=== PATIENT | male | born 1945 | race Caucasian/White ===

== ENCOUNTER 2020-02-02 16:15 | Outpatient (REF) | payer OTHER, SELFPAY ==
[2020-02-02 22:21] LABS: Abs Immature Grans 0.04 10^3/uL (0.0-0.06); Absolute Basophil Count 0.03 10^3/uL (0.0-0.2); Absolute Eosinophil Count 0.19 10^3/uL (0.0-0.7); Absolute Lymphocyte Count 1.22 10^3/uL (1.2-3.4); Absolute Neutrophil Count 7.78 10^3/uL (1.2-6.7); Basophils % 0.3; Eosinophils % 1.9; HCT 39.6 % (40.0-50.0); HGB 12.6 g/dL (13.5-17.5); Immature Grans % 0.4; Lymphocytes % 12.4; MCH 29.8 pg (27.0-33.0); MCHC 31.8 % (32.0-36.0); MCV 93.6 fL (80-95); MPV 10.2 fL (8.0-11.0); Monocytes % 6.1; Neutrophils % 78.9; Nucleated RBC 0 %; Platelet Count 365 10^3/uL (130-400); RBC 4.23 10^6/uL (4.36-5.78); RDW 12.9 % (11.8-14.1); RDW-SD 44.1 fL; WBC 9.86 10^3/uL (4.4-10.8)
[2020-02-02 22:47] LABS: ALT 15 U/L (16-63); AST 13 U/L (15-37); Albumin 3.7 g/dL (3.4-5.0); Alkaline Phosphatase 45 U/L (46-116); Anion Gap 6.2 mmol/L (3-11); BUN 24 mg/dL (7-18); Bilirubin, Total 0.4 mg/dL (0.2-1.0); CO2 28.8 mmol/L (21.0-32.0); CREATININE 0.84 mg/dL (0.70-1.30); Calcium 8.9 mg/dL (8.5-10.1); Calculated LDL 106 mg/dL (<100); Chloride 104 mmol/L (98-107); Cholesterol 182 mg/dL (<200); Glucose 87 mg/dL (74-106); HDL Cholesterol 63 mg/dL (40-60); Sodium 139 mmol/L (136-145); Total Protein 6.5 g/dL (6.4-8.2); Triglyceride 68 mg/dL (<150)
== END 2020-02-02 16:35 ==
LOC: NCHCN 16:15
PROVIDERS: PCP Family Medicine; Visit Provider Family Medicine
DX: D64.9 Anemia, unspecified (principal); N41.9 Inflammatory disease of prostate, unspecified; E23.2 Diabetes insipidus; Z00.00 Encounter for general adult medical examination without abnormal findings
CPT/HCPCS: 80053; 80061; 85025

== ENCOUNTER 2020-07-20 13:09 | Outpatient (REF) | payer OTHER, SELFPAY ==
[2020-07-20 13:04] LABS: HCT 39.5 % (40.0-50.0); HGB 12.8 g/dL (13.5-17.5); MCH 29.8 pg (27.0-33.0); MCHC 32.4 % (32.0-36.0); MCV 92.1 fL (80-95); MPV 9.7 fL (8.0-11.0); Platelet Count 372 10^3/uL (130-400); RBC 4.29 10^6/uL (4.36-5.78); RDW 12.9 % (11.8-14.1); RDW-SD 43.6 fL; WBC 6.98 10^3/uL (4.4-10.8)
--- OUTSIDE RECORDS SUMMARY | 2020-07-20 13:13 | XMS_ITS | Encounter Summary ---
:1945 Author Organization [facility] [address] Care Team Providers Name Role Phone MD Lopez Primary Care Provider Reason for Visit Reason Comments Medication Refill Encounter Details Date Type Department Care Team Description 02/24/2020 Refill Primary Care at Maddie Garcia P rostatitis, unspecified Patterson Day prostatitis type 10 [place] [address] [place] [address] [address] [phone] PRIMARY CARE [place], [place] [address] [phone] Social History Tobacco Use Types Packs/Day Years Used Date Former Smoker Quit: 04/14/18 70 Smokeless Tobacco: Never Used Alcohol Use Drinks/Week oz/Week Comments Yes 7 Cans of beer 7.0 Sex Assigned at Date Recorded Not on file documented as of this encounter Miscellaneous Notes Telephone Encounter - Jeny James CMA - 02/24/2020 1:36 PM EST Last Prescription Fill Date: 05/05/2019 Number Dispensed and Refills: #30 / Last Related Office Visit: 04/21/2019 Upcoming Appointment: 04/24/2020 No flowsheet data found. Lab Results Component Value Date HGB 12.9 (L) 05/11/2019 HCT 40.4 (L) 05/11/2019 CHLPL 188 05/11/2019 TRIG 52 05/11/2019 HDL 56 05/11/2019 LDLCHOL 122 05/11/2019 ALT 14 11/27/2018 AST 11 11/27/2018 NA 138 11/27/2018 K 4.6 11/27/2018 CL 101 11/27/2018 CREATININE 0.85 11/27/2018 TSH 1.471 (External Lab) 01/23/2018 HA1C 5.5 (External Lab) 03/20/2017 documented in this encounter Plan of Treatment Not on filedocumented as of this encounter Visit Diagnoses Diagnosis Prostatitis, unspecified prostatitis typ e documented in this encounter
--- OUTSIDE RECORDS SUMMARY | 2020-07-20 13:13 | XMS_ITS | Encounter Summary ---
:1945 Author Organization [facility] [place] [address] Care Team Providers Name Role Phone MD Lopez Primary Care Provider Encounter Details Date Type Department Care Team Description 09/10/2019 Telephone Primary Care at [facility] Alicia Perera, RN [address] [place] [address] Social History Tobacco Use Types Packs/Day Years Used Date Former Smoker Quit: 04/14/18 70 Smokeless Tobacco: Never Used Alcohol Use Drinks/Week oz/Week Comments Yes 7 Cans of beer 7.0 Sex Assigned at Date Recorded Not on file documented as of this encounter Miscellaneous Notes Telephone Encounter - Alicia Perera RN - 09/14/2019 9:00 AM EDT Patient notified. elephone Encounter - Maddie Marroquin MD - 09/13/2019 5:37 PM EDT He has scoliosis, but no clear evidence of kyphosis on the radiology report. I was hoping he wanted to go to the spine clinic as referred, then they would be able to give their own interpretation of the xray and discuss from there. Telephone Encounter - Alicia Perera, RN - 09/10/2019 2:56 PM EDT Patient called for xray results. He is wondering if his results could be the cause of his SOB documented in this encounter Plan of Treatment Not on filedocumented as of this encounter Visit Diagnoses Not on filedocumented in this encounter
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
--- OUTSIDE RECORDS SUMMARY | 2020-07-20 13:13 | XMS_ITS | Encounter Summary ---
:1945 Author Organization [facility] [place] [address] Care Team Providers Name Role Phone MD Lopez Primary Care Provider Reason for Referral Consultation (Routine) Status Reason Specialty Diagnoses / Referred By Referred To Procedures Contact Contact Closed Specialty Pain and Spine Diagnoses SOB (shortness of breath) Kyphosis, unspecified kyphosis type, unspecified spinal region Spondylosis Spine - ?Kyphsis/ XRScoli 09/01 in eDH *Yazmin or Maura Marroquin, [facility] MD [facility] Requested [address] [facility] [address] [place] [phone] Phone: Electronically signed by Maryann Marroquin MD at Encounter Details Date Type Department Care Team Description 08/31/2019 Telephone Primary Care at Maryann Mendoza MD Day [place] [address] [place] [address] [phone] Social History Tobacco Use Types Packs/Day Years Used Date Former Smoker Quit: 04/14/18 70 Smokeless Tobacco: Never Used Alcohol Use Drinks/Week oz/Week Comments Yes 7 Cans of beer 7.0 Sex Assigned at Date Recorded Not on file documented as of this encounter Miscellaneous Notes Addendum Note - Maryann Marroquin MD - 09/03/2019 10:57 AM EDT Addended by: MARYANN MARROQUIN on: 09/03/2019 10:57 AM Modules accepted: Orders Telephone Encounter - Maryann Marroquin MD - 09/01/2019 10:07 AM EDT Ordered thanks elephone Encounter - Alicia Perera RN - 09/01/2019 8:29 AM EDT Patient is fine with xray first elephone Encounter - Maryann Marroquin MD - 08/31/2019 7:40 PM EDT Would you be able to ask patient if he would be willing to have an xray of the spine to verify kyphosis first? I don't think he has ever had an xray of the spine so I feel funny referring to the spine center without this. elephone Encounter - Haleigh Addison - 08/31/2019 4:[address] Marroquin, I spoke with this patient and he clarified that it is back pain with breathing issues. Feels he might have kyphosis. I put a referral in for you to sing to [facility] Spine Telephone Encounter - Maryann Marroquin MD - 08/31/2019 11:52 AM EDT I need clarification for referral- For kyphosis of the spine and possible breathing issues associated to this, he would go to the spineclinic at [facility]. For leg issues, is it a specific joint that is bothering him? Is it radiating leg pain coming from his low back? Not sure if he was trying to connect the two or if these are two separate issues. elephone Encounter - Rosie Levin - 08/31/2019 10:47 AM EDT He would like a referral to [facility]. His legs are bothering him a lot along with breathing issues. He thinks he may have Kyphosis documented in this encounter Plan of Treatment Scheduled Referrals Name Type Priority Associated Diagnoses Order S chedule Referral to Spine Outpatient Referral Routine SOB (shortness o f Ordered: Center breath) 09/03/2019 Kyphosis, unspecified kyphosis type, unspecified spinal region Spondylosis documented as of this encounter Visit Diagnoses Diagnosis SOB (shortness of breath) Shortness of breath Kyphosis, unspecified kyphosis type, uns pecified spinal region Spondylosis Spondylosis of unspecified site without mention of myelopathy documented in this encounter
--- OUTSIDE RECORDS SUMMARY | 2020-07-20 13:13 | XMS_ITS | Continuity of Care Document ---
:1945 Author Organization [facility] Address [address] [place] [address] Care Team Providers Name Role Phone [facility] Primary Care Physician Unavailable Encounter [facility] Date(s): 05/19/19 - 05/19/19 [facility] [address] [place], [place] [address] Encounter Diagnosis Combined forms of age-related cataract, bilateral (Discharge Diagnosis) - 05/19/19 Ophthalmic migraine (Discharge Diagnosis) - 05/19/19 Pinguecula, left eye (Discharge Diagnosis) - 05/19/19 Myopia with presbyopia of both eyes (Discharge Diagnosis) - 05/19/19 Discharge Disposition: Home or Self Care Attending Physician: Joey Fagan OD Admitting Physician: Joey Fagan OD Allergies, Adverse Reactions, Alerts Substance Reaction Severity Status Cipro rash Moderate Active Assessment and Plan Future Appointments Medications Flomax 0.4 mg, Oral, Daily, 0 Refill(s) Start Date: 04/04/16 Status: Ordered Problem List Condition Effective Dates Status Health Status Informant Cataract, cortical, both Active eyes(Confirmed) Cortical age-related cataract of both Active eyes(Confirmed) Bilateral dry eyes(Confirmed) Active Myopia with presbyopia(Confirmed) Active Ophthalmic migraine(Confirmed) Active PINGUECULA(Confirmed) Active Pinguecula, left eye(Confirmed) Active Social History Social History Type Response Smoking Status Former smoker, quit more fernando n 30 days ago entered on: 05/19/19 Sex
--- OUTSIDE RECORDS SUMMARY | 2020-07-20 13:13 | XMS_ITS | Continuity of Care Document ---
:1945 Author Organization [facility] Address [address] [place] [phone] Care Team Providers Name Role Phone [facility] Primary Care Physician Unavailable Encounter [facility] Date(s): 04/20/20 - 04/20/20 [facility] [address] [place], [place] [address] Discharge Disposition: Other Allergies, Adverse Reactions, Alerts Substance Reaction Severity [...]
--- OUTSIDE RECORDS SUMMARY | 2020-07-20 13:13 | XMS_ITS | Encounter Summary ---
:1945 Author Organization [facility] [place] [address] Care Team Providers Name Role Phone MD Lopez Primary Care Provider Reason for Visit Reason Comments Medication Refill Encounter Details Date Type Department Care Team Description 05/25/2020 Refill Primary Care at [facility]ie Garcia P rostatitis, unspecified [place] [address] prostatitis type 10 [place] [address] [place] [address] PRIMARY CARE [place], [place] [address] [phone] Social History Tobacco Use Types Packs/Day Years Used Date Former Smoker Quit: 04/14/18 70 Smokeless Tobacco: Never Used Alcohol Use Drinks/Week oz/Week Comments Yes 7 Cans of beer 7.0 Sex Assigned at Date Recorded Not on file documented as of this encounter Miscellaneous Notes Telephone Encounter - Oly Pinzon, SORTING SUPERVISOR - 05/25/2020 11:08 AM EST tamsulosin (Flomax) 0.4 mg Capsule Last Prescription Fill Date: 02/24/2020 Number Dispensed and Refills: 90/3 Last Related Office Visit: 04/21/2019 Upcoming Appointment: Visit date not found No flowsheet data found. Lab Results Component [...]
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
--- OUTSIDE RECORDS SUMMARY | 2020-07-20 13:13 | XMS_ITS | Encounter Summary ---
:1945 Author Organization [facility] Address [address] [place] [address] Care Team Providers Name Role Phone MD Lopez Primary Care Provider Encounter Details Date Type Department Care Team Description 05/11/2019 Ancillary Procedure Radiology Ultrasound at Maryann Marroquin, Former smoker the [facility] at [facility] [address] [place] [address] PRIMARY CARE [phone] [place], [place] [address] [phone] Social History Tobacco Use Types Packs/Day Years Used Date Former Smoker Quit: 04/14/18 70 Smokeless Tobacco: Never Used Alcohol Use Drinks/Week oz/Week Comments Yes 7 Cans of beer 7.0 Sex Assigned at Date Recorded Not on file documented as of this encounter Plan of Treatment Not on filedocumented as of this encounter Procedures Procedure Name Priority Date/Time Associated Comments Diagnosis US ULTRASOUND AAA Routine 05/11/2019 10:16 AM Former smoker Re sults for this SCREENING EST procedure are i n the results section. documented in this encounter Results US AAA Screening (05/11/2019 10:16 AM EST) Specimen Impressions Performed At [facility] Aorta Screening Summary No evidence of abdominal aortic aneurym with focal plaque visualized in mid to distal ??po rtions of aorta. I ??viewed the images and agree with kasia norton above interpretation. ?Johnathan Georges, Staff Rc menjivar Electronically Signed Final Report ?? 10:24 am Narrative Performed At [facility] Aorta ? (S igned Final 05/11/2019 10:24 am) PATIENT INFO: ID #: ? [id number] ?: ??[birth year] (73 yrs) Name: ? SUNIL PHAN ? Visi t Date: 05/11/2019 09:56 am ? LYNNE PERFORMED BY: Performed By: ? Beck HARMAN, Montse Attending: ?Destini YOO, Johnathan Lopez Referred By: ?MAYRANN MARROQUIN Location: ? [address] SERVICE(S) PROVIDED: ??UAORTA - AAA Screening - [id number] INDICATIONS: ??73 yo M former smoker COMPARISON: No prior imaging studies for comparison . ------ AORTA: ------ Measurements (cm): Proximal ? AP: ?? 2.6 ?TV: ?? 2.9 Mid ?AP: ?? 1.9 ?TV: ?? 1.9 Distal ? AP: ?? 1.8 ?TV: ?? 1.8 Rt Iliac ? AP: ?? 1.2 ?TV: ?? 1.3 Lt Iliac ? AP: ?? 1.1 ?TV: ?? 1.4 Comment: ?Focal plaque in mid and d istal aorta. Procedure Note Department, Radiology - 05/11/2019 10:25 AM EST Aorta (Si gned Final 05/11/2019 10:24 am) PATIENT INFO: ID #: [id number] : [birth year] (73 yrs) Name: SUNIL PHAN Visit Date: 05/11/2019 09:56 am LYNNE PERFORMED BY: Performed By: Montse Solares RDMS Attending: Johnathan Georges MD Referred By: MARYANN MARROQUIN Location: SERVICE(S) PROVIDED: UAORTA - AAA Screening - [id number] INDICATIONS: 73 yo M former smoker COMPARISON: No prior imaging studies for comparison . ------ AORTA: ------ Measurements (cm): Proximal AP: 2.6 TV: 2.9 Mid AP: 1.9 TV: 1.9 Distal AP: 1.8 TV: 1.8 Rt Iliac AP: 1.2 TV: 1.3 Lt Iliac AP: 1.1 TV: 1.4 Comment: Focal plaque in mid and dis nomi aorta. IMPRESSION Aorta Screening Summary No evidence of abdominal aortic aneurym with focal plaque visualized in mid to distal por tions of aorta. I viewed the images and agree with the above interpretation. Johnathan Georges, Staff Physicia n Electronically Signed Final Report 10:24 am Performing Organization Address City/State/ZIP Code Phon e Number RAD [place], [place] documented in this encounter Visit Diagnoses Diagnosis Former smoker Personal history of tobacco use, present ing hazards to health documented in this encounter
--- OUTSIDE RECORDS SUMMARY | 2020-07-20 13:13 | XMS_ITS | Continuity of Care Document ---
:1945 Author Organization [facility] Address [address] [place] [address] Care Team Providers Name Role Phone [facility] Primary Care Physician Unavailable Encounter [facility] Date(s): 06/14/20 - 06/14/20 [facility] [address] [place], [place] [address] Encounter Diagnosis Combined forms of age-related cataract, bilateral (Discharge Diagnosis) - 06/14/20 Ophthalmic migraine (Discharge Diagnosis) - 06/14/20 Myopia with presbyopia of both eyes (Discharge Diagnosis) - 06/14/20 Pinguecula, left eye (Discharge Diagnosis) - 06/14/20 Dermatochalasis of both upper eyelids (Discharge Diagnosis) - 06/14/20 Bilateral dry eyes (Discharge Diagnosis) - 06/14/20 Discharge Disposition: Home Attending Physician: Joey Fagan OD Admitting Physician: Joey Fagan OD Allergies, Adverse Reactions, Alerts Substance Reaction Severity Status Cipro rash Moderate Active Assessment and Plan Future Appointments Functional Status 06/14/20 Recent Travel History No recent travel Family Member Travel History No recent travel COVID-19 Screening None Medications Flomax 0.4 mg, Oral, Daily, 0 [...] fernando n 30 days ago entered on: 06/14/20 Sex
--- OUTSIDE RECORDS SUMMARY | 2020-07-20 13:13 | XMS_ITS | Encounter Summary ---
:1945 Author Organization [facility] Address [address] [place] [address] Care Team Providers Name Role Phone MD Lopez Primary Care Provider Encounter Details Date Type Department Care Team Description 05/11/2019 Laboratory Appointment Laboratory at [facility] Normocytic anemia; [facility] Screening for diabetes melli tus; [address] Screening for hyperlipidemia ; [place], [place] Screening for p rostate cancer [id number] Social History Tobacco Use Types Packs/Day Years Used Date Former Smoker Quit: 04/14/18 70 Smokeless Tobacco: Never Used Alcohol Use Drinks/Week oz/Week Comments Yes 7 Cans of beer 7.0 Sex Assigned at Date Recorded Not on file documented as of this encounter Plan of Treatment Not on filedocumented as of this encounter Procedures Procedure Name Priority Date/Time Associated Diagnosis Comme nts HC PROSTATE SPECIFIC Routine 05/11/2019 9:39 Screening for pr ostate Results for this AG SCREENING AM EST cancer procedure are i n the results section. HEMOGRAM Routine 05/11/2019 9:39 Normocytic anemia Result s for this AM EST procedure are i n the results section. DIFFERENTIAL, Routine 05/11/2019 9:39 Normocytic anemia Resul ts for this AUTOMATED AM EST procedure are i n the results section. HC VENIPUNCTURE Routine 05/11/2019 9:39 Normocytic anemia AM EST HC GLUCOSE FASTING Routine 05/11/2019 9:39 Screening for diab etes Results for this AM EST mellitus procedure are i n the results section. LIPID PANEL (REFLEX Routine 05/11/2019 9:39 Screening for Res ults for this DIRECT LDL) AM EST hyperlipidemia procedure are in the results section. documented in this encounter Results Differential, Automated (05/11/2019 9:39 AM EST) Neutrophils % 69.4 % [facility] Neutr Abs (ANC) 4.15 1 - 6 [facility] x10(3)/mcL [facility] Lymphocytes % 19.4 % [facility] Lymphocytes Abs 1.2 0.9 - 3.2 [facility] x10(3)/[facility]L [facility] Monocytes % 6.5 % [facility] Monocyte Abs 0.4 0.3 - 0.9 [facility] x10(3)/mcL [facility] Eosinophils % 3.7 % [facility] Eosinophils Abs 0.2 0.0 - 0.4 [facility] x10(3)/mcL [facility] Basophils % 0.7 % [facility] Basophils Abs 0.0 0.0 - 0.1 [facility] x10(3)/[facility]L [facility] Immature Gran % 0.30 % [facility] Comment: [facility] Immature granulocytes(IG's)percentage and absolute cou nt will include metamyelocytes, myelocytes, and promyelo cytes. Blood smears from CBCs yielding IG's will be scanned manually for concor dance. If this scan disagrees with the automated IG or if promyelocytes are noted, a manual d ifferential will be performed. Yamini Gran Abs 0.02 0.00 - 0.04 [facility] x10(3)/[facility] Specimen Blood specimen (specimen) Resulting Agency Comment Spec In Lab / [facility] Performing Organization Address City/State/ZIP Code Phon e Number [facility] [address] [place], [place] [address] Hemogram (05/11/2019 9:39 AM EST) Pathologist Sig silvina WBC 6.0 4.0 - 9.5 [facility] x10(3)/mcL [facility] RBC 4.34 (L) 4.58 - 5.54 [facility] x10(6)/mcL [facility] Hemoglobin 12.9 (L) 13.7 - 16.5 gm/dL [facility] Hematocrit 40.4 (L) 40.5 - 48.5 % LAB[facility]ORY MCV 93.1 82.9 - 93.1 fL LABOR[facility]ORY MCH 29.7 27.5 - 32.1 pg LAB[facility]ORY MCHC 31.9 (L) 32.0 - 35.7 gm/dL LAB[facility]ORY Platelets 393 (H) 145 - 357 x10(3)/mcL LABOR[facility]ORY RDWSD 46.5 (H) 36.0 - 45.0 fL LABORATORY RDWCV 13.2 11.4 - 13.8 % LAB[facility]ORY MPV 9.8 7.6 - 12.9 fL LABORATORY Specimen Blood specimen (specimen) Resulting Agency Comment Spec In Lab / [facility] Performing Organization Address City/[facility]/ZIP Code Phon e Number LABORATORY [address] [place], [place] [address] PSA Screen (05/11/2019 9:39 AM EST) Pathologist Sig nature PSA Total 2.39 0.00 - 4.00 ng/mL [facility]AT[facility] RY Specimen Blood specimen (specimen) Resulting Agency Comment Spec In Lab / [facility] Performing Organization Address City/[facility]/ZIP [facility] Phon e Number LABORATORY [address] [place], [place] [address] Lipid Panel (Reflex Direct LDL) (05/11/2019 9:39 AM EST) Chol, Total 188 mg/dL Comment: LABORATORY Lower Risk: <200 mg/dL Average Risk: 200-239 mg/dL Higher Risk: >xy=611 mg/dL Triglycerides 52 mg/dL Comment: LABORATORY Average Risk/Lower Risk: <150 mg/dL Borderline High Risk: 150-199 mg/dL High Risk: 200-499 mg/dL Very High Risk: >os=817 mg/dL HDL 56 mg/dL Comment: LABORATORY Males: ?? Higher Risk: <40 mg/dL Females: ?? HIgher Risk: <50 mg/dL LDL Cholesterol 122 mg/dL Comment: LABORATORY Lowest Risk: <100 mg/dL Lower Risk: 100-129 mg/dL Borderline High Risk: 130-159 mg/dL High Risk: 160-189 mg/dL Very High Risk: >nm=997 mg/dL Chol/HDL Ratio 3.4 ratio [facility] Lipid Interpretation See Note [facility] Comment: LABORATORY Lipid management should be g uided by a patient? s ASCVD risk, goals and preferences. ACC/AHA Guidelines recommend high intensity statin if clinical ASCVD or LDL greater than or equal to 190 mg/dL. http://Ecoark.com/KNO-YFF-Mopbayhav Adults aged 40-75 with LDL 70-189 mg/dL should have th eir 10 year ASCVD risk estimated with the ACC/AHA ASCVD risk patient care nursing assistant http://tools.acc.org/PEDWB-Yhlv-Jwlupcvhr/ Statin should be discussed if risk greater than or equ al to 7.5% in non-diabetics. With diabetes, moderate i ntensity statin is recommended if risk less than 7.5%, high intensity if risk greater than or equal to 7.5%. Annual lipid monitoring on statins is not necessary. Evaluate secondary causes of Triglycerides greater fernando n 500 mg/dL or LDL greater than 190 mg/dL: See table 6 of ACC/AHA Guideli ne. Lifestyle modification is a critical component of ASCV D risk reduction. Specimen Blood specimen (specimen) Resulting Agency Comment Spec In Lab / [facility] Performing Organization Address City/State/ZIP Code Phon e Number [facility] [address] [place], [place] [address] Glucose, fasting (05/11/2019 9:39 AM EST) Glucose Fasting 101 (H) 65 - 99 [facility] Comment: mg/dL LABORATORY ?Fasting* Glucose Interpretive Criteria Normal ?65-99 mg/dL Impaired Fasting glucose ?100-12 5 mg/dL Consistent with Diabetes Mellitus ? >or= 126 mg/ dL *Fasting is defined as no caloric intake for at least 8 hours In the absence of unequivocal hyperglycemia a plasma glucose value of >or= 126 mg/dL should be repeated on a subsequent day. Diagnosis and Classification of Diabetes Mellitus, Position Statement from the [place] [employer]. ??Diabetes Care, Volume 33, Supplement 1, Apr 2009 Specimen Blood specimen (specimen) Resulting Agency Comment Spec In Lab / [facility] Performing Organization Address City/State/ZIP Code Phon e Number [facility] [address] [place], [place] [address] documented in this encounter Visit Diagnoses Diagnosis Normocytic anemia Anemia, unspecified Screening for diabetes mellitus Screening for hyperlipidemia Screening for lipoid disorders Screening for prostate cancer Special screening for malignant neoplasm of prostate documented in this encounter
--- OUTSIDE RECORDS SUMMARY | 2020-07-20 13:13 | XMS_ITS | Clinical Summary ---
:1945 Author Organization [facility] Address [address] [place] [address] Care Team Providers Name Role Phone MD Lopez Primary Care Provider Allergies Active Allergy Reactions Severity Noted Date Comments Ciprofloxacin Rash 06/19/2016 Medications Medication Sig Dispensed Refills Start Date End Date Status aspirin 325 mg tablet 0 01/02/2010 Active fish oil-omega-3 fatty Take 2 g by mouth 0 Active acids 1,000 mg Capsule daily. VITAMIN K2 ORAL Take by mouth. 0 Active cholecalciferol, Take by mouth. 0 Active Vitamin D3, (VITAMIN D) 1,000 unit Capsule Ginkgo Biloba 60 mg Take 1 capsule by 0 Active Capsule mouth daily. ibuprofen Take 400 mg by 0 Activ e (ADVIL;MOTRIN) 200 mg mouth 2 times Tablet daily as needed. magnesium oxide 200 mg Take by mouth. 0 Active magnesium Tablet triamcinolone Apply 1 each 30 g 0 04/21/2019 Ac tive (KENALOG) 0.1 % topically 2 times Ointment daily. Additional Information Patient not taking. Reported on 09/21/2019 Lactobacillus acidophilus Take by mouth. 0 Active (PROBIOTIC ORAL) ascorbic acid, vitamin C, Take by mouth. 0 Active (VITAMIN C) 500 mg Tablet, Chewable zinc sulfate (Zincate) 220 Take 220 mg by mouth 0 Active (50) mg Capsule daily. tamsulosin (Flomax) 0.4 mg Take 1 capsule by mouth 90 capsule 3 05/25/2020 Active CapsuleIndications: daily. 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 Diverticulosis of colon 04/13/2018 Erectile dysfunction 04/13/2018 Fatigue 04/13/2018 Hemorrhoids 04/13/2018 Muscle spasm 04/13/2018 Neuropathy 04/13/2018 Urinary frequency 04/13/2018 Trigeminal neuralgia 04/13/2018 Atrial septal aneurysm 03/09/2018 Irritable bowel syndrome 06/24/2016 Scoliosis 06/24/2016 Sternoclavicular joint subluxation, right, initial enc ounter 06/24/2016 Prostatitis 02/13/2016 Lyme disease 09/13/2015 Right foot pain 12/07/2010 Encounters Date Type Specialty Care Team Description 05/25/2020 Refill Primary Care Maddie Marroquin MD Prostat itis, unspecified prostatitis typ e from Last 3 Months Immunizations Name Administration Dates Next Due Influenza Vaccine PF, Seasonal, 04/19/2016 (Deferred: Patien t Refused - Injectible [facility]; Refused; ) Pneumococcal Conjugate (13 Valent) 02/27/2015 Pneumococcal Polyvalent 23 03/03/2017 Family History Medical History Relation Name Comments Cerebral Aneurysm Father Breast Cancer Mother Relation Name Status Comments Father Mother Social History Tobacco Use Types Packs/Day Years Used Date Former Smoker Quit: 04/14/18 70 Smokeless Tobacco: Never Used Alcohol Use Drinks/Week oz/Week Comments Yes 7 Cans of beer 7.0 Sex Assigned at Date Recorded Not on file Last Filed Vital Signs Vital Sign Reading Time Taken Comments Blood Pressure 126/77 09/21/2019 9:31 AM EDT Pulse 69 09/21/2019 9:31 AM EDT Temperature 37.2 ??C (99 ??F) 11/27/2018 2:57 PM EDT Respiratory Rate 16 11/27/2018 2:57 PM EDT Oxygen Saturation 94% 04/21/2019 10:36 AM EST Inhaled Oxygen Concentration - - Weight 61.2 kg (135 lb) 09/21/2019 9:31 AM EDT Height 179.1 cm (5' 10.5) 09/21/2019 9:31 AM EDT Body Mass Index 19.1 09/21/2019 9:31 AM EDT Plan of Treatment Health Maintenance Due Date Last Done Comments Hepatitis C Screening 1963 Tdap adult 1965 Tetanus vaccine 1965 Zoster vaccine (1 of 2) 1996 Influenza (Flu) vaccine (1 of 1 - 12/14/2019 Influenza standard series) Lipid Screening 05/11/2024 05/11/2019, 03/10/2015, 03/14/2012 Colonoscopy 12/21/2024 12/21/2014, 12/21/2014, 03/22/2009 (See prior EHR) Pneumo vaccine (65+) Completed 03/03/2017, 02/27/2015 AAA Screen Completed 05/11/2019 Insurance Payer Benefit Plan / Subscriber ID Effective Dates Phone Addre ss Type Group A[facility]NA[facility] [id number] 2017-Present MEDICARE MEDICARE COMPLETE Guarantor Name Account Type Relation to Date of Phone Billing Address Patient Sunil Rg Personal/Famil Self 1945 [address] [place] [place] (Home) [place] [address] Advance Directives Documents on File Type Date Recorded 

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
--- OUTSIDE RECORDS SUMMARY | 2020-07-20 13:13 | XMS_ITS | Encounter Summary ---
:1945 Author Organization [facility] Address [address] [place] [address] Care Team Providers Name Role Phone MD Lopez Primary Care Provider Encounter Details Date Type Department Care Team Description 05/11/2019 Ancillary Procedure Radiology XRay at [place], [facility] onic pain of the Multi-Specialty MD Maddie right knee Clinic at [facility] [address] [place] [facility] [address] [place], [place] [phone] [phone] Social History Tobacco Use Types Packs/Day Years Used Date Former Smoker Quit: 04/14/18 70 Smokeless Tobacco: Never Used Alcohol Use Drinks/Week oz/Week Comments Yes 7 Cans of beer 7.0 Sex Assigned at Date Recorded Not on file documented as of this encounter Plan of Treatment Not on filedocumented as of this encounter Procedures Procedure Name Priority Date/Time Associated Diagnosis Comme nts XR KNEE 4 OR MORE Routine 05/11/2019 10:03 AM Chronic pain of Results for this VIEWS RIGHT EST right knee procedure are i n the results section. documented in this encounter Results XR Knee 4 or more views Right (05/11/2019 10:03 AM EST) Specimen Impressions Performed At Right knee joint degenerative change most pronounced i n the medial DH RAD compartment where it is moderate in severity. Thank you for letting us participate in the care of th is patient. For questions regarding this report, please contact the number below . ? Narrative Performed At EXAMINATION: XR KNEE 4 OR MORE VIEWS [facility] CLINICAL HISTORY: 73 yo M with R knee pa in TECHNIQUE: 4 views RIGHT knee COMPARISON: None FINDINGS: No fracture. No subluxation. There is moderate bilater al medial compartment joint space height loss slightly more pronounced in th e left knee. Lateral compartment joint space height is relatively well main tained. There are small left-sided medial compartment marginal osteophytes and tiny patellofemoral osteophytes. No patellar enthesopathy. As a small supr apatellar knee joint effusion. Procedure Note Department, Radiology - 05/11/2019 10:28 AM EST EXAMINATION: XR KNEE 4 OR MORE VIEWS [facility] CLINICAL HISTORY: 73 yo M with R knee pa in TECHNIQUE: 4 views RIGHT knee COMPARISON: None FINDINGS: No fracture. No subluxation. There is mo derate bilateral medial compartment joint space height loss slightly more pr onounced in the left knee. Lateral compartment joint space height is relati vely well maintained. There are small left-sided medial compartment marginal o steophytes and tiny patellofemoral osteophytes. No patellar enthesopathy. A s a small suprapatellar knee joint effusion. IMPRESSION Right knee joint degenerative change mos t pronounced in the medial compartment where it is moderate in severity. Thank you for letting us participate in the care of this patient. For questions regarding this report, please contact e number below. Electronically signed by: Wallace Lamb [facility] ([phone]), at 05/11/2019 10:23 AM Performing Organization Address City/State/ZIP Code Phon e Number [facility], [place] documented in this encounter Visit Diagnoses Diagnosis Chronic pain of right knee documented in this encounter
--- OUTSIDE RECORDS SUMMARY | 2020-07-20 13:13 | XMS_ITS | Encounter Summary ---
:1945 Author Organization [facility] Address [address] [place] [address] Care Team Providers Name Role Phone MD Lopez Primary Care Provider Encounter Details Date Type Department Care Team Description 09/02/2019 Ancillary Procedure Radiology XRay at [facility], SOB (shortness of breath); the Multi-Specialty MD Maddie Kyphosis, unspecified kyphosis type, uns pecified spinal region Clinic at [facility] [address] [place] [facility] [facility] [address] [place], [place] [phone] Social History Tobacco Use Types Packs/Day Years Used Date Former Smoker Quit: 04/14/18 70 Smokeless Tobacco: Never Used Alcohol Use Drinks/Week oz/Week Comments Yes 7 Cans of beer 7.0 Sex Assigned at Date Recorded Not on file documented as of this encounter Plan of Treatment Not on filedocumented as of this encounter Procedures Procedure Name Priority Date/Time Associated Diagnosis Comme nts XR SCOLIOSIS OR Routine 09/02/2019 9:43 AM SOB (shortness of Results for this TOTAL SPINE 1 VIEW EDT breath) procedure are in Kyphosis, the results unspecified kyphosis section . type, unspecified spinal region documented in this encounter Results XR Scoliosis or Total Spine 1 view (09/02/2019 9:43 AM EDT) Specimen Impressions Performed At 1. ??Mild dextroscoliosis of the thoraco lumbar spine. RAD 2. ??Spondylosis of lumbar spine. Thank you for letting us participate in the care of is patient. For questions regarding this report, please contact the number below . ? Narrative Performed At EXAMINATION: XR SCOLIOSIS OR TOTAL SPINE 1 VIEW RAD CLINICAL HISTORY: ?kyphosis as cause for SOB TECHNIQUE: 1 views of the total spine COMPARISON: None FINDINGS: There are 12 rib-bearing and 5 nonrib-bearing lumbar-t ype vertebral bodies. No vertebral body anomaly. Narrowed L5-S1 disc spaces wit h endplate sclerosis and osteophyte formation. There is dextroscoliosis of the thoracolumbar spine wi th apex at T12-L1 level. The curvature is approximately 10 degree s. Procedure Note Department, Radiology - 09/02/2019 9:59 AM EDT EXAMINATION: XR SCOLIOSIS OR TOTAL SPINE 1 VIEW CLINICAL HISTORY: ?kyphosis as cause for SOB TECHNIQUE: 1 views of the total spine COMPARISON: None FINDINGS: There are 12 rib-bearing and 5 nonrib-be aring lumbar-type vertebral bodies. No vertebral body anomaly. Narrowed L5-S1 d isc spaces with endplate sclerosis and osteophyte formation. There is dextroscoliosis of the thoracol umbar spine with apex at T12-L1 level. The curvature is approximately 10 degree s. IMPRESSION 1. Mild dextroscoliosis of the thoracol umbar spine. 2. Spondylosis of lumbar spine. Thank you for letting us participate in the care of this patient. For questions regarding this report, please contact [facility] number below. Performing Organization Address City/State/ZIP Code Phon e Number [facility] [place] documented in this encounter Visit Diagnoses Diagnosis SOB (shortness of breath) Shortness of breath Kyphosis, unspecified kyphosis type, uns pecified spinal region documented in this encounter
--- OUTSIDE RECORDS SUMMARY | 2020-07-20 13:14 | XMS_ITS | Encounter Summary ---
:1945 Author Organization [facility] [place] [address] Care Team Providers Name Role Phone MD Lopez Primary Care Provider Reason for Visit Reason Comments Medication Refill Encounter Details Date Type Department Care Team Description 05/05/2019 Refill Primary Care at [facility] P rostatitis, unspecified [place] Day prostatitis type 10 [address] [place] [address] [address] [address] [phone] [facility]IMARY [facility]ARE [place], [place] [address] [phone] Social History Tobacco Use Types Packs/Day Years Used Date Former Smoker Quit: 04/14/18 70 Smokeless Tobacco: Never Used Alcohol Use Drinks/Week oz/Week Comments Yes 7 Cans of beer 7.0 Sex Assigned at Date Recorded Not on file documented as of this encounter Miscellaneous Notes Telephone Encounter - Charo Valdez - 05/05/2019 2:08 PM EST Last Prescription Fill Date: 04/13/19 Number Dispensed and Refills: # 30 / Last Related Office Visit: 04/21/19 Upcoming Appointment: 04/24/2020 No flowsheet data found. Lab Results Component Value Date HGB 13.2 (L) 11/27/2018 HCT 41.0 11/27/2018 CHLPL 186 (External Lab) 03/10/2015 TRIG 41 (External Lab) 03/10/2015 HDL 70 (ExtH) 03/10/2015 LDLCHOL 108 (External Lab) 03/10/2015 ALT 14 11/27/2018 AST 11 11/27/2018 NA 138 11/27/2018 K 4.6 11/27/2018 CL 101 11/27/2018 CREATININE 0.85 11/27/2018 TSH 1.471 (External Lab) 01/23/2018 HA1C 5.5 (External Lab) 03/20/2017 documented in this encounter Plan of Treatment Not on filedocumented as of this encounter Visit Diagnoses Diagnosis Prostatitis, unspecified prostatitis typ e documented in this encounter
--- OUTSIDE RECORDS SUMMARY | 2020-07-20 13:14 | XMS_ITS | Encounter Summary ---
:1945 Author Organization [facility] [address] Care Team Providers Name Role Phone Katherine Marroquin MD Primary Care Provider Reason for Referral Diagnostic Test (Routine) Status Reason Specialty Diagnoses / Referred By Referred To Procedures Contact Contact Closed Specialty Service Diagnoses SOB (shortness of breath) None [facility] Non-Inv Requested Procedures Echocardiogram Stress (Treadmill) [place] [address] Electronically signed by Angela Xiong APRN at Reason for Visit Diagnostic Test (Routine) Status Reason Specialty Diagnoses / Referred By Referred To Procedures Contact Contact Closed Specialty Service Diagnoses SOB (shortness of breath) None [facility] Non-Inv Requested Procedures Echocardiogram Stress (Treadmill) [place] [address] Encounter Details Date Type Department Care Team Description 02/16/2018 Hospital Encounter Non-Invasive Angela Xiong SOB (sh ortness of Cardiology Lab Lulu PACHECO breath) [address] [place], [place] [address] [address] [place], [place] [phone] Social History Tobacco Use Types Packs/Day Years Used Date Former Smoker Smokeless Tobacco: Never Used Alcohol Use Drinks/Week oz/Week Comments Yes 7 Cans of beer 7.0 Sex Assigned at Date Recorded Not on file documented as of this encounter Medications at Time of Discharge Medication Sig Dispensed Refills Start Date End Date VITAMIN K2 ORAL Take by mouth. 0 cholecalciferol, Vitamin Take by mouth. 0 D3, (VITAMIN D) 1,000 unit Capsule fish oil-omega-3 fatty Take 2 g by mouth 0 acids 1,000 mg Capsule daily. aspirin 325 mg tablet 0 01/02/2010 KELP ORAL Take by mouth. 0 0 tamsulosin (FLOMAX) 0.4 Take 0.4 mg by mouth 0 04/05/2019 mg Capsule, Sust. Release daily. 24 hr PYGEUM AFRICANUM BARK, by [facility]Non-Drug; 0 04/21/2019 BULK, [facility] Combo Route) route. Reported on 08/15/2016 Miscellaneous Medical by [facility]Non-Drug; 0 04/21/2019 Supply [facility] Combo Route) route. Oral flower pollen for BPH clobetasol (TEMOVATE) Apply once to twice 50 mL 2 01/1304/17/2018 0.05 % daily to scalp for 2 SolutionIndications: weeks then as needed Seborrheic dermatitis of for flares scalp ketoconazole (NIZORAL) 2 Use twice a week on 120 mL 3 04/17/2018 % ShampooIndications: scalp Seborrheic dermatitis of scalp zinc sulfate (ZINCATE) Take 220 mg by mouth 0 04/21/2019 220 (50) mg Capsule daily. Reported on 08/15/2016 GLUC HWANG/CHONDR HWANG A Take 1,000 mg by 0 04/21/2019 NA/NA/C/SE (GLUCOSAM-SOD mouth daily. CHONDRO-VIT C-MICHELLE ORAL) potassium chloride Take by mouth 0 (K-DUR) 10 mEq tablet daily. CIS Free Text Med - 0 01/02/201004/21 Ginkoba CIS Free Text Med - 0 01/02/201004/21 calcium citrate with magnesium VITAMIN B COMPLEX ORAL 0 01/02/2010 documented as of this encounter Plan of Treatment Not on filedocumented as of this encounter Procedures Procedure Name Priority Date/Time Associated Comments Diagnosis STRESS ECHOCARDIOGRAM W Routine 02/16/2018 1:41 SOB (zaid s of Results for this LMTD SPECTRAL DOPP, PM EST breath) procedur e are in COLOR DOPP the results section. documented in this encounter Results Echocardiogram Stress (Treadmill) (02/16/2018 1:41 PM EST) Pathologist Sig nature EF 55 HEARTLAB SYSTEM Specimen Narrative Performed At Procedure: ?Stress Echocardiogram HEARTLAB SYSTEM Patient: ?LYNNE PHAN ?(Age): 1945(72y) Med Rec#: ? [id number] ?Sex: ?M ? Site Loc: ? [facility] [place] ?Ht / Wt : ??177.8(cm)/63.5( Pt. Loc: ?Echo Lab ?BSA: ?1.79 Study Date: ?? 02/16/2018 ?Pt. Type: Tape: ? Referring: Angela Xiong Reading: Axel Ang ([id number]) Outsole Molder: Javier Willis Associate Scientist: Tate Castañeda Diagnosis: *Shortness of breath (R06.02) Stage ? BP ?HR ? Rest ?102/70 ?68 ? Peak ?150/74 ?148 ? Recovery ?118/68 ?63 ? SUMMARY: 1. CONCLUSION: There is no ekg or echocardiographic ev idence of ischemia at this level of stress. 2. REST: Left ventricular wall thickness , chamber size and global systolic function are normal. The visual ly estimated left ventricular ejection fraction is 55%. The right vent ricle is mildly dilated. The global right ventricular systolic functi on is normal. The pulmonary artery systolic pressure cannot be estimated due to in adequate tricuspid regurgitation jet. There is normal bi-at rial size. There is no hemodynamically significant valvular disease. There is an atrial septal aneurysm with possible patent foramen ov smiley. 3. STRESS: ??On a Todd protocol the patient exercised for 8 minutes 9 seconds, achieving 10.1 METS of exertion, a peak heart rate of 151 bpm (101% maximum predicted), and peak blood pressure of 150/74mmHg, stopping secondary to shortness of breath. ??The patie nt did not express feelings of chest discomfort. The restin g ekg demonstrated sinus bradycardia with PVC's. ??With exercise stress there were occasional premature atrial and premature ventricular contraction s. ??There were no diagnostic ST shifts with exercise stres s. There were frequent PVC's early in recovery. ??All left ventricula r wall segments augment their systolic function with exercise stress. Findings Rest: Study Quality: ? Adequate Left Ventricle: ? The left ventricul ar chamber size is normal. ?Left ventricular wall thickness is normal. ?There is normal global left ventricular systolic function. ??Ejection fraction is estimated to be 55%. ?There are no left ventricular segmental wall mot ion abnormalities. ?Doppler assessment is consistent w ith normal left sided filling pressure. Left Atrium: ? The left atrium is mi ldly dilated. Volume Index= 38.6ml/m2. ?There is a possible patent foramen ovale demonstrated by color Doppler. ?There is evidence of an inter-atri al septal aneurysm. Right Ventricle: ? The right ventric le is mildly dilated. ?Right ventricular global systolic function is normal. ?Pulmonary artery hypertension coul d not be assessed due to inadequate tricuspid regurgitation jet. Right Atrium: ? The right atrium is mildly dilated. Aortic Valve: ? The aortic valve is probably tricuspid. ?Systolic excursion of the aortic v alve is normal. ?There is no evidence of aortic malina ve stenosis. ?There is no evidence of aortic reg urgitation. Mitral Valve: ? The mitral valve juany flets appear normal. ?There is trace mitral regurgitatio n present. Tricuspid Valve: ? The tricuspid malina ve is probably normal. ?There is trace tricuspid regurgita tion present. Pericardium: ? The pericardium appears normal and there is no evidence of a pericardial effusion. Aorta: ? The aortic root is normal i n size. ?The ascending aorta was not well v isualized. Stress: ? EKG: normal sinus rhythm. ?EKG: Premature ventricular contrac tions noted. ?The patient's oxygen saturation wa s 100%. ?The patient is taking aspirin. Misc: ? Stress echo, color Doppler and ECG interpr etation performed. Findings Peak: Predicted Values:The patient achieved a maximum heart rate of 148 which is 99% of the maximum predicted heart rate (149 beats/ min). ??The target heart rate was achieved. Left Ventricle: ? Global left ventricular systolic function appears hyperdynamic. ?There are no left ventricular segmental wall mot ion abnormalities. Stress: ? Patient followed a Todd p rotocol. ?The patient exercised into stage 3 . ?The total exercise duration was:8: 09 min. ?The study was terminated because o f fatigue. ?The study was terminated because o f dyspnea.11/21 SOB by peak exercise. ?The patient did not express feelin gs of chest discomfort. ?The patient experienced shortness of breath. ?The blood pressure response was no rmal. ?Exercise capacity was excellent. ?The patient achieved a level of 10 METS. ?There were frequent ventricular premature beats. most frequent in early recovery. ?There were no significant ST segme nt changes. ?This was a negative electrocardiographic stress test for ischemia. ?This was a negative echocardiograp hic stress test. ?The patient's oxygen saturation wa s 99%. Chambers 2D ?Value ?Unit s (Range) ? RVIDd ??Base ? 4.2 ?cm ? IVSd (2D) ? 0.7 ?cm ? LVPWd (2D) ?0.7 ?cm ? IVS:LVPW ratio (2D) 1 ?ratio ? RWT (2D) ?0.3 ?ratio ? RWT PW (2D) ? 0.3 ?ratio ? LVIDd (2D) ?4.7 ?cm ? LVIDs (2D) ?3.7 ?cm ? LVIDd (2D) index ?2.6 ?cm/m2 ? LVIDs (2D) index ?2.1 ?cm/m2 ? LV FS (2D) ?22 ? % ? EF Teichholz (2D) ?? 44 ? % ? Ao root diameter (2D3.3 ?cm (2.1 - 3.6) ? Volumes/Mass ?Value ?Unit s (Range) ? LA Area 4 CH ?21 ? cm2 (<21) ? RA AREA 4CH ? 20 ? cm2 ? LA ESV BP (MOD) inde38.6 ? ml/m2 ? LV mass (2D) ?101.8 ?g ? LV mass (2D) index ??56.9 ? g/m2 ? Diastolic/Systolic Function ?Value ?Unit s (Range) ? MV E-wave Vmax ?0.6 ?m/sec ? MV deceleration smmn636 ?msec ? MV A-wave Vmax ?0.5 ?m/sec ? MV E:A ratio ?1 ?ratio ? LV septal e' Vmax ?? 0.1 ?m/sec ? LV lateral e' Vmax ??0.1 ?m/sec ? LV E:e' septal ratio6.2 ?ratio ? LV E:e' lateral rati5.3 ?ratio ? Tricuspid Valve ?Value ?Unit s (Range) ? TAPSE ? 2.1 ?cm ? RV lateral s' Vmax ??0.1 ?m/sec ? Wall Motion: Segment Name ?Rest ? Peak ? Base-Anteroseptal ?? Normal ? Normal ? Base-Anterior ? Normal ? Normal ? Base-Anterolateral ??Normal ? Normal ? Base-Posterolateral Normal ? N ormal ? Base-Inferior ? Normal ? Normal ? Base-Inferoseptal ?? Normal ? Normal ? Mid-Anteroseptal ?Normal ? Normal ? Mid-Anterior ?Normal ? Normal ? Mid-Anterolateral ?? Normal ? Normal ? Mid-Posterolateral ??Normal ? Normal ? Mid-Inferior ?Normal ? Normal ? Mid-Inferoseptal ?Normal ? Normal ? [place]-Septal ? Normal ? Normal ? [place]-Anterior ? Normal ? Normal ? [place]-Lateral ?Normal ? Normal ? [place]-Inferior ? Normal ? Normal ? [place]-Tip ?Normal ? Normal ? This report has been electronically sign ed by: _ Axel Ang MD ? 02/16/2018 14:4 8:00 Images reviewed and interpretation ana taylor [facility] Cardiac Ultrasound Laboratory Procedure Note Department, Radiology - 02/16/2018 2:48 PM EST Procedure: Stress Echocardiogram Patient: LYNNE GANDHI( Age): 1945(72y) Med Rec#: [id number] Sex: M Site Loc: [facility] [place] Ht / Wt: 177.8(cm)/63.5( Pt. Loc: Echo Lab BSA: 1.79 Study Date: 02/16/2018 Pt. Type: Tape: Referring: Angela Xiong Reading: Axel Ang ([id number]) Outsole Molder: Javier Willis Associate Scientist: Tate Castañeda Diagnosis: *Shortness of breath (R06.02) Stage BP HR Rest 102/70 68 Peak 150/74 148 Recovery 118/68 63 SUMMARY: 1. CONCLUSION: There is no ekg or echoca rdiographic evidence of ischemia at this level of stress. 2. REST: Left ventricular wall thickness , chamber size and global systolic function are normal. The visual ly estimated left ventricular ejection fraction is 55%. The right vent ricle is mildly dilated. The global right ventricular systolic functi on is normal. The pulmonary artery systolic pressure cannot be estim ated due to inadequate tricuspid regurgitation jet. There is normal bi-at rial size. There is no hemodynamically significant valvular dis ease. There is an atrial septal aneurysm with possible patent foramen ov smiley. 3. STRESS: On a Todd protocol the myesha ent exercised for 8 minutes 9 seconds, achieving 10.1 METS of exertion , a peak heart rate of 151 bpm (101% maximum predicted), and peak blood pressure of 150/74mmHg, stopping secondary to shortness of breat h. The patient did not express feelings of chest discomfort. The restin g ekg demonstrated sinus bradycardia with PVC's. With exercise s tress there were occasional premature atrial and premature ventricul ar contractions. There were no diagnostic ST shifts with exercise stres s. There were frequent PVC's early in recovery. All left ventricular wall segments augment their systolic function with exercise stress. Findings Rest: Study Quality: Adequate Left Ventricle: The left ventricular chamber size is normal. Left ventricular wall thickness is n ormal. There is normal global left ventricu lar systolic function. Ejection fraction is estimated to be 55%. There are no left ventricular segmen nomi wall motion abnormalities. Doppler assessment is consistent wit h normal left sided filling pressure. Left Atrium: The left atrium is mild ly dilated. Volume Index= 38.6ml/m2. There is a possible patent foramen o alba demonstrated by color Doppler. There is evidence of an inter-atrial septal aneurysm. Right Ventricle: The right ventricle is mildly dilated. Right ventricular global systolic fu nction is normal. Pulmonary artery hypertension could not be assessed due to inadequate tricuspid regurgitation jet. Right Atrium: The right atrium is mi ldly dilated. Aortic Valve: The aortic valve is pr obably tricuspid. Systolic excursion of the aortic malina ve is normal. There is no evidence of aortic valve stenosis. There is no evidence of aortic regur gitation. Mitral Valve: The mitral valve leafl ets appear normal. There is trace mitral regurgitation present. Tricuspid Valve: The tricuspid valve is probably normal. There is trace tricuspid regurgitati on present. Pericardium: The pericardium appears normal and there is no evidence of a pericardial effusion. Aorta: The aortic root is normal in size. The ascending aorta was not well vis ualized. Stress: EKG: normal sinus rhythm. EKG: Premature ventricular contracti ons noted. The patient's oxygen saturation was 100%. The patient is taking aspirin. Misc: Stress echo, color Doppler and ECG interpretation performed. Findings Peak: Predicted Values:The patient achieved a maximum heart rate of 148 which is 99% of the maximum predicted heart ra te (149 beats/min). The target heart rate was achieved. Left Ventricle: Global left ventricu lar systolic function appears hyperdynamic. There are no left ventricular segmen nomi wall motion abnormalities. Stress: Patient followed a Todd pro tocol. The patient exercised into stage 3. The total exercise duration was:8:09 min. The study was terminated because of fatigue. The study was terminated because of dyspnea.8/10 SOB by peak exercise. The patient did not express feelings of chest discomfort. The patient experienced shortness of breath. The blood pressure response was norm al. Exercise capacity was excellent. The patient achieved a level of 10 M ETS. There were frequent ventricular rosa ature beats. most frequent in early recovery. There were no significant ST segment changes. This was a negative electrocardiogra phic stress test for ischemia. This was a negative echocardiographi c stress test. The patient's oxygen saturation was 99%. Chambers 2D Value Units (Range) RVIDd Base 4.2 cm IVSd (2D) 0.7 cm LVPWd (2D) 0.7 cm IVS:LVPW ratio (2D) 1 ratio RWT (2D) 0.3 ratio RWT PW (2D) 0.3 ratio LVIDd (2D) 4.7 cm LVIDs (2D) 3.7 cm LVIDd (2D) index 2.6 cm/m2 LVIDs (2D) index 2.1 cm/m2 LV FS (2D) 22 % EF Teichholz (2D) 44 % Ao root diameter (2D3.3 cm (2 .1 - 3.6) Volumes/Mass Value Units (Range) LA Area 4 CH 21 cm2 ( <21) RA AREA 4CH 20 cm2 LA ESV BP (MOD) inde38.6 ml/m2 LV mass (2D) 101.8 g LV mass (2D) index 56.9 g/m2 Diastolic/Systolic Function Value Units (Range) MV E-wave Vmax 0.6 m/sec MV deceleration [id number] msec MV A-wave Vmax 0.5 m/sec MV E:A ratio 1 ratio LV septal e' Vmax 0.1 m/sec LV lateral e' Vmax 0.1 m/sec LV E:e' septal ratio6.2 ratio LV E:e' lateral rati5.3 ratio Tricuspid Valve Value Units (Range) TAPSE 2.1 cm RV lateral s' Vmax 0.1 m/sec Wall Motion: Segment Name Rest Peak Base-Anteroseptal Normal Erma l Base-Anterior Normal Erma l Base-Anterolateral Normal Erma l Base-Posterolateral Normal Erma l Base-Inferior Normal Erma l Base-Inferoseptal Normal Erma l Mid-Anteroseptal Normal Erma l Mid-Anterior Normal Erma l Mid-Anterolateral Normal Erma l Mid-Posterolateral Normal Erma l Mid-Inferior Normal Erma l Mid-Inferoseptal Normal Erma l [place]-Septal Normal Erma l [place]-Anterior Normal Erma l [place]-Lateral Normal Erma l [place]-Inferior Normal Erma l [place]-Tip Normal Erma l This report has been electronically sign ed by: _ Axel Ang MD 02/16/2018 14:48: 00 Images reviewed and interpretation ana taylor [facility] Cardiac Ultrasound Laboratory Performing Organization Address City/State/ZIP Code Phon e Number HEARTLAB SYSTEM documented in this encounter Visit Diagnoses Diagnosis SOB (shortness of breath) Shortness of breath documented in this encounter
--- OUTSIDE RECORDS SUMMARY | 2020-07-20 13:14 | XMS_ITS | Encounter Summary ---
:1945 Author Organization [facility] [place] [address] Care Team Providers Name Role Phone MD Lopez Primary Care Provider Encounter Details Date Type Department Care Team Description 07/03/2018 Abstract Mireille Love Conversion Apd Conversion, Flowsheet Results Provider, [address] [place] [address] Social History Tobacco Use Types Packs/Day Years Used Date Former Smoker Quit: 04/14/18 70 Smokeless Tobacco: Never Used Alcohol Use Drinks/Week oz/Week Comments Yes 7 Cans of beer 7.0 Sex Assigned at Date Recorded Not on file documented as of this encounter Last Filed Vital Signs Vital Sign Reading Time Taken Comments Blood Pressure 100/50 07/03/2018 11:46 Sourced from AP D AM EDT Conversion Pulse - - Temperature - - Respiratory Rate - - Oxygen Saturation - - Inhaled Oxygen - - Concentration Weight 62.2 kg (137 lb 2 07/03/2018 11:46 Sourced from APD oz) AM EDT Conversion Height 179 cm (5' 10.47) 07/03/2018 11:46 Sourced from APD AM EDT Conversion Body Mass Index 19.41 07/03/2018 11:46 AM EDT documented in this encounter Plan of Treatment Not on filedocumented as of this encounter Visit Diagnoses Not on filedocumented in this encounter
--- OUTSIDE RECORDS SUMMARY | 2020-07-20 13:14 | XMS_ITS | Encounter Summary ---
:1945 Author Organization [facility] [place] [place] [address] Care Team Providers Name Role Phone MD Lopez Primary Care Provider Encounter Details Date Type Department Care Team Description 05/06/2017 Abstract Mireille Love Conversion Apd Conversion, Flowsheet Results Provider, [address] [place] [address] Social History Tobacco Use Types Packs/Day Years Used Date Former Smoker Alcohol Use Drinks/Week oz/Week Comments Yes 7 Cans of beer 7.0 Sex Assigned at Date Recorded Not on file documented as of this encounter Last Filed Vital Signs Vital Sign Reading Time Taken Comments Blood Pressure 118/60 05/06/2017 1:47 Sourced from AP D PM EST Conversion Pulse - - Temperature - - Respiratory Rate - - Oxygen Saturation - - Inhaled Oxygen - - Concentration Weight 63 kg (138 lb 14.2 05/06/2017 1:47 Sourced from APD oz) PM EST Conversion Height 179 cm (5' 10.47) 05/06/2017 1:47 Sourced from APD PM EST Conversion Body Mass Index 19.66 05/06/2017 1:47 PM EST documented in this encounter Plan of Treatment Not on filedocumented as of this encounter Visit Diagnoses Not on filedocumented in this encounter
--- OUTSIDE RECORDS SUMMARY | 2020-07-20 13:14 | XMS_ITS | Encounter Summary ---
:1945 Author Organization [facility] Address [address] [place] [address] Care Team Providers Name Role Phone MD Lopez Primary Care Provider Reason for Visit Reason Comments Medication Refill Encounter Details Date Type Department Care Team Description 04/05/2019 Refill Primary Care at [facility] e Maddie Alvarado MD [address] [place] [address] PRIMARY CARE [phone] [place], [place] [address] [phone] Social History Tobacco Use Types Packs/Day Years Used Date Former Smoker Quit: 04/14/18 70 Smokeless Tobacco: Never Used Alcohol Use Drinks/Week oz/Week Comments Yes 7 Cans of beer 7.0 Sex Assigned at Date Recorded Not on file documented as of this encounter Miscellaneous Notes Telephone Encounter - Sydni Israel CMA - 04/05/2019 11:52 AM EST TAMSULOSIN 0.4MG CAP: Last Prescription Fill Date: 03/03/19 Number Dispensed and Refills: 30/ Last Related Office Visit: 05/09/17 Upcoming Appointment: 04/21/2019 No flowsheet data found. Lab Results Component [...]
--- OUTSIDE RECORDS SUMMARY | 2020-07-20 13:14 | XMS_ITS | Encounter Summary ---
:1945 Author Organization [facility] [place] [address] Care Team Providers Name Role Phone Katherine Marroquin MD Primary Care Provider Encounter Details Date Type Department Care Team Description 01/23/2018 External Results Laboratory at [facility] Day [address] [place] [address] [place] [address] [phone] Social History Tobacco Use Types Packs/Day Years Used Date Former Smoker Smokeless Tobacco: Never Used Alcohol Use Drinks/Week oz/Week Comments Yes 7 Cans of beer 7.0 Sex Assigned at Date Recorded Not on file documented as of this encounter Plan of Treatment Not on filedocumented as of this encounter Procedures Procedure Name Priority Date/Time Associated Comments Diagnosis HEMOGRAM Routine 01/23/2018 1:00 Results for this PM EDT procedure are i n the results section. TSH Routine 01/23/2018 1:00 Results for this PM EDT procedure are i n the results section. VITAMIN B12 Routine 01/23/2018 1:00 Results for this PM EDT procedure are i n the results section. COMPREHENSIVE Routine 01/23/2018 1:00 Results fo r this METABOLIC PANEL PM EDT procedure ar e in (NON-FASTING) the results section. documented in this encounter Results Vitamin B12 (01/23/2018 1:00 PM EDT) Vitamin B-12 401 (External Lab) 232 - 1245 [facility] Comment: pg/mL HOSPITAL Performed at: ??RN - [facility] [address] ??[id number] Adjusto Writer Operator: Zenaida Hampton MD, Phone: ??[phone] Specimen Performing Organization Address City/[facility] Phon e Number [facility] [address] [address] 6 TSH (01/23/2018 1:00 PM EDT) Pathologist Sig nature TSH 1.471 (External 0.358 - 3.740 [facility] Lab) uIU/mL HOSPITAL Specimen Performing Organization Address [facility] Phon e Number [facility] [address] [address] Comprehensive metabolic panel (non-fasting) (01/23/2018 1:00 PM EDT) Sodium 141 (External Lab) 135 - 145 [facility] mmol/L HOSPITAL Potassium 4.7 (External Lab) 3.5 - 5.1 [facility] mmol/L HOSPITAL Chloride 104 (External Lab) 98 - 107 [facility] mmol/L HOSPITAL CO2 29 (External Lab) 21 - 32 [facility] mmol/L HOSPITAL Anion Gap 12.7 (External Lab) 9 - 16 mmol/L [facility] Osmolality 274 (External Lab) 261 - 280 [facility] mosm/kg HOSPITAL Glucose Lvl 93 (External Lab) 74 - 106 [facility] mg/dL HOSPITAL BUN 18 (External Lab) 7 - 18 mg/dL [facility] Creatinine 0.82 (External Lab) 0.70 - 1.30 [facility] mg/dL HOSPITAL BUN/Cre Ratio 22.0 (External Lab) 7.0 - 25.0 [facility] Estimated GFR > 60 (External Lab) mL/min [facility] Comment: HOSPITAL Estimated GFR is to assist you in evaluating your myesha ent and optimizing drug dosing. Per NKDBP, they classify normal renal function as an y GFR > 60 ml/min/1.72m2; chronic kidney disease when GFR <6 0, and renal failure when GFR <15. ??This calculation may not be valid for patients with atypical muscle mass (very juany n or obese), acute renal failure, and in patients with diab etic kidney disease. Calcium 9.3 (External Lab) 8.5 - 10.1 [facility] mg/dL HOSPITAL Total Protein 6.8 (External Lab) 6.4 - 8.2 [facility] g/dL HOSPITAL Albumin 3.8 (External Lab) 3.4 - 5.0 [facility] g/dL HOSPITAL Globulin 3.0 (External Lab) 2.7 - 4.5 [facility] g/dL HOSPITAL Alb/Globulin Ratio 1.3 (External Lab) 0.8 - 1.4 [facility] Alk Phos 52 (External Lab) 50 - 136 U/L [facility] ALT 19 (External Lab) 16 - 63 U/L [facility] AST 15 (External Lab) 15 - 37 U/L [facility] Total Bilirubin 0.4 (External Lab) 0.2 - 1.0 [facility] mg/dL HOSPITAL Specimen Performing Organization Address City/State/ZIP Code Phon e Number [facility] [address] [place] [address] Hemogram (01/23/2018 1:00 PM EDT) WBC 5.9 (External 4.0 - 10.0 [facility] Lab) 10^3/uL HOSPITAL RBC 4.08 (ExtL) 4.63 - 6.08 [facility] 10^6/uL HOSPITAL Hemoglobin 12.4 (ExtL) 13.7 - 17.5 [facility] g/dL HOSPITAL Hematocrit 38.1 (ExtL) 40.0 - 51.0 % [facility] MCV 93.4 (ExtH) 79.0 - 92.0 fL [facility] MCH 30.4 (External 25.6 - 32.2 pg [facility]) [facility] MCHC 32.5 (External 32.0 - 36.5 [place] [facility]) g/dL [facility] RDWCV 13.1 (External 10.9 - 14.4 % [place] [facility]) [facility] RDWSD 44 (External 35 - 46 fL [facility] Lab) HOSPITAL Platelets 334 (External 145 - 370 [place] [facility] Lab) 10^3/uL HOSPITAL MPV 9.9 (External 9.0 - 12.0 fL [facility] Lab) HOSPITAL Neutrophils % 67.9 (External 34.0 - 71.0 % [facility] Lab) HOSPITAL Lymphocytes % 22.8 (External 19.0 - 53.0 % [facility] Lab) HOSPITAL Monocytes % 6.8 (External 4.0 - 13.0 % [place] [facility] Lab) HOSPITAL Eosinophils % 2.0 (External 0.0 - 7.0 % [place] [facility] Lab) HOSPITAL Basophils % 0.5 (External 0.0 - 2.0 % [place] [facility] Lab) HOSPITAL Neutr Abs (ANC) 4.0 (External 1 - 6 ABS # [facility] Lab) HOSPITAL Lymphocytes Abs 1.4 (External 1.0 - 3.6 ABS # [place] [facility] Lab) HOSPITAL Monocyte Abs 0.4 (External 0.2 - 1.0 ABS # [place] [facility] Lab) HOSPITAL Eosinophils Abs 0.1 (External 0.0 - 0.5 ABS # [place] [facility] Lab) HOSPITAL Basophils Abs 0.0 (External 0.0 - 0.2 ABS # [place] [facility] Lab) HOSPITAL Specimen Performing Organization Address City/State/ZIP Code Phon e Number [facility] [address] [place], [place] [address] documented in this encounter Visit Diagnoses Not on filedocumented in this encounter
--- OUTSIDE RECORDS SUMMARY | 2020-07-20 13:14 | XMS_ITS | Encounter Summary ---
:1945 Author Organization [facility] [place] [address] Care Team Providers Name Role Phone MD Lopez Primary Care Provider Encounter Details Date Type Department Care Team Description 11/27/2018 Hospital Encounter Hematology and Anemia, unspecified Oncology at [facility] [place] [place] [address] Social History Tobacco Use Types Packs/Day Years [...] daily. aspirin 325 mg tablet 0 01/02/2010 UNABLE TO FIND Med Name: Tumeric 0 11/2019 blue-green algae by Primavistac.(Non-Drug; 0 04/21/2019 (SPIRULINA MISC) Combo Route) route. KELP ORAL Take by mouth. 0 0 tamsulosin (FLOMAX) 0.4 Take 0.4 mg by mouth 0 04/05/2019 mg Capsule, Sust. Release daily. 24 hr PYGEUM AFRICANUM BARK, by Misc.(Non-Drug; 0 04/21/2019 [facility] Combo Route) route. Reported on 08/15/2016 Miscellaneous Medical by [facility].(Non-Drug; 0 04/21/2019 Supply [facility] Combo Route) route. Oral flower pollen for BPH zinc sulfate (ZINCATE) Take 220 mg by [...] Priority Date/Time Associated Comments Diagnosis HEMOGRAM Routine 11/27/2018 1:52 Anemia, unspecified Resu lts for this PM EDT type procedure are i n the results section. DIFFERENTIAL, Routine 11/27/2018 1:52 Anemia, unspecified Res ults for this AUTOMATED PM EDT type procedure are i n the results section. CBC (WITH DIFF) Routine 11/27/2018 1:52 Anemia, unspecified PM EDT type COMPREHENSIVE Routine 11/27/2018 1:52 Anemia, unspecified Res ults for this METABOLIC PANEL PM EDT type procedure ar e in (NON-FASTING) the results section. documented in this encounter Results Differential, Automated (11/27/2018 1:52 PM EDT) Neutrophils % 70.8 % [facility] Neutr Abs (ANC) 5.58 1 - 6 [facility] x[facility](3[facility] LABORATORY Lymphocytes % 18.9 % [facility] Lymphocytes Abs 1.5 0.9 - 3.2 [facility] x[facility](3[facility] LABORATORY Monocytes % 7.2 % [facility] Monocyte Abs 0.6 0.3 - 0.9 [facility] x10(3)/[facility] LABORATORY Eosinophils % 2.3 % [facility] Eosinophils Abs 0.2 0.0 - 0.4 [facility] x10(3)/[facility] LABORATORY Basophils % 0.5 % [facility] Basophils Abs 0.0 0.0 - 0.1 [facility] x10(3)/[facility] LABORATORY Immature Gran % 0.30 % [facility] Comment: [facility] Immature granulocytes(IG's)percentage and absolu te count will include LABORATORY metamyelocytes, myelocytes, and promyelo cytes. Blood smears from CBCs yielding IG's will be scanned manually for concor dance. If this scan disagrees with the automated IG or if promyelocytes are noted, a manual d ifferential will be performed. Yamini Gran Abs 0.02 0.00 - 0.04 [place] [address](3)/[facility] LABORATORY Specimen Blood specimen (specimen) Resulting Agency Comment Spec In Lab Performing Organization Address City/State/[facility] [place] [address] Hemogram (11/27/2018 1:52 PM EDT) Pathologist Sig nature WBC 7.9 4.0 - 9.5 [facility] x10(3)/[facility] LABORATORY RBC 4.35 (L) 4.58 - 5.54 [facility] x10(6)/[facility] LABORATORY Hemoglobin 13.2 (L) 13.7 - 16.5 gm/dL [facility] Hematocrit 41.0 40.5 - 48.5 % [facility] MCV 94.3 (H) 82.9 - 93.1 fL [facility] MCH 30.3 27.5 - 32.1 pg [facility] MCHC 32.2 32.0 - 35.7 gm/dL [facility] Platelets 328 145 - 357 [place] [address](3)[facility] LABORATORY RDWSD 45.4 (H) 36.0 - 45.0 fL [facility] RDWCV 13.2 11.4 - 13.8 % [facility] MPV 9.5 7.6 - 12.9 fL [facility] nRBC % Auto 0.0 % [facility] nRBC Abs Auto 0.000 0.000 - 0.000 [facility] x10(3)/[facility] LABORATORY Specimen Blood specimen (specimen) Resulting Agency Comment Spec In Lab Performing Organization Address City/State/[place] [address] Comprehensive metabolic panel (non-fasting) (11/27/2018 1:52 PM EDT) Glucose Lvl 115Comment: Diabetes: 65 - 199 [facility] >=200 mg/dL plus mg/dL [facility] symptoms LABORATORY BUN 19 10 - 20 [facility] mg/dL [facility]ORY Creatinine 0.85 0.80 - 1.50 [facility] mg/dL [facility] Sodium 138 135 - 145 [facility] mmol/L [facility] Potassium 4.6 3.5 - 5.0 [facility] Comment: mmol/L [facility] Please note: ??Patients with WBC >100,000 may begum ve falsely elevated Potassium LABORATORY levels. ??For accurate Potassium quantification in the se patients send serum separator tube (gold top) fo r subsequent determinations. ??Contact the Clinical Chemistry Laboratory if there are any questions. Chloride 101 98 - 107 [facility] mmol/L [facility]ORY CO2 30 22 - 31 [facility] LIZ mmol/L [facility] Anion Gap 7 5 - 15 [facility] mmol/L [facility] Calcium 9.1 8.5 - 10.5 [facility] mg/dL [facility] Total Protein 6.7 6.1 - 8.0 [facility] gm/dL [facility] Albumin 4.2 3.2 - 5.2 [facility] gm/dL [facility] AST 11 0 - 39 [facility] unit/L [facility] ALT 14 0 - 55 [facility] unit/L [facility] LABOR[facility]ORY Alk Phos 42 40 - 130 [facility] LIZ unit/L [facility]ORATORY Total Bilirubin 0.4 0.2 - 1.3 [facility] mg/dL [facility] LABORATORY Estimated GFR 87 >=60 [facility] Comment: mL/min/1.73 [facility] The eGFR was calculated using the CKD-EPI equati on. As with all creatinine m?? LABORATORY based estimates of kidney function, eGFR values calcul ated with the CKD-EPI equation are not accurate in patients with acute kidne y failure, extremes of body mass or the acutely ill. [email or web address]/[facility] eGFR 101 >=60 [facility] [place] Comment: mL/min/1.73 [facility] The eGFR was calculated using the CKD-EPI equati on. As with all creatinine m?? LABORATORY based estimates of kidney function, eGFR values calcul ated with the CKD-EPI equation are not accurate in patients with acute kidne y failure, extremes of body mass or the acutely ill. [email or web address]/[facility] Specimen Blood specimen (specimen) Resulting Agency Comment Spec In Lab Performing Organization Address City/State/ZIP Code Phon e Number [facility] [place] [address] documented in this encounter Visit Diagnoses Diagnosis Anemia, unspecified type documented in this encounter
--- OUTSIDE RECORDS SUMMARY | 2020-07-20 13:14 | XMS_ITS | Encounter Summary ---
:1945 Author Organization [facility] [place] [address] Care Team Providers Name Role Phone MD Lopez Primary Care Provider Encounter Details Date Type Department Care Team Description 04/21/2019 Hospital Encounter Laboratory at [facility] for colon [place] [facility] [address] [place] [address] Social History Tobacco Use Types Packs/Day Years Used Date Former Smoker Quit: 04/14/18 70 Smokeless Tobacco: Never Used Alcohol Use Drinks/Week oz/Week Comments Yes 7 Cans of beer 7.0 Sex Assigned at Date Recorded Not on file documented as of this encounter Medications at Time of Discharge Medication Sig Dispensed Refills Start Date End Date magnesium oxide 200 mg Take by mouth. 0 magnesium Tablet triamcinolone (KENALOG) Apply 1 each 30 g 0 04/21/2019 0.1 % Ointment topically 2 times daily. Ginkgo Biloba 60 mg Take 1 capsule by 0 Capsule mouth daily. ibuprofen (ADVIL;MOTRIN) Take 400 mg by mouth 0 200 mg Tablet 2 times daily as needed. VITAMIN K2 ORAL Take by mouth. 0 cholecalciferol, Vitamin Take by mouth. 0 D3, (VITAMIN D) 1,000 unit Capsule fish oil-omega-3 fatty Take 2 g by mouth 0 acids 1,000 mg Capsule daily. aspirin 325 mg tablet 0 01/02/2010 tamsulosin ER (FLOMAX) Take 1 capsule by 30 capsule 0 201805/05/2019 0.4 mg Capsule mouth daily. DO NOT CRUSH OR OPEN documented as of this encounter Plan of Treatment Not on filedocumented as of this encounter Procedures Procedure Name Priority Date/Time Associated Comments Diagnosis HC IFOB (FIT) FECAL Routine 04/22/2019 12:00 Screening for Res ults for this BLOOD HEMOGLOBIN; 1-3 AM EST colon cancer proced ure are in DETERMINATIONS the results section. documented in this encounter Results Fecal Occult Blood, Immunoassay (04/22/2019 12:00 AM EST) Pathologist Sig nature Fecal Occult Blood, Negative Negative [facility] Immunoassay [facility] Specimen Stool specimen (specimen) Resulting Agency Comment Spec In Lab / APD Performing Organization Address City/State/[place] [address] documented in this encounter Visit Diagnoses Diagnosis Screening for colon cancer Special screening for malignant neoplasm s, colon documented in this encounter
--- OUTSIDE RECORDS SUMMARY | 2020-07-20 13:14 | XMS_ITS | Encounter Summary ---
:1945 Author Organization [facility] [place] [address] Care Team Providers Name Role Phone MD Lopez Primary Care Provider Encounter Details Date Type Department Care Team Description 01/23/2018 Abstract [facility] Conversion Apd Conversion, Flowsheet Results Provider, [address] [place] [address] Social History Tobacco Use Types Packs/Day Years Used Date Former Smoker Smokeless Tobacco: Never Used Alcohol Use Drinks/Week oz/Week Comments Yes 7 Cans of beer 7.0 Sex Assigned at Date Recorded Not on file documented as of this encounter Last Filed Vital Signs Vital Sign Reading Time Taken Comments Blood Pressure 102/60 01/23/2018 11:47 Sourced from AP D AM EDT Conversion Pulse - - Temperature - - Respiratory Rate - - Oxygen Saturation - - Inhaled Oxygen - - Concentration Weight 62 kg (136 lb 11 oz) 01/23/2018 11:47 Sourced fr om APD AM EDT Conversion Height 179 cm (5' 10.47) 01/23/2018 11:47 Sourced from APD AM EDT Conversion Body Mass Index 19.35 01/23/2018 11:47 AM EDT documented in this encounter Plan of Treatment Not on filedocumented as of this encounter Visit Diagnoses Not on filedocumented in this encounter
--- OUTSIDE RECORDS SUMMARY | 2020-07-20 13:14 | XMS_ITS | Encounter Summary ---
:1945 Author Organization [facility] [place] [address] Care Team Providers Name Role Phone Katherine Marroquin MD Primary Care Provider Reason for Visit Consultation (Routine) Status Reason Specialty Diagnoses / Referred By Referred To Procedures Contact Contact Closed Consult, Test & Cardiology Diagnoses INCREASING SOB WITH NEGATIVE STRESS TESTING AND ATRIAL SEPTAL ANEURYSM Maddie Marroquin [facility] 4a Foreign Murphy MD [facility] [address] [facility] [address] [place] [phone] Phone: Encounter Details Date Type Department Care Team Description 04/17/2018 Office Visit Cardiology at [facility] Eva Rizzo MD [facility] [place] [address] SOB (shortness of breath); [facility] Elma Marte DO [facility] [place] [address] [place] [address] Social History Tobacco Use Types Packs/Day Years Used Date Former Smoker Smokeless Tobacco: Never Used Alcohol Use Drinks/Week oz/Week Comments Yes 7 Cans of beer 7.0 Sex Assigned at Date Recorded Not on file documented as of this encounter Last Filed Vital Signs Vital Sign Reading Time Taken Comments Blood Pressure 112/59 04/17/2018 10:03 AM EST Pulse 59 04/17/2018 10:03 AM EST Temperature - - Respiratory Rate - - Oxygen Saturation 100% 04/17/2018 10:03 AM EST Inhaled Oxygen Concentration - - Weight 63.7 kg (140 lb 8 oz) 04/17/2018 10:03 AM EST Height 177.8 cm (5' 10) 04/17/2018 10:03 AM EST Body Mass Index 20.16 04/17/2018 10:03 AM EST documented in this encounter Progress Notes Elma Marte, DO - 04/17/2018 10:00 AM EST Images from the original note were not included. Reason for Consultation: Shortness of Breath and Dyspnea on exertion Referring Provider: Maddie Marroquin MD [address] [facility] [place] [address] ?? HPI: Sunil Rg is a 72 y.o. male with no significant medical history who is referred to cardiology by his PCP for question of increasing shortness of breath with negative stress testing and atrial septal aneurysm. Patient states that over the past 1-2 years he has noticed some shortness of breath with exertion. He can't keep up with his grandchildren as well while hiking (hikes like [employer]). In this setting, his PCP has pursued multiple studies including PFTs which were completed 03/13/2018 and were normal. In addition, he had a stress echocardiogram which was completed on 02/16/2018. This showed no EKG or echocardiographic evidence of ischemia. He did achieve his target target heart rate. Notably he had good exercise tolerance. He exercised for 8 minutes achieving 10.1 METS. The baseline TTE also noted possible patent foramen ovale and evidence of an intra-atrial septal aneurysm. Baseline TTE was otherwise unremarkable. Patient notes that he wants to make sure the intra-atrial septal aneurysm and PFO are not anything that he should be worried about. No history of TIA or stroke. The shortness of breath only bothers himwith heavy exertion. Never experiences chest pain or pressure. No lightheadedness or history of syncope. He still exercises quite frequently and feels well while doing so. For example - yesterday he cross country skied twice and snow shoed once. He went back while snow shoeing to add more weights to his backpack. He felt well while doing so. Skied a few miles each time he was out. No shortness of breath. ROS: CONSTITUTIONAL: No weight loss, fever, chills, weakness or fatigue. ?? HEENT: Eyes: No visual loss, blurred vision, double vision or scleral iscterus. No sinus tenderness or palpable thyromegaly. SKIN: No rashes. ?? CARDIOVASCULAR: No chest pain, chest pressure or chest discomfort. No palpitations No edema. No orthopnea or PND. No syncope RESPIRATORY: No cough or sputum. No hemoptysis; some shortness of breath with heavy exertion GASTROINTESTINAL: No anorexia, nausea, vomiting or diarrhea. No abdominal pain. No BRBPR or melena ?? GENITOURINARY: No hematuria or dysuria NEUROLOGICAL: No headache, dizziness, syncope, paralysis, ataxia, numbness or tingling in the extremities. No change in bowel or bladder control. ?? MUSCULOSKELETAL: No muscle, back pain, joint pain or stiffness. ?? HEMATOLOGIC: No anemia, bleeding or bruising. ?? LYMPHATICS: No enlarged nodes. No history of splenectomy. ?? PSYCHIATRIC: No history of depression or anxiety. ?? ENDOCRINOLOGIC: No reports of sweating, cold or heat intolerance. No polyuria or polydipsia. ?? ALLERGIES: No history of asthma, hives, eczema or rhinitis. Past Medical History: BPH Past Surgical History: Prior face surgeries Tonsillectomy Social History: 1 beer per day Quit smoking at 23, smoked 1 pack per day for 7 years Worked at [employer], no retired Family History: Father had aneurysm at 35 years old and Brothers have HLD ALLERGIES: Allergies Allergen Reactions ??? Ciprofloxacin Rash ?? Pertinent Medications - ASA 325 mg daily - flomax . PHYSICAL EXAM: Most Recent Vitals: 04/17/18 1003 BP: 112/59 Pulse: 59 SpO2: 100% Constitutional: In general, alert and oriented X 3, well appearing Eyes: No scleral icterus or pale conjunctiva; no corneal arcus Respiratory: Clear to auscultation bilaterally with good air entry bilaterally GI: No abdominal pain; + bowel sounds; no rigidity or guarding Cardiovascular: The heart rate is regular, bradycardic. S1 and S2 are normal and unobscured. There are no audible murmurs. MSK: No joint deformity; No evidence of tendon xanthomas Skin: No visible rashes or bruises Neuro: Non-focal. Moves all extremities without limitation. CN nerves not examined. Psych: Mood appropriate Extremity: RLE:No LE edema, LLE: No LE edema, RUE: 2+ radial pulse, LUE: 2+ radial pulse ?? DIAGNOSTIC TESTS: ?? Echo stress (treadmill) 02/16/2018 SUMMARY: 1. CONCLUSION: There is no ekg or echocardiographic evidence of ischemia at this level of stress. 2. REST: Left ventricular wall thickness, chamber size and global systolic function are normal. The visually estimated left ventricular ejection fraction is 55%. The right ventricle is mildly dilated. The global right ventricular systolic function is normal. The pulmonary artery systolic pressure cannot be estimated due to inadequate tricuspid regurgitation jet. There is normal bi- atrial size. There is no hemodynamically significant valvular disease. There is an atrial septal aneurysm with possible patent foramen ovale. 3. STRESS: On a Todd protocol the patient exercised for 8 minutes 9 seconds, achieving 10.1 METS of exertion, a peak heart rate of 151 bpm (101% maximum predicted), and peak blood pressure of 150/74mmHg, stopping secondary to shortness of breath. The patient did not express feelings of chest discomfort. The resting ekg demonstrated sinus bradycardia with PVC's. With exercise stress there were occasional premature atrial and premature ventricular contractions. There were no diagnostic ST shifts with exercise stress. There were frequent PVC's early in recovery. All left ventricular wall segments augment their systolic function with exercise stress. EKG 04/17/2018 Sinus bradycardia, no concerning ST segment or T wave changes A/P: Sunil Rg is a healthy 72 y.o. male with no significant medical history who presents as referred by his PCP for shortness of breath. Notably, the patient is in excellent shape and his shortness of breath occurs with heavy exertion. He is still quite active overall, and just yesterday cross country skied twice and also went snow shoeing without any symptoms. In addition, he had a negative stress echo in February of 2018. Overall, his symptoms are not concerning for cardiac ischemia. Hehas great exercise tolerance and was encouraged to stay active, as he is. No further cardiac workup indicated. Also provided reassurance about the PFO and intra-atrial septum which were noted incidentally on his baseline TTE from his stress echo. Follow up PRN. Elma Marte DO [employer] ATTENDING ATTESTATION: I met with the patient today and independently confirmed the history and reviewed the available testresults. I have discussed the plan with the patient and have personally edited the document to reflect the plan of care. ?? Eva Rizzo MD [facility] Interventional Cardiology Pager [phone] documented in this encounter Plan of Treatment Not on filedocumented as of this encounter Procedures Procedure Name Priority Date/Time Associated Diagnosis Comme nts EKG 12-LEAD Routine 04/17/2018 10:54 AM SOB (shortness of Res ults for this EST breath) procedure are in the Atrial septal results sectio n. aneurysm documented in this encounter Results EKG 12-LEAD (04/17/2018 10:54 AM EST) Ventricular rate 54 BPM MUSE SYSTEM Atrial Rate 54 BPM MUSE SYSTEM P-R Interval 168 ms MUSE SYSTEM QRS Duration 86 ms MUSE SYSTEM Q-T Interval 444 ms MUSE SYSTEM QTC Calculated (Bezet) 421 ms MUSE SYSTEM Calculated P [place] 74 degrees MUSE SYSTEM Calculated R [place] 61 degrees MUSE SYSTEM Calculated T [place] 69 degrees MUSE SYSTEM INTERPRETATION Sinus bradycardia MUSE SYSTEM Otherwise normal ECG When compared with ECG of 05-SEP-1998 15:46, No significant change was found Confirmed by MD TESS, EMILIE ([id number]) on 04/18/2018 1:23: 25 PM Specimen Performing Organization Address City/State/ZIP Code Phon e Number MUSE SYSTEM documented in this encounter Visit Diagnoses Diagnosis SOB (shortness of breath) Shortness of breath Atrial septal aneurysm Aneurysm of heart (wall) documented in this encounter
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
--- OUTSIDE RECORDS SUMMARY | 2020-07-20 13:14 | XMS_ITS | Encounter Summary ---
:1945 [place] [address] Care Team Providers Name Role Phone Katherine Marroquin MD Primary Care Provider Reason for Visit Reason Comments Skin Check hx of BCC Encounter Details Date Type Department Care Team Description 07/01/2017 [facility] of basal [facility]; [facility] Benign nevus; [address] Seborrheic keratoses; [place] [address] HEATER Solar lentigo; [phone] RD-DERMATOLOGY [place] angioma; [place], [place] [address] Scar [phone] Social History Tobacco Use Types Packs/Day Years Used Date Former Smoker Smokeless Tobacco: Never Used Alcohol Use Drinks/Week oz/Week Comments Yes 7 Cans of beer 7.0 Sex Assigned at Date Recorded Not on file documented as of this encounter Progress Notes Marlen Mtz MD - 07/01/2017 11:15 AM EDT DERMATOLOGY ESTABLISHED PATIENT CLINIC NOTE Date of service: 07/01/2017 Suinl Rg : 1945 Provider: Marlen Mtz MD PROBLEM: Full skin cancer examination SKIN HISTORY Pigmented BCC, left clavicle s/p shave removal 01/2015 Seborrheic dermatitis of scalp Favor pigmented actinic keratosis; ddx includes seborrheic keratosis, doubt melanocytic lesion, leftlateral brow s/p liquid nitrogen Is not careful in the sun HPI Mr. Rg is a 71 y.o. male. Established patient, last seen 08/15/2016. Here today for a full skin exam. He mentioned he has a mole on the left collar non itching or bleeding unknown length of time present. ADR: Ciprofloxacin MEDS: Current Outpatient Prescriptions on File Prior to Visit Medication Sig Dispense Refill ??? tamsulosin (FLOMAX) 0.4 mg Capsule, Sust. Release 24 hr Take 0.4 mg by mouth daily. ??? PYGEUM AFRICANUM BARK, BULK, MISC by [facility].(Non-Drug; Combo Route) route. Reported on 08/15/2016 ??? Miscellaneous Medical Supply Misc by [facility].(Non-Drug; Combo Route) route. Oral flower pollen for BPH ??? clobetasol (TEMOVATE) 0.05 % Solution Apply once to twice daily to scalp for 2 weeks then as needed for flares (Patient not taking: Reported on 06/19/2016) 50 mL 2 ??? ketoconazole (NIZORAL) 2 % Shampoo Use twice a week on scalp (Patient not taking: Reported on 06/19/2016) 120 mL 3 ??? fish oil-omega-3 fatty acids 1,000 mg [...] Text Med - calcium citrate with magnesium ??? aspirin 325 mg tablet ??? VITAMIN B COMPLEX ORAL (Patient not taking: No sig reported) No current facility-administered medications on file prior to visit. SOCIAL HISTORY Is not careful in the sun ROS General: feeling well Skin: denies other skin complaints EXAM General: NAD, pleasant, cooperative Skin: The patient was asked to disrobe to the level of their comfort. Full skin examination of the scalp, hair, head, face, neck, back, chest, abdomen, right and left upper extremities, right and left lower extremities and buttocks was normal with the exception of the findings listed below. Significant skin findings: A. Multiple 0.4-0.6cm brown papules with waxy, stuck-on appearance. B. Multiple 0.2-0.4cm bright red, well-demarcated papules. C. Sun exposed areas: 0.3-0.6cm light-brown evenly pigmented, well-demarcated macules. D. Right brow: 0.3-0.5cm, medium-brown, evenly-pigmented macule. No pigmented lesions suspicious formelanoma. E. Left clavicle: well healed scar. ASSESSMENT/PLAN: A. Seborrheic Keratoses - Reassured about benign nature and natural history. B. [place] Angiomas - Reassured about benign nature and natural history. C. Solar Lentigines - Reassured about benign nature and natural history. - Sun avoidance, protective clothing and the use of SPF 30 sunscreen is advised. Observe closely forskin changes and call if such occurs. D. Benign Appearing Nevus, right brow - Reassured about benign nature and natural history. D. H/o BCC - NER. RTC June 2018 for 1 year full skin exam, hx BCC - or sooner as needed. Note initiated and routed to physician for review and change by: ARASELI PORTER is documenting this encounter acting as the scribe for and in the presence of NicoleC. Bibi MD I performed the above scribed service and agree with the accuracy of the documentation in this encounter. Marlen Mtz MD Section of Dermatology [facility] documented in this encounter Plan of Treatment Not on filedocumented as of this encounter Visit Diagnoses Diagnosis History of basal cell carcinoma Personal history of other malignant neop lasm of skin Benign nevus Benign neoplasm of skin, site unspecifie d Seborrheic keratoses Solar lentigo Other dyschromia [place] angioma Nevus, non-neoplastic Scar Scar condition and fibrosis of skin documented in this encounter
--- OUTSIDE RECORDS SUMMARY | 2020-07-20 13:14 | XMS_ITS | Encounter Summary ---
:1945 Author Organization [facility] [place] [address] Care Team Providers Name Role Phone MD Lopez Primary Care Provider Encounter Details Date Type Department Care Team Description 03/03/2017 Abstract [facility] Conversion Apd Conversion, Flowsheet Results Provider, [address] [place] [address] Social History Tobacco Use Types Packs/Day Years Used Date Former Smoker Alcohol Use Drinks/Week oz/Week Comments Yes 7 Cans of beer 7.0 Sex Assigned at Date Recorded Not on file documented as of this encounter Last Filed Vital Signs Vital Sign Reading Time Taken Comments Blood Pressure 116/80 03/03/2017 1:29 Sourced from AP D PM EST Conversion Pulse - - Temperature - - Respiratory Rate - - Oxygen Saturation - - Inhaled Oxygen - - Concentration Weight 62.7 kg (138 lb 3.7 03/03/2017 1:29 Sourced fro m APD oz) PM EST Conversion Height 179.5 cm (5' 10.67) 03/03/2017 1:29 Sourced fr om APD PM EST Conversion Body Mass Index 19.46 03/03/2017 1:29 PM EST documented in this encounter Plan of Treatment Not on filedocumented as of this encounter Visit Diagnoses Not on filedocumented in this encounter
--- OUTSIDE RECORDS SUMMARY | 2020-07-20 13:14 | XMS_ITS | Encounter Summary ---
:1945 Author Organization [facility] [place] [address] Care Team Providers Name Role Phone MD Lopez Primary Care Provider Encounter Details Date Type Department Care Team Description 03/09/2018 Abstract Mireille Love Conversion Apd Conversion, Flowsheet Results Provider, [address] [place] [address] Social History Tobacco Use Types Packs/Day Years Used Date Former Smoker Smokeless Tobacco: Never Used Alcohol Use Drinks/Week oz/Week Comments Yes 7 Cans of beer 7.0 Sex Assigned at Date Recorded Not on file documented as of this encounter Last Filed Vital Signs Vital Sign Reading Time Taken Comments Blood Pressure 100/70 03/09/2018 1:12 Sourced from AP D PM EST Conversion Pulse - - Temperature - - Respiratory Rate - - Oxygen Saturation - - Inhaled Oxygen - - Concentration Weight 62.2 kg (137 lb 2 03/09/2018 1:12 Sourced from APD oz) PM EST Conversion Height 179 cm (5' 10.47) 03/09/2018 1:12 Sourced from APD PM EST Conversion Body Mass Index 19.41 03/09/2018 1:12 PM EST documented in this encounter Plan of Treatment Not on filedocumented as of this encounter Visit Diagnoses Not on filedocumented in this encounter
--- OUTSIDE RECORDS SUMMARY | 2020-07-20 13:14 | XMS_ITS | Encounter Summary ---
:1945 Author Organization [facility] [place] [address] Care Team Providers Name Role Phone MD Lopez Primary Care Provider Encounter Details Date Type Department Care Team Description 03/20/2017 Orders Only Radiology and Cardiology Apd Conversion, Results Results Provider, [address] [place] [phone] Social History Tobacco Use Types Packs/Day Years Used Date Former Smoker Alcohol Use Drinks/Week oz/Week Comments Yes 7 Cans of beer 7.0 Sex Assigned at Date Recorded Not on file documented as of this encounter Plan of Treatment Not on filedocumented as of this encounter Procedures Procedure Name Priority Date/Time Associated Diagnosis Comme nts HEMOGLOBIN A1C Routine 03/20/2017 Results for t his procedure are in the resu lts section. documented in this encounter Results Hemoglobin A1c (03/20/2017) Pathologist Sig nature Est Avg Gluc 111.2 (External 82.5 - 116.9 [facility]) CONVERSION Hemoglobin A1C 5.5 (External 4.5 - 6.2 [facility]) CONVERSION Specimen Performing Organization Address City/State/ZIP Code Phon e Number [facility] [address] [place] [address] [facility] documented in this encounter Visit Diagnoses Not on filedocumented in this encounter
--- OUTSIDE RECORDS SUMMARY | 2020-07-20 13:14 | XMS_ITS | Encounter Summary ---
:1945 Author Organization [facility] Address [address] [place] [address] Care Team Providers Name Role Phone MD Lopez Primary Care Provider Reason for Visit Reason Comments Annual Wellness Visit Encounter Details Date Type Department Care Team Description 04/21/2019 Office Visit Primary Care at Maryann Garcia N ormocytic anemia; Tapan Peralta MD Screening for diabetes mellitus; [address] Screening for hyperlipidemia ; [place] [address] [address] [address] Screening for prostate cancer; [phone] PRIMARY CARE Screening for colon cancer; [place], [place] [address] Chronic pain of right knee; [phone] Former smoker; [phone] Atrial septal a neurysm; (Fax) SOB (shortness of breath) Social History Tobacco Use Types Packs/Day Years Used Date Former Smoker Quit: 04/14/18 70 Smokeless Tobacco: Never Used Alcohol Use Drinks/Week oz/Week Comments Yes 7 Cans of beer 7.0 Sex Assigned at Date Recorded Not on file documented as of this encounter Last Filed Vital Signs Vital Sign Reading Time Taken Comments Blood Pressure 100/68 04/21/2019 10:36 AM EST Pulse 76 04/21/2019 10:36 AM EST Temperature - - Respiratory Rate - - Oxygen Saturation 94% 04/21/2019 10:36 AM EST Inhaled Oxygen Concentration - - Weight 61 kg (134 lb 6.4 oz) 04/21/2019 10:36 AM EST Height 176.5 cm (5' 9.5) 04/21/2019 10:36 AM EST Body Mass Index 19.56 04/21/2019 10:36 AM EST documented in this encounter Progress Notes Maryann Marroquin MD - 04/21/2019 10:30 AM EST Subjective: HPI: Sunil Rg is a 73 y.o. male presenting to the [facility] Care [facility] for an annual chronicdisease review. Concerns Today: 1. SOB - this has been ongoing (discussed this last year.) is fairly active with skiing. Has not hadan inhaler before. They did show a Atrial septal aneurysm on stress echo and he followed up with cardiology who felt this was an incidental finding. He is very active with xc skiing and snowshoeing andSOB only occurs with heavy exertion. He is just frustrated that he can no longer keep up with his daughter and grandkids skate skiing up hills or running up a mountain. 2. Right knee pain - does PT twice a week [email or web address] Has had meniscal tear int he past. Feels as though it is going to lock going down stairs. Also hurts driving on the inside of the knee. Has arthritis in his spine so wouldn't be surprised if he had some in his knee as well. 3. Balance - PT helps but feels it not good as it should be. Hip pain when nordic skiing, not daily not when walking R>L Lifestyle Diet: Healthy diet Exercise: skiing, hiking, walking. 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 Safety: Seatbelt: Always wears seatbelt Patient reported measures: Pain: Physical Health: Fall: PHQ-9 QUESTIONNAIRE (AMB) 04/21/2019 Little interest or pleasure (Patient) Not at all Down, depressed, hopeless (Patient) Not at all No flowsheet data found. Current Outpatient Medications Medication Sig Note ??? magnesium oxide 200 mg magnesium Tablet Take by mouth. ??? tamsulosin ER (FLOMAX) 0.4 mg Capsule Take 1 capsule by mouth daily. DO NOT CRUSH OR OPEN ??? Ginkgo Biloba 60 mg Capsule Take 1 capsule by mouth daily. ??? ibuprofen (ADVIL;MOTRIN) 200 mg Tablet Take 1 tablet by mouth daily as needed. ??? VITAMIN K2 ORAL Take by mouth. ??? cholecalciferol, Vitamin D3, (VITAMIN D) 1,000 unit Capsule Take by mouth. ??? fish oil-omega-3 fatty acids 1,000 mg Capsule Take 2 g by mouth daily. ??? triamcinolone (KENALOG) 0.1 % Ointment Apply 1 each topically 2 times daily. ??? aspirin 325 mg tablet 04/21/2019: Prn Patient Active Problem List Diagnosis ??? Normocytic anemia per hematology follow q6-12 months ??? Atrial septal aneurysm ??? SOB (shortness of breath) ??? Rose's esophagus ??? Basal cell carcinoma of skin ??? Diabetes insipidus ??? Diverticulosis of colon ??? Erectile dysfunction ??? Fatigue ??? Hemorrhoids ??? Muscle spasm ??? Neuropathy ??? Urinary frequency ??? Trigeminal neuralgia ??? Atrial septal aneurysm ??? Irritable bowel syndrome ??? Scoliosis ??? Sternoclavicular joint subluxation, right, initial encounter ??? Prostatitis ??? Lyme disease ??? Right foot pain No past medical history on file. Past Surgical History: Procedure Laterality Date ??? PRO COLONOSCOPY, DIAGNOSTIC N/A 12/21/2014 COLONOSCOPY, DIAGNOSTIC performed by Ryne Stevens MD at [facility] ENDOSCOPY ??? PRO UPPER GI ENDOSCOPY, BIOPSY N/A 12/21/2014 UPPER GASTROINTESTINAL ENDOSCOPY,WITH BIOPSY SINGLE OR MULTIPLE performed by Ryne Stevens MD at [facility] ENDOSCOPY Family History Problem (# of Occurrences) Relation (Name,Age of Onset) Breast Cancer (1) Mother Cerebral Aneurysm (1) Father Allergies Allergen Reactions ??? Ciprofloxacin Rash Social History Tobacco Use ??? Smoking status: Former Smoker Last attempt to quit: 04/14/1968 Years since quittin.0 ??? Smokeless tobacco: Never Used Substance Use Topics ??? Alcohol use: Yes Alcohol/week: 7.0 standard drinks Types: 7 Cans of beer per week Social History Social History Narrative ??? Not on file Annual Wellness Visit Responses: myD-H Annual Wellness Visit Responses 04/21/2019 Health in general Excellent Quality of life Excellent Physical health Excellent Mental health Excellent Satisfaction with social activities Excellent Ability to carry out social activities Excellent Ability to carry out physical activities Completely Bothered by emotional problems Rarely Rate of fatigue Mild Rate of pain 2 PROMIS-10 Physical Health Score 57.7 PROMIS-10 Mental Health Score 62.5 Hearing Loss No Fallen in last year Yes Difficulties with balance or walking Yes Injured as a result of a fall No Difficulty walking 1/4 mile No or some difficulties Difficulty climbing a flight of stairs No or some difficulties Involuntarily lost > 10 pounds No Feel everything is an effort/could not get going Rarely or sometimes (2 times or less/week) Physical activity level Regular physical activity (at least 2-4 hours per week) Disability Score (FiND) 0 (Robust) Little interest or pleasure Not at all Down, depressed, hopeless Not at all Feel lonely or isolated Never Have money for everyday living Yes Confident in managing health problems Very confident Medication finances No Smoking Status Never Drinking frequency 4 or more times a week Drinks per day 1 or 2 drinks 6+ drinks on one occasion Never Audit-C Score 4 (At Risk) 10 mins of vigorous physical activity 4 days Time spent on vigorous physical activity 90 minutes or more Time spent on moderate physical activity 60 minutes Eat Fruit 1 - 3 times per day Eat Vegetables 4 - 5 times per day Wear Seatbelt Always Urinary Incontinence No Sexually active No Live Alone No School Postgraduate school or degree Employment Status Retired (not due to ill health) Hours per week Does not apply Combined Household Income $25,000 to less than $35,000 # People Supported 2 Who is taking survey I am (patient) ROS: Review of Systems Constitutional: Negative for appetite change, chills, fever and unexpected weight change. HENT: Negative for congestion, ear pain and sore throat. Eyes: Negative for pain and discharge. Respiratory: Negative for cough and shortness of breath. Cardiovascular: Negative for chest pain and palpitations. Gastrointestinal: Negative for abdominal pain, diarrhea and vomiting. Genitourinary: Negative for dysuria and flank pain. Skin: Negative for rash. Neurological: Negative for seizures and headaches. No flowsheet data found. Objective: VS: BP 100/68 Pulse 76 Ht 176.5 cm (5' 9.5) Wt 61 kg (134 lb 6.4 oz) SpO2 94% BMI 19.56 kg/m?? BMI: Body mass index is 19.56 kg/m??. Physical Exam Constitutional: He is oriented to person, place, and time. He appears well- developed and well-nourished. No distress. HENT: Head: Normocephalic and atraumatic. Right Ear: Tympanic membrane and external ear normal. Left Ear: Tympanic membrane and external ear normal. Nose: Nose normal. Mouth/Throat: Oropharynx is clear and moist. No oropharyngeal exudate. Eyes: Pupils are equal, round, and reactive to light. Conjunctivae and EOM are normal. Right eye exhibits no discharge. Left eye exhibits no discharge. No scleral icterus. Neck: Normal range of motion. Neck supple. Carotid bruit is not present. No tracheal deviation and no edema present. No thyromegaly present. Cardiovascular: Normal rate, regular rhythm, normal heart sounds and intact distal pulses. No murmur heard. Pulmonary/Chest: Breath sounds normal. No stridor. No respiratory distress. Abdominal: Soft. Bowel sounds are normal. He exhibits no distension. There is no hepatosplenomegaly.There is no tenderness. Musculoskeletal: He exhibits no edema. Lymphadenopathy: He has no cervical adenopathy. Right: No supraclavicular adenopathy present. Left: No supraclavicular adenopathy present. Neurological: He is alert and oriented to person, place, and time. No cranial nerve deficit. He exhibits normal muscle tone. Coordination normal. Skin: Skin is warm and dry. No rash noted. Psychiatric: He has a normal mood and affect. His behavior is normal. Nursing note and vitals reviewed. Winged R scapula Assessment and Plan: Problem List Items Addressed This Visit Atrial septal aneurysm SOB (shortness of breath) Normocytic anemia Relevant Orders CBC (with Diff) Other Visit Diagnoses Screening for diabetes mellitus Relevant Orders Glucose, fasting Screening for hyperlipidemia Relevant Orders Lipid Panel (Reflex Direct LDL) Screening for prostate cancer Relevant Orders PSA Screen Screening for colon cancer Relevant Orders Fecal Occult Blood, Immunoassay Chronic pain of right knee Relevant Orders XR Knee 4 or more views Right Former smoker Relevant Orders US AAA Screening FOLLOWUP: Return in about 1 year (around 04/21/2020) for CDR. documented in this encounter Plan of Treatment Not on filedocumented as of this encounter Results US AAA Screening (05/11/2019 10:16 AM EST) Specimen Impressions Performed At RAD Aorta Screening Summary No evidence of abdominal aortic aneurym with focal plaque visualized in mid to distal ??po rtions of aorta. I ??viewed the images and agree with kasia hidalgo interpretation. ?Johnathan Georges, Staff Rc menjivar Electronically Signed Final Report ?? 10:24 am Narrative Performed At [facility] Aorta ? (S igned Final 05/11/2019 10:24 am) PATIENT INFO: ID #: ? [id number] ?: ??[birth year] (73 yrs) Name: ? SUNIL PHAN ? Visi t Date: 05/11/2019 09:56 am ? LYNNE PERFORMED BY: Performed By: ? Montse Solares RDMS Attending: ?Destini YOO, Johnathan Lopez Referred By: ?MARYANN MARROQUIN Location: ? [facility] SERVICE(S) PROVIDED: ??UAORTA - AAA Screening - [id number] ?[id number] INDICATIONS: ??73 yo M former smoker COMPARISON: [...] 05/11/2019 10:24 am) PATIENT INFO: ID #: [id number] : [birth year] (73 yrs) Name: SUNIL PHAN Visit Date: 05/11/2019 09:56 am LYNNE PERFORMED BY: Performed By: Montse Solares RDMS Attending: Jonhathan Georges MD Referred By: MARYANN MARROQUIN Location: SERVICE(S) PROVIDED: UAORTA - AAA Screening - [id number] INDICATIONS: 73 yo M former smoker COMPARISON: [...] Organization Address City/State/ZIP Code Phon e Number [place], [place] XR Knee 4 or more views Right (05/11/2019 10:03 AM EST) Specimen Impressions Performed At Right knee joint degenerative change most pronounced i n the medial RAD compartment where it is moderate in severity. Thank you for letting us participate in the care of th is patient. For questions regarding this report, please contact the number below . ? Electronically signed by: Johnathan Georges Radiology [facility] ([phone]), at 05/11/2019 10:23 AM Narrative Performed At EXAMINATION: XR KNEE 4 OR MORE VIEWS RIG [facility] CLINICAL HISTORY: 73 yo M with [...] EXAMINATION: XR KNEE 4 OR MORE VIEWS RIG HT CLINICAL HISTORY: 73 yo M with R [...] For questions regarding this report, please contact [facility] number below. Performing Organization Address City/State/ZIP Code [facility] e Number [place], [place] Glucose, fasting (05/11/2019 9:39 AM EST) Glucose Fasting 101 (H) 65 - 99 LYNN PERALTA Comment: mg/dL LABORATORY ?Fasting* Glucose Interpretive [...] of Diabetes Mellitus, Position Statement from the [place] [employer]. ??Diabetes Care, Volume 33, Supplement 1, Apr 2009 Specimen Blood specimen (specimen) Resulting Agency Comment Spec In Lab / APD Performing Organization Address City/State/ZIP Code Phon e Number LABORATORY [address] [place], [place] [address] Lipid Panel (Reflex Direct LDL) (05/11/2019 9:39 AM EST) Chol, Total 188 mg/dL Comment: LABORATORY Lower Risk: <200 mg/dL Average Risk: 200-239 mg/dL Higher Risk: >ci=965 mg/dL Triglycerides 52 mg/dL Comment: LABORATORY Average Risk/Lower Risk: <150 mg/dL Borderline High Risk: 150-199 mg/dL High Risk: 200-499 mg/dL Very High Risk: >ps=754 mg/dL HDL 56 mg/dL Comment: LABORATORY Males: ?? Higher Risk: <40 mg/dL Females: ?? HIgher Risk: <50 mg/dL LDL Cholesterol 122 mg/dL Comment: LABORATORY Lowest Risk: <100 mg/dL Lower Risk: 100-129 mg/dL Borderline High Risk: 130-159 mg/dL High Risk: 160-189 mg/dL Very High Risk: >qi=519 mg/dL Chol/HDL Ratio 3.4 ratio LABORATORY Lipid Interpretation See Note Comment: LABORATORY Lipid management should be g uided by a patient? s ASCVD risk, goals and preferences. ACC/AHA Guidelines recommend high intensity statin if clinical ASCVD or LDL greater than or equal to 190 mg/dL. http://tinyurl.com/KPV-ZOX-Pyknhtfzr Adults aged 40-75 with LDL 70-189 mg/dL should have th eir 10 year ASCVD risk estimated with the ACC/AHA ASCVD risk senior construction estimator http://tools.acc.org/BBRUZ-Karj-Apbgidbtb/ Statin should be discussed if risk greater [...] In Lab / APD Performing Organization Address City/[facility]/ZIP Code Phon e Number [facility]ORY [address] [facility] [place] [place] [address] PSA Screen (05/11/2019 9:39 AM EST) Pathologist Sig nature PSA Total 2.39 0.00 - 4.00 ng/mL [facility] Specimen Blood specimen (specimen) Resulting Agency Comment Spec In Lab / APD Performing Organization Address [facility] Phon e Number LYNN [facility]TER[facility] LABORATORY [address] [place], [place] [address] Fecal Occult Blood, Immunoassay (04/22/2019 12:00 AM EST) Pathologist Sig nature Fecal Occult Blood, Negative Negative [facility] Immunoassay [facility] LABORATORY Specimen Stool specimen (specimen) Resulting Agency Comment Spec In Lab / APD Performing Organization Address City/[facility] [place] [address] documented in this encounter Visit Diagnoses Diagnosis Normocytic anemia Anemia, unspecified Screening for diabetes mellitus Screening for hyperlipidemia Screening for lipoid disorders Screening for prostate cancer Special screening for malignant neoplasm of prostate Screening for colon cancer Special screening for malignant neoplasm s, colon Chronic pain of right knee Former smoker Personal history of tobacco use, present ing hazards to health Atrial septal aneurysm Aneurysm of heart (wall) SOB (shortness of breath) Shortness of breath documented in this encounter
--- OUTSIDE RECORDS SUMMARY | 2020-07-20 13:14 | XMS_ITS | Encounter Summary ---
:1945 Author Organization [facility] [place] [address] Care Team Providers Name Role Phone MD Lopez Primary Care Provider Reason for Referral Consultation (Routine) Status Reason Specialty Diagnoses / Referred By Referred To Procedures Contact Contact Consult, Test & Dermatology Diagnoses Skin lesion Bibi Marroquin Nicole C, Treat MD FREDO Perkins [address] [facility] [place], [place] RD-DERMATOLOG Y [address] [place], [place] Phone: [phone] Phone: Electronically signed by Maddie Marroquin MD at Encounter Details Date Type Department Care Team Description 03/09/2019 Telephone Primary Care at Maddie Mendoza MD Day [address] [place] [address] [place] [address] [phone] Social History Tobacco Use Types Packs/Day Years Used Date Former Smoker Quit: 04/14/18 70 Smokeless Tobacco: Never Used Alcohol Use Drinks/Week oz/Week Comments Yes 7 Cans of beer 7.0 Sex Assigned at Date Recorded Not on file documented as of this encounter Miscellaneous Notes Telephone Encounter - Rosie Levin - 03/09/2019 9:18 AM EST He would like a referral to [facility] Dermatology for a skin check documented in this encounter Plan of Treatment Scheduled Referrals Name Type Priority Associated Order Schedule Diagnoses Referral to Outpatient Referral Routine Skin lesion Ordered: Dermatology 03/09/2019 documented as of this encounter Visit Diagnoses Diagnosis Skin lesion Unspecified disorder of skin and subcuta neous tissue documented in this encounter
--- OUTSIDE RECORDS SUMMARY | 2020-07-20 13:14 | XMS_ITS | Encounter Summary ---
:1945 Author Organization [facility] [place] [address] Care Team Providers Name Role Phone MD Lopez Primary Care Provider Reason for Visit Reason Comments Follow-up Encounter Details Date Type Department Care Team Description 11/27/2018 Office Visit Hematology and Abby Warner MD [facility] DR HEMATOLOGY/[place] [address] [phone] PATIENT NOT SEEN Oncology at [facility] Sushma Claudio APRN [facility] DR HEMATOLOGY/[place] [address] [phone] [facility] Shamir Smallwood MD [facility] DR HEMATOLOGY/[place] [address] [phone] [place] [address] Social History Tobacco Use Types Packs/Day Years Used Date Former Smoker Quit: 04/14/18 70 Smokeless Tobacco: Never Used Alcohol Use Drinks/Week oz/Week Comments Yes 7 Cans of beer 7.0 Sex Assigned at Date Recorded Not on file documented as of this encounter Last Filed Vital Signs Vital Sign Reading Time Taken Comments Blood Pressure 113/65 11/27/2018 2:58 PM EDT Pulse 54 11/27/2018 2:58 PM EDT Temperature 37.2 ??C (99 ??F) 11/27/2018 2:57 PM EDT Respiratory Rate 16 11/27/2018 2:57 PM EDT Oxygen Saturation 100% 11/27/2018 2:58 PM EDT Inhaled Oxygen Concentration - - Weight 59 kg (130 lb) 11/27/2018 2:58 PM EDT Height 177.8 cm (5' 10) 11/27/2018 2:58 PM EDT Body Mass Index 18.65 11/27/2018 2:58 PM EDT documented in this encounter Progress Notes Simon Warner MD - 11/27/2018 3:00 PM EDT HEMATOLOGY/BMT CONSULTATION VISIT NOTE CHIEF COMPLAINT: Sunil Rg is a 73 y.o. male referred by Maddie Marroquin MD for evaluationof anemia. ORIGINAL HISTORY OF PRESENT ILLNESS Sunil Rg dates the onset of anemia to since [...] accident but he stopped on his own about 16 years ago. INTERIM HPI Idris says he has had a good summer. Goes to the gym twice per week - rows and cycles. Does have mildDOE when walking up hill. Says he recently had a cardiac stress test and it was normal. Feels stronger in the morning. Doesn't take a nap. 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 FH No FH of blood diseases or disorders Younger brother with prostate Ca Mother with breast cancer REVIEW OF SYSTEMS Constitutional --Energy level: good --Pain: none --Fevers/chills/sweats: No --Unexpected weight loss or gain: [...] to Visit Medication Sig Dispense Refill ??? UNABLE TO FIND Med Name: Tumeric ??? blue-green algae (SPIRULINA MISC) by Misc.(Non-Drug; Combo Route) route. ??? VITAMIN K2 ORAL Take by mouth. ??? cholecalciferol, Vitamin D3, (VITAMIN D) 1,000 unit Capsule Take by mouth. ??? KELP ORAL Take by mouth. ??? tamsulosin (FLOMAX) 0.4 mg Capsule, Sust. Release 24 hr Take 0.4 mg by mouth daily. ??? PYGEUM AFRICANUM BARK, BULK, MISC by [facility].(Non-Drug; Combo Route) route. Reported on 08/15/2016 ??? Miscellaneous Medical Supply Misc by [facility].(Non-Drug; Combo Route) route. Oral flower pollen for [...] Cerebral Aneurysm Father PHYSICAL EXAM VITAL SIGNS: There were no vitals taken for this visit. GENERAL: Sunil Rg is a well-appearing 73 y.o. male in no acute distress. Full exam not performed today LABORATORY Recent Results (from the past 72 hour(s)) Comprehensive metabolic panel (non-fasting) Result Value Ref Range Glucose Lvl 115 65 - 199 mg/dL BUN 19 10 - 20 mg/dL Creatinine 0.85 0.80 - 1.50 mg/dL Sodium 138 135 - 145 mmol/L Potassium 4.6 3.5 - 5.0 mmol/L Chloride 101 98 - 107 mmol/L CO2 30 22 - 31 mmol/L Anion Gap 7 5 - 15 mmol/L Calcium 9.1 8.5 - 10.5 mg/dL Total Protein 6.7 6.1 - 8.0 gm/dL Albumin 4.2 3.2 - 5.2 gm/dL AST 11 0 - 39 unit/L ALT 14 0 - 55 unit/L Alk Phos 42 40 - 130 unit/L Total Bilirubin 0.4 0.2 - 1.3 mg/dL eGFR 87 >=60 mL/min/1.73 m?? eGFR 101 >=60 mL/min/1.73 m?? Hemogram Result Value Ref Range WBC 7.9 4.0 - 9.5 x10(3)/mcL RBC 4.35 (L) 4.58 - 5.54 x10(6)/mcL Hemoglobin 13.2 (L) 13.7 - 16.5 gm/dL Hematocrit 41.0 40.5 - 48.5 % MCV 94.3 (H) 82.9 - 93.1 fL MCH 30.3 27.5 - 32.1 pg MCHC 32.2 32.0 - 35.7 gm/dL Platelets 328 145 - 357 x10(3)/mcL RDWSD 45.4 (H) 36.0 - 45.0 fL RDWCV 13.2 11.4 - 13.8 % MPV 9.5 7.6 - 12.9 fL nRBC % Auto 0.0 % nRBC Abs Auto 0.000 0.000 - 0.000 x10(3)/mcL Differential, Automated Result Value Ref Range Neutrophils % 70.8 % Neutr Abs (ANC) 5.58 1.70 - 6.10 x10(3)/mcL Lymphocytes % 18.9 % Lymphocytes Abs 1.5 0.9 - 3.2 x10(3)/mcL Monocytes % 7.2 % Monocyte Abs 0.6 0.3 - 0.9 x10(3)/mcL Eosinophils % 2.3 % Eosinophils Abs 0.2 0.0 - 0.4 x10(3)/mcL Basophils % 0.5 % Basophils Abs 0.0 0.0 - 0.1 x10(3)/mcL Immature Gran % 0.30 % Yamini Gran Abs 0.02 0.00 - 0.04 x10(3)/mcL RADIOLOGY - None ASSESSMENT & PLANS 1.Anemia - Misha has a mild normocytic anemia which is now improved so that his Hgb is the highest ithas been in the last year and very near to normal. His other counts remain normal. His initial evaluation 6 months ago did not show any signs of leukemia, MDS, lymphoma, myeloma, B12 or folate or iron deficiencies. The main purpose of today's appt was to determine whether his anemia was progressive and if he were developing new symptoms or new blood abnormalities. The fact that his Hgb is improved, other counts remain normal and he has no new sx all suggest that he does not have a serious underlying hematologic disorder. For now I would recommend checking Idris's CBC every 6-12 months. I'm glad to see him anytime should his condition change but for now no further hematology follow-up is recommended. TOTAL TIME OF VISIT: 250 minutes TIME SPENT ON COUNSELING AND COORDINATION OF CARE: 15 minutes Simon Warner MD Division of Hematology and Blood & Marrow Transplant [facility] Gtfhltyahsogne signed by Simon Warner MD at 11/27/2018 3:33 PM EDTdocumented in this encounter Miscellaneous Notes Addendum Note - Simon Warner MD - 11/27/2018 3:00 PM EDT Addended by: SIMON WARNER on: 11/27/2018 02:23 PM Modules accepted: Level of Service documented in this encounter Plan of Treatment Not on filedocumented as of this encounter Visit Diagnoses Diagnosis DH PATIENT NOT SEEN documented in this encounter
--- OUTSIDE RECORDS SUMMARY | 2020-07-20 13:14 | XMS_ITS | Encounter Summary ---
:1945 Author Organization [facility] [place] [address] Care Team Providers Name Role Phone Katherine Marroquin MD Primary Care Provider Encounter Details Date Type Department Care Team Description 03/27/2018 External Results Laboratory at Maddie Lara Day MD 10 [facility] 5 [facility] [place] [address] [place] [address] [phone] Social History Tobacco Use Types Packs/Day Years Used Date Former Smoker Smokeless Tobacco: Never Used Alcohol Use Drinks/Week oz/Week Comments Yes 7 Cans of beer 7.0 Sex Assigned at Date Recorded Not on file documented as of this encounter Plan of Treatment Not on filedocumented as of this encounter Procedures Procedure Name Priority Date/Time Associated Diagnosis Comme nts APD LAB RESULT Routine 03/27/2018 12:00 AM Result s for this EST procedure are i n the results section . documented in this encounter Results APD Lab Result (03/27/2018 12:00 AM EST) Pathologist Sig nature APD LAB RESULT FECAL OCCULT [facility] BLOOD,[facility] (External Lab) Specimen Narrative Performed At [facility] Component ? Value ?RefRange ??Units ? Status Abn? FECAL OCCULT BL ? NEGATIVE ? NEGATIVE ?F ? Performing Organization Address City/State/ZIP Code Phon e Number [facility] [address] [place], [place] [address] documented in this encounter Visit Diagnoses Not on filedocumented in this encounter
--- OUTSIDE RECORDS SUMMARY | 2020-07-20 13:14 | XMS_ITS | Encounter Summary ---
:1945 Author Organization [facility] [place] [address] Care Team Providers Name Role Phone Katherine Marroquin MD Primary Care Provider Encounter Details Date Type Department Care Team Description 02/26/2018 External Results Laboratory at Angela Green APRN Day [address] [place] [address] [place] [address] [phone] Social History Tobacco Use Types Packs/Day Years Used Date Former Smoker Smokeless Tobacco: Never Used Alcohol Use Drinks/Week oz/Week Comments Yes 7 Cans of beer 7.0 Sex Assigned at Date Recorded Not on file documented as of this encounter Plan of Treatment Not on filedocumented as of this encounter Procedures Procedure Name Priority Date/Time Associated Diagnosis Comme nts FE PANEL Routine 02/26/2018 2:10 PM Results for this EST procedure are i n the results section . HEMOGRAM Routine 02/26/2018 2:10 PM Results for this EST procedure are i n the results section . documented in this encounter Results FE PANEL (02/26/2018 2:10 PM EST) Iron 108 (External 65 - 175 ug/dL [facility] TIBC 338 (External 250 - 450 ug/dL [facility] Transferrin 243 (External 202 - 364 mg/dL [facility] Ferritin 34 (External 8 - 388 ng/mL [facility] Iron Saturation 31.9 (External 20 - 50 % [facility] Specimen Performing Organization Address City/[facility]/ZIP Code Phon e Number [facility] 10 [place], [place] [address] Hemogram (02/26/2018 2:10 PM EST) WBC 8.5 (External 4.0 - 10.0 [facility] 10^3/uL HOSPITAL RBC 4.34 (ExtL) 4.63 - 6.08 [facility] 10^6/uL HOSPITAL Hemoglobin 13.1 (ExtL) 13.7 - 17.5 [facility] g/dL HOSPITAL Hematocrit 40.4 (External 40.0 - 51.0 % [facility] MCV 93.1 (ExtH) 79.0 - 92.0 fL [facility] MCH 30.2 (External 25.6 - 32.2 pg [facility] MCHC 32.4 (External 32.0 - 36.5 [facility] g/dL [facility] RDWCV 13.4 (External 10.9 - 14.4 % [facility] RDWSD 45 (External 35 - 46 fL [facility] Platelets 343 (External 145 - 370 [facility]) 10^3/uL [facility] MPV 10.2 (External 9.0 - 12.0 fL [facility] Periph Smear Rev NO (External [facility] Specimen Performing Organization Address City/[facility]/ZIP Code Phon e Number [facility] [address] [place], [place] [address] documented in this encounter Visit Diagnoses Not on filedocumented in this encounter
--- OUTSIDE RECORDS SUMMARY | 2020-07-20 13:14 | XMS_ITS | Encounter Summary ---
:1945 Author Organization [facility] [place] [address] Care Team Providers Name Role Phone Katherine Marroquin MD Primary Care Provider Encounter Details Date Type Department Care Team Description 03/27/2018 Orders Only Lab [facility] Maddie Huang MD [place] [address] [address] [place] [id number] [place] [address] [phone] Social History Tobacco Use Types Packs/Day Years Used Date Former Smoker Smokeless Tobacco: Never Used Alcohol Use Drinks/Week oz/Week Comments Yes 7 Cans of beer 7.0 Sex Assigned at Date Recorded Not on file documented as of this encounter Plan of Treatment Not on filedocumented as of this encounter Procedures Procedure Name Priority Date/Time Associated Comments Diagnosis FECAL OCCULT BLOOD, Routine 03/27/2018 12:00 Resu lts for this IMMUNOASSAY AM EST procedure are i n the results section. documented in this encounter Results Fecal Occult Blood, Immunoassay (03/27/2018 12:00 AM EST) Pathologist Sig nature Fecal Occult Blood, Negative Negative [facility] LABORATORY Specimen Stool specimen (specimen) Resulting Agency Comment Spec In Lab / APD Performing Organization Address City/State/ZIP Code Phon e Number [address] documented in this encounter Visit Diagnoses Not on filedocumented in this encounter
--- OUTSIDE RECORDS SUMMARY | 2020-07-20 13:14 | XMS_ITS | Encounter Summary ---
:1945 Author Organization [facility] Address [facility] [place] [address] Care Team Providers Name Role Phone Katherine Marroquin MD Primary Care Provider Encounter Details Date Type Department Care Team Description 05/07/2018 External Results Laboratory at Maddie Lara Day MD 10 [facility] 5 [facility] [place] [address] [place] [address] [phone] Social History Tobacco Use Types Packs/Day Years Used Date Former Smoker Smokeless Tobacco: Never Used Alcohol Use Drinks/Week oz/Week Comments Yes 7 Cans of beer 7.0 Sex Assigned at Date Recorded Not on file documented as of this encounter Plan of Treatment Not on filedocumented as of this encounter Procedures Procedure Name Priority Date/Time Associated Diagnosis Comme nts HEMOGRAM Routine 05/07/2018 10:35 AM Results for this EST procedure are i n the results section. PSA Routine 05/07/2018 10:35 AM Results for this (ULTRASENSITIVE) EST procedure a re in the results section. documented in this encounter Results PSA (05/07/2018 10:35 AM EST) PSA Total 2.01 (External 0 - 3.99 ng/mL [facility] (Ultrasensitive) Lab) HOSPITAL Specimen Performing Organization Address City/State/ZIP Code Phon e Number [facility] 10 [facility] [place] [address] Hemogram (05/07/2018 10:35 AM EST) WBC 8.3 (External 4.0 - 10.0 [facility] 10^3/uL HOSPITAL RBC 4.23 (ExtL) 4.63 - 6.[address] [facility] 10^6/uL HOSPITAL Hemoglobin 12.5 (ExtL) 13.7 - 17.5 [facility] g/dL HOSPITAL Hematocrit 39.0 (ExtL) 40.0 - 51.0 % [facility] MCV 92.2 (ExtH) 79.0 - 92.0 fL [facility] MCH 29.6 (External 25.6 - 32.2 pg [facility] MCHC 32.1 (External 32.0 - 36.5 [facility]) g/dL [facility]OSPITAL RDWCV 13.5 (External 10.9 - 14.4 % [facility]) [facility] RDWSD 45 (External 35 - 46 fL [facility] Platelets 311 (External 145 - 370 [facility]) 10^3/uL [facility]OSPITAL MPV 9.7 (External 9.0 - 12.0 fL [facility] Neutrophils % 71.8 (ExtH) 34.0 - 71.0 % [facility] Lymphocytes % 17.6 (ExtL) 19.0 - 53.0 % [facility] Monocytes % 7.2 (External 4.0 - 13.0 % [facility] Eosinophils % 3.2 (External 0.0 - 7.0 % [facility] Basophils % 0.2 (External 0.0 - 2.0 % [facility] Neutr Abs (ANC) 6.0 (External 1 - 6 ABS # [facility] Lymphocytes Abs 1.5 (External 1.0 - 3.6 ABS # [facility] Monocyte Abs 0.6 (External 0.2 - 1.0 ABS # [facility] Eosinophils Abs 0.3 (External 0.0 - 0.5 ABS # [facility] Basophils Abs 0.0 (External 0.0 - 0.2 ABS # [facility] Lab) HOSPITAL Specimen Performing Organization Address City/State/ZIP Code Phon e Number [facility] 10 [place], [place] [address] documented in this encounter Visit Diagnoses Not on filedocumented in this encounter
--- OUTSIDE RECORDS SUMMARY | 2020-07-20 13:15 | XMS_ITS | Encounter Summary ---
:1945 Author Organization [facility] [place] [address] Care Team Providers Name Role Phone MD Lopez Primary Care Provider Encounter Details Date Type Department Care Team Description 02/19/2016 Abstract Mire[facility] Love Conversion Apd Conversion, Flowsheet Results Provider, [address] [place] [address] Social History Tobacco Use Types Packs/Day Years Used Date Former Smoker Alcohol Use Drinks/Week oz/Week Comments Yes 7 Cans of beer 7.0 Sex Assigned at Date Recorded Not on file documented as of this encounter Last Filed Vital Signs Vital Sign Reading Time Taken Comments Blood Pressure 110/70 02/19/2016 9:53 AM Sourced from APD EST Conversion Pulse - - Temperature - - Respiratory Rate - - Oxygen Saturation - - Inhaled Oxygen Concentration - - Weight - - Height - - Body Mass Index - - documented in this encounter Plan of Treatment Not on filedocumented as of this encounter Visit Diagnoses Not on filedocumented in this encounter
--- OUTSIDE RECORDS SUMMARY | 2020-07-20 13:15 | XMS_ITS | Encounter Summary ---
:1945 Author Organization [facility] [place] [address] Care Team Providers Name Role Phone MD Lopez Primary Care Provider Encounter Details Date Type Department Care Team Description 03/26/2016 Abstract Mireille Love Conversion Apd Conversion, Flowsheet Results Provider, [address] [place] [address] Social History Tobacco Use Types Packs/Day Years Used Date Former Smoker Alcohol Use Drinks/Week oz/Week Comments Yes 7 Cans of beer 7.0 Sex Assigned at Date Recorded Not on file documented as of this encounter Last Filed Vital Signs Vital Sign Reading Time Taken Comments Blood Pressure 125/76 03/26/2016 9:33 AM Sourced from APD EST Conversion Pulse [...]
--- OUTSIDE RECORDS SUMMARY | 2020-07-20 13:15 | XMS_ITS | Encounter Summary ---
:1945 Author Organization [facility] [place] [address] Care Team Providers Name Role Phone MD Lopez Primary Care Provider Encounter Details Date Type Department Care Team Description 04/19/2016 Abstract Mireille Love Conversion Apd Conversion, Flowsheet Results Provider, [address] [place] [address] Social History Tobacco Use Types Packs/Day Years Used Date Former Smoker Alcohol Use Drinks/Week oz/Week Comments Yes 7 Cans of beer 7.0 Sex Assigned at Date Recorded Not on file documented as of this encounter Last Filed Vital Signs Vital Sign Reading Time Taken Comments Blood Pressure 110/68 04/19/2016 10:43 AM Sourced from APD EST Conversion Pulse [...]
--- OUTSIDE RECORDS SUMMARY | 2020-07-20 13:15 | XMS_ITS | Encounter Summary ---
:1945 Author Organization [facility] [place] [address] Care Team Providers Name Role Phone MD Lopez Primary Care Provider Encounter Details Date Type Department Care Team Description 2016 Abstract Mireille Love Conversion Apd Conversion, Flowsheet Results Provider, [address] [place] [address] Social History Tobacco Use Types Packs/Day Years Used Date Former Smoker Alcohol Use Drinks/Week oz/Week Comments Yes 7 Cans of beer 7.0 Sex Assigned at Date Recorded Not on file documented as of this encounter Last Filed Vital Signs Vital Sign Reading Time Taken Comments Blood Pressure 108/72 2016 9:38 Sourced from AP D AM EDT Conversion Pulse - - Temperature - - Respiratory Rate - - Oxygen Saturation - - Inhaled Oxygen - - Concentration Weight 64 kg (141 lb 1.5 2016 9:38 Sourced from APD oz) AM EDT Conversion Height 179 cm (5' 10.47) 2016 9:38 Sourced from APD AM EDT Conversion Body Mass Index 19.97 2016 9:38 AM EDT documented in this encounter Plan of Treatment Not on filedocumented as of this encounter Visit Diagnoses Not on filedocumented in this encounter
--- OUTSIDE RECORDS SUMMARY | 2020-07-20 13:15 | XMS_ITS | Encounter Summary ---
:1945 [address] [facility] [place] [address] Care Team Providers Name Role Phone MD Lopez Primary Care Provider Encounter Details Date Type Department Care Team Description 10/16/2016 Abstract Mireille Love Conversion Apd Conversion, Flowsheet Results Provider, [address] [place] [address] Social History Tobacco Use Types Packs/Day Years Used Date Former Smoker Alcohol Use Drinks/Week oz/Week Comments Yes 7 Cans of beer 7.0 Sex Assigned at Date Recorded Not on file documented as of this encounter Last Filed Vital Signs Vital Sign Reading Time Taken Comments Blood Pressure 110/70 10/16/2016 9:12 AM Sourced from APD EDT Conversion Pulse - - Temperature - - Respiratory Rate - - Oxygen Saturation - - Inhaled Oxygen Concentration - - Weight - - Height - - Body Mass Index - - documented in this encounter Plan of Treatment Not on filedocumented as of this encounter Visit Diagnoses Not on filedocumented in this encounter
--- OUTSIDE RECORDS SUMMARY | 2020-07-20 13:15 | XMS_ITS | Encounter Summary ---
:1945 Author Organization [facility] [place] [address] Care Team Providers Name Role Phone MD Lopez Primary Care Provider Encounter Details Date Type Department Care Team Description 02/29/2016 Abstract Mireille Love Conversion Apd Conversion, Flowsheet Results Provider, [address] [place] [address] Social History Tobacco Use Types Packs/Day Years Used Date Former Smoker Alcohol Use Drinks/Week oz/Week Comments Yes 7 Cans of beer 7.0 Sex Assigned at Date Recorded Not on file documented as of this encounter Last Filed Vital Signs Vital Sign Reading Time Taken Comments Blood Pressure 108/62 02/29/2016 10:37 Sourced from AP D AM EST Conversion Pulse - - Temperature - - Respiratory Rate - - Oxygen Saturation - - Inhaled Oxygen - - Concentration Weight 61.8 kg (136 lb 3.9 02/29/2016 10:37 Sourced fro m APD oz) AM EST Conversion Height 178 cm (5' 10.08) 02/29/2016 10:37 Sourced from APD AM EST Conversion Body Mass Index 19.5 02/29/2016 10:37 AM EST documented in this encounter Plan of Treatment Not on filedocumented as of this encounter Visit Diagnoses Not on filedocumented in this encounter
--- OUTSIDE RECORDS SUMMARY | 2020-07-20 13:15 | XMS_ITS | Encounter Summary ---
:1945 Author Organization [place] [address] Care Team Providers Name Role Phone MD Lopez Primary Care Provider Encounter Details Date Type Department Care Team Description 09/29/2015 Abstract Mireille Love Conversion Apd Conversion, Flowsheet Results Provider, [address] [place] [address] Social History Tobacco Use Types Packs/Day Years Used Date Former Smoker Alcohol Use Drinks/Week oz/Week Comments Yes 7 Cans of beer 7.0 Sex Assigned at Date Recorded Not on file documented as of this encounter Last Filed Vital Signs Vital Sign Reading Time Taken Comments Blood Pressure 140/78 09/29/2015 10:45 AM Sourced from APD EDT Conversion Pulse [...]
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
--- OUTSIDE RECORDS SUMMARY | 2020-07-20 13:15 | XMS_ITS | Encounter Summary ---
:1945 Author Organization [facility] [place] [address] Care Team Providers Name Role Phone Katherine Marroquin MD Primary Care Provider Reason for Visit Reason Comments Follow-up Encounter Details Date Type Department Care Team Description 08/15/2016 Office Visit Dermatology at Lori Jack, JAMAL (actinic Road MD keratosis) [address] [place] [address] [facility] [phone] RD-DERMATOLOGY [place] [id number] [phone] Social History Tobacco Use Types Packs/Day Years Used Date Former Smoker Alcohol Use Drinks/Week oz/Week Comments Yes 7 Cans of beer 7.0 Sex Assigned at Date Recorded Not on file documented as of this encounter Progress Notes Yazan Jackson MD - 08/15/2016 10:30 AM EDT I was the supervising physician working with dermatology resident Dr. Lori Perez in the dermatology clinic during this patient visit. The level of Resident supervision for this patient visit wasindirect supervision with direct supervision immediately available. (definition: [facility] [place] [facility]ME Policy Statement on Graduate Medical Education, Supervision of Graduate Medical Trainees) I was immediately available to Dr. Perez for questions and discussion regarding this visit. I have reviewed her encounternote details and level of service. YAZAN JACKSON MD Staff Physician sel, Lori Brand MD - 08/15/2016 10:30 AM EDT DERMATOLOGY - ESTABLISHED PATIENT FOLLOW-UP Date of service: 08/15/2016 Sunil Rg : 1945 Dermatology Resident Note: Lori Perez MD, PGY4 Chief Complaint Patient presents with ??? Follow-up HPI: Mr. Sunil Rg is a 71 y.o. male. This is an established patient, last seen by me on 06/19/2016. Presents today to have a lesion on his left brow rechecked, it was previously treated with liquid nitrogen in June 2016. He believes it has since resolved. Skin History: Pigmented BCC, left clavicle s/p shave removal 01/2015 Seborrheic dermatitis of scalp Favor pigmented actinic keratosis; ddx includes seborrheic keratosis, doubt melanocytic lesion, leftlateral brow s/p liquid nitrogen Patient Active Problem List Diagnosis Code ??? [...] Since then, stomach has been very sensitive. Current Outpatient Prescriptions Medication Sig Dispense Refill ??? tamsulosin (FLOMAX) 0.4 mg Capsule, Sust. Release 24 hr Take 0.4 mg by mouth daily. ??? Miscellaneous Medical Supply Misc by Misc.(Non-Drug; Combo Route) route. Oral flower pollen for BPH ??? fish oil-omega-3 fatty acids 1,000 mg Capsule Take 2 g by mouth daily. ??? GLUC HWANG/CHONDR HWANG A NA/NA/C/SE (GLUCOSAM-SOD CHONDRO-VIT C-MICHELLE ORAL) Take 1,000 mg by mouth daily. ??? potassium chloride (K-DUR) 10 mEq tablet Take by mouth daily. ??? CIS Free Text Med - Ginkoba ??? CIS Free Text Med - calcium citrate with magnesium ??? aspirin 325 mg tablet ??? VITAMIN B COMPLEX ORAL ??? PYGEUM AFRICANUM BARK, BULK, MISC by [facility] [place]Non-Drug; Combo Route) route. Reported on 08/15/2016 ??? clobetasol (TEMOVATE) 0.05 % Solution Apply once to twice daily to scalp for 2 weeks then as needed for flares (Patient not taking: Reported on 06/19/2016) 50 mL 2 ??? ketoconazole (NIZORAL) 2 % Shampoo Use twice a week on scalp (Patient not taking: Reported on 06/19/2016) 120 mL 3 ??? zinc sulfate (ZINCATE) 220 (50) mg Capsule Take 220 mg by mouth daily. Reported on 08/15/2016 No current facility-administered medications for this visit. Allergies Allergen Reactions ??? Ciprofloxacin Rash Review of Systems: - General: Feels well. - Skin: As per HPI; no other skin concerns. Examination: - Constitutional: Patient was alert, well-appearing and in no noticeable distress. - Skin: A focused exam of the face was performed. Notable findings/Assessment/Plan: 1. Pigmented actinic keratosis, resolved s/p liquid nitrogen - Left lateral brow/mu-ism: normal appearing. - Previously treated with LN2 on 06/19/16. Appears to have resolved entirely. No further intervention needed. Follow-up: RTC in June 2017 for FBSE, sooner if needed. Reminder placed in scheduling system at last visit. Instructed to call if problems arise. I, CED LAU LPN and Cynthia Chávez, Clinical Scribe - am documenting this encounter acting as the scribe for and in the presence of Dr. Lori Perez. I performed the above scribed service and agree with the accuracy of the documentation of this encounter. Lori Perez MD, PGY4 Resident in Dermatology [facility] Staff foreign food cook specialty: Yazan Jackson MD Section of Dermatology [facility] documented in this encounter Plan of Treatment Not on filedocumented as of this encounter Visit Diagnoses Diagnosis AK (actinic keratosis) Actinic keratosis documented in this encounter
--- OUTSIDE RECORDS SUMMARY | 2020-07-20 13:15 | XMS_ITS | Encounter Summary ---
:1945 Author Organization [facility] [place] [address] Care Team Providers Name Role Phone MD Lopez Primary Care Provider Encounter Details Date Type Department Care Team Description 02/10/2017 Abstract M[facility] Conversion Apd Conversion, Flowsheet Results Provider, [address] [place] [address] Social History Tobacco Use Types Packs/Day Years Used Date Former Smoker Alcohol Use Drinks/Week oz/Week Comments Yes 7 Cans of beer 7.0 Sex Assigned at Date Recorded Not on file documented as of this encounter Last Filed Vital Signs Vital Sign Reading Time Taken Comments Blood Pressure 120/68 02/10/2017 2:41 PM Sourced from [facility] EDT Conversion Pulse - [...]
--- OUTSIDE RECORDS SUMMARY | 2020-07-20 13:15 | XMS_ITS | Encounter Summary ---
:1945 Author Organization [facility] Address [address] [place] [address] Care Team Providers Name Role Phone MD Lopez Primary Care Provider Encounter Details Date Type Department Care Team Description 04/19/2016 Interpretation Only Radiology at [facility] Ce nter None [address] [place] [address] Social History Tobacco Use Types Packs/Day Years Used Date Former Smoker Alcohol Use Drinks/Week oz/Week Comments Yes 7 Cans of beer 7.0 Sex Assigned at Date Recorded Not on file documented as of this encounter Plan of Treatment Not on filedocumented as of this encounter Procedures Procedure Name Priority Date/Time Associated Diagnosis Comme nts XR CLAVICLE RIGHT Routine 04/19/2016 12:04 PM Res ults for this EST procedure are i n the results section. documented in this encounter Results XR Clavicle Right (Generic) (04/19/2016 12:04 PM EST) Specimen Narrative Performed At [facility] Historical Result [facility] Principal Regenerator Operator: ??EMILIE ??STANISLAVR Y RIGHT CLAVICLE - TWO VIEWS: INDICATION: ??One week of acute pain, achy pain, limit ed range of motion. ??Pain rated 4 out of 10 on the pain scale. ??Patient had a fall 1 week ago. ??Limited range of motion. ??Clavicular pain and swelling. FINDINGS: No pneumothorax. ??No acute displaced rib fractures. ? ?The AC joint is not widened. ??No fractures or dislocations. ??Imaged lung apices are unremarkabl e. ??No acute displaced rib fractures. ?? Mild biapical pleural thickening incidentally noted. IMPRESSION: No acute traumatic skeletal injury identified. Emilie Castrejon MD [facility]/mn [id number] Procedure Note Department, Radiology - 10/12/2018 7:50 PM EDT [facility] Historical Result Principal Regenerator Operator: EMILIE CASTREJON RIGHT CLAVICLE - TWO VIEWS: INDICATION: One week of acute pain, ach y pain, limited range of motion. Pain rated 4 out of 10 on the pain scale. Patient had a fal l 1 week ago. Limited range of motion. Clavicular pain and swelling. FINDINGS: No pneumothorax. No acute displaced rib fractures. The AC joint is not widened. No fractures or dislocations. Imaged lung apices ar e unremarkable. No acute displaced rib fractures. Mild biapical pleural thickening incidentally noted. IMPRESSION: No acute traumatic skeletal injury identified. Emilie Castrejon MD [facility]/charles [id number] Performing Organization Address City/State/ZIP Code Phon e Number [facility] [place], [place] documented in this encounter Visit Diagnoses Not on filedocumented in this encounter
--- OUTSIDE RECORDS SUMMARY | 2020-07-20 13:15 | XMS_ITS | Encounter Summary ---
:1945 Author Organization [facility] [place] [address] Care Team Providers Name Role Phone MD Lopez Primary Care Provider Encounter Details Date Type Department Care Team Description 06/24/2016 Abstract Mireille Love Conversion Apd Conversion, Flowsheet Results Provider, [address] [place] [address] Social History Tobacco Use Types Packs/Day Years Used Date Former Smoker Alcohol Use Drinks/Week oz/Week Comments Yes 7 Cans of beer 7.0 Sex Assigned at Date Recorded Not on file documented as of this encounter Last Filed Vital Signs Vital Sign Reading Time Taken Comments Blood Pressure 124/68 06/24/2016 8:37 AM Sourced from [facility] EDT Conversion Pulse [...]
--- OUTSIDE RECORDS SUMMARY | 2020-07-20 13:15 | XMS_ITS | Encounter Summary ---
:1945 Author Organization [facility] [place] [address] Care Team Providers Name Role Phone MD Lopez Primary Care Provider Encounter Details Date Type Department Care Team Description 03/10/2015 Orders Only Radiology and Cardiology Apd Conversion, Results Results Provider, [address] [place] [phone] Social History Tobacco Use Types Packs/Day Years Used Date Former Smoker Alcohol Use Drinks/Week oz/Week Comments Yes 7 Cans of beer 7.0 Sex Assigned at Date Recorded Not on file documented as of this encounter Plan of Treatment Not on filedocumented as of this encounter Procedures Procedure Name Priority Date/Time Associated Diagnosis Comme nts LIPID PANEL (REFLEX Routine 03/10/2015 Results for this DIRECT LDL) procedure are i n the results section . documented in this encounter Results Lipid Panel (03/10/2015) Pathologist Sig nature Chol/HDL Ratio 2.7 (ExtL) 3.5 - 5.0 [facility] VLDL 8.2 (External [facility]) CONVERSION LDL Cholesterol 108 (External [facility]) CONVERSION HDL 70 (ExtH) 40 - 60 [facility] Triglycerides 41 (External 30 - 150 [facility]) CONVERSION Chol, Total 186 (External 50 - 200 [facility]) CONVERSION Specimen Performing Organization Address City/State/ZIP Code Phon e Number [facility] [address] [place], [place] [address] [facility] documented in this encounter Visit Diagnoses Not on filedocumented in this encounter
--- OUTSIDE RECORDS SUMMARY | 2020-07-20 13:15 | XMS_ITS | Encounter Summary ---
:1945 Author Organization [place] [address] Care Team Providers Name Role Phone MD Lopez Primary Care Provider Encounter Details Date Type Department Care Team Description 03/05/2016 Abstract Mireille Love Conversion Apd Conversion, Flowsheet Results Provider, [address] [place] [address] Social History Tobacco Use Types Packs/Day Years Used Date Former Smoker Alcohol Use Drinks/Week oz/Week Comments Yes 7 Cans of beer 7.0 Sex Assigned at Date Recorded Not on file documented as of this encounter Last Filed Vital Signs Vital Sign Reading Time Taken Comments Blood Pressure 120/68 03/05/2016 12:01 PM Sourced from [facility] EST Conversion Pulse - [...]
--- OUTSIDE RECORDS SUMMARY | 2020-07-20 13:15 | XMS_ITS | Encounter Summary ---
:1945 Author Organization [facility] [place] [address] Care Team Providers Name Role Phone MD Lopez Primary Care Provider Encounter Details Date Type Department Care Team Description 06/19/2016 Orders Only Radiology and Cardiology Apd Conversion, Results Results Provider, [address] [place] [phone] Social History Tobacco Use Types Packs/Day Years Used Date Former Smoker Alcohol Use Drinks/Week oz/Week Comments Yes 7 Cans of beer 7.0 Sex Assigned at Date Recorded Not on file documented as of this encounter Plan of Treatment Not on filedocumented as of this encounter Procedures Procedure Name Priority Date/Time Associated Diagnosis Comme nts CRP, ACUTE INFLAMMATION Routine 06/19/2016 Resu lts for this procedure are i n the results section . documented in this encounter Results CRP, acute inflammation (06/19/2016) Pathologist Sig nature CRP (mg/dL) < 0.2 (External 0 - 0.9 [facility]) CONVERSION Specimen Performing Organization Address City/State/ZIP Code Phon e Number [facility] [address] [place], [place] [address] [facility] documented in this encounter Visit Diagnoses Not on filedocumented in this encounter
--- OUTSIDE RECORDS SUMMARY | 2020-07-20 13:15 | XMS_ITS | Encounter Summary ---
:1945 Author Organization [facility] [place] [address] Care Team Providers Name Role Phone MD Lopez Primary Care Provider Encounter Details Date Type Department Care Team Description 10/31/2015 Orders Only Radiology and Cardiology Apd Conversion, Results Results Provider, [address] [place] [phone] Social History Tobacco Use Types Packs/Day Years Used Date Former Smoker Alcohol Use Drinks/Week oz/Week Comments Yes 7 Cans of beer 7.0 Sex Assigned at Date Recorded Not on file documented as of this encounter Plan of Treatment Not on filedocumented as of this encounter Procedures Procedure Name Priority Date/Time Associated Diagnosis Comme nts LYME IGG & IGM Routine 10/31/2015 Results for t his ANTIBODY procedure are i n the results section . documented in this encounter Results Lyme IgG & IgM Antibody (10/31/2015) Pathologist Sig nature Lyme Antibody 3.93 (ExtH) 0.00 - 0.74 [facility] Specimen Performing Organization Address City/State/ZIP Code Phon e Number [facility] [address] [place], [place] [address] [facility] documented in this encounter Visit Diagnoses Not on filedocumented in this encounter
--- OUTSIDE RECORDS SUMMARY | 2020-07-20 13:15 | XMS_ITS | Encounter Summary ---
:1945 Author Organization [facility] [place] [address] Care Team Providers Name Role Phone MD Lopez Primary Care Provider Encounter Details Date Type Department Care Team Description 02/19/2016 Orders Only Radiology and Cardiology Apd Conversion, Results Results Provider, [address] [place] [phone] Social History Tobacco Use Types Packs/Day Years Used Date Former Smoker Alcohol Use Drinks/Week oz/Week Comments Yes 7 Cans of beer 7.0 Sex Assigned at Date Recorded Not on file documented as of this encounter Plan of Treatment Not on filedocumented as of this encounter Procedures Procedure Name Priority Date/Time Associated Diagnosis Comme nts CRP, ACUTE INFLAMMATION Routine 02/19/2016 Resu lts for this procedure are i n the results section . documented in this encounter Results CRP, acute inflammation (02/19/2016) Pathologist Sig nature CRP (mg/dL) 4.4 (ExtH) 0 - 0.9 [facility] Specimen Performing Organization Address City/State/ZIP Code Phon e Number [facility] [address] [place], [place] [address] [facility] documented in this encounter Visit Diagnoses Not on filedocumented in this encounter
--- OUTSIDE RECORDS SUMMARY | 2020-07-20 13:15 | XMS_ITS | Encounter Summary ---
:1945 Author Organization [place] [address] Care Team Providers Name Role Phone MD Lopez Primary Care Provider Encounter Details Date Type Department Care Team Description 02/23/2016 Abstract Mireille Love Conversion Apd Conversion, Flowsheet Results Provider, [address] [place] [address] Social History Tobacco Use Types Packs/Day Years Used Date Former Smoker Alcohol Use Drinks/Week oz/Week Comments Yes 7 Cans of beer 7.0 Sex Assigned at Date Recorded Not on file documented as of this encounter Last Filed Vital Signs Vital Sign Reading Time Taken Comments Blood Pressure 108/70 02/23/2016 10:34 Sourced from [facility] AM EST Conversion Pulse - - Temperature - - Respiratory Rate - - Oxygen Saturation - - Inhaled Oxygen - - Concentration Weight 60.5 kg (133 lb 6.1 02/23/2016 10:34 Sourced fro m [facility] oz) AM EST Conversion Height - - Body Mass Index 19.09 02/27/2015 2:57 PM EST documented in this encounter Plan of Treatment Not on filedocumented as of this encounter Visit Diagnoses Not on filedocumented in this encounter
--- OUTSIDE RECORDS SUMMARY | 2020-07-20 13:15 | XMS_ITS | Encounter Summary ---
:1945 Author Organization [facility] [place] [address] Care Team Providers Name Role Phone MD Lopez Primary Care Provider Encounter Details Date Type Department Care Team Description 02/27/2016 Abstract Mireille Love Conversion Apd Conversion, Flowsheet Results Provider, [address] [place] [address] Social History Tobacco Use Types Packs/Day Years Used Date Former Smoker Alcohol Use Drinks/Week oz/Week Comments Yes 7 Cans of beer 7.0 Sex Assigned at Date Recorded Not on file documented as of this encounter Last Filed Vital Signs Vital Sign Reading Time Taken Comments Blood Pressure 110/75 02/27/2016 2:09 Sourced from [facility] PM EST Conversion Pulse - - Temperature - - Respiratory Rate - - Oxygen Saturation - - Inhaled Oxygen - - Concentration Weight 60.5 kg (133 lb 6.1 02/27/2016 2:09 Sourced fro m [facility] oz) PM EST Conversion Height 178 cm (5' 10.08) 02/27/2016 2:09 Sourced from [facility] PM EST Conversion Body Mass Index 19.09 02/27/2016 2:09 PM EST documented in this encounter Plan of Treatment Not on filedocumented as of this encounter Visit Diagnoses Not on filedocumented in this encounter
--- OUTSIDE RECORDS SUMMARY | 2020-07-20 13:15 | XMS_ITS | Encounter Summary ---
:1945 Author Organization [facility] [place] [address] Care Team Providers Name Role Phone MD Lopez Primary Care Provider Encounter Details Date Type Department Care Team Description 04/17/2015 Abstract Mireille Love Conversion Apd Conversion, Flowsheet Results Provider, [address] [place] [address] Social History Tobacco Use Types Packs/Day Years Used Date Former Smoker Alcohol Use Drinks/Week oz/Week Comments Yes 7 Cans of beer 7.0 Sex Assigned at Date Recorded Not on file documented as of this encounter Last Filed Vital Signs Vital Sign Reading Time Taken Comments Blood Pressure 118/64 04/17/2015 8:51 Sourced from [facility] AM EST Conversion Pulse - - Temperature - - Respiratory Rate - - Oxygen Saturation - - Inhaled Oxygen - - Concentration Weight 63.8 kg (140 lb 10.5 04/17/2015 8:51 Sourced fr om [facility] oz) AM EST Conversion Height - - Body Mass Index 20.14 02/27/2015 2:57 PM EST documented in this encounter Plan of Treatment Not on filedocumented as of this encounter Visit Diagnoses Not on filedocumented in this encounter
--- OUTSIDE RECORDS SUMMARY | 2020-07-20 13:15 | XMS_ITS | Encounter Summary ---
:1945 Author Organization [facility] [address] Care Team Providers Name Role Phone MD Lopez Primary Care Provider Encounter Details Date Type Department Care Team Description 02/16/2016 Abstract Mireille Love Conversion Apd Conversion, Flowsheet Results Provider, [address] [place] [address] Social History Tobacco Use Types Packs/Day Years Used Date Former Smoker Alcohol Use Drinks/Week oz/Week Comments Yes 7 Cans of beer 7.0 Sex Assigned at Date Recorded Not on file documented as of this encounter Last Filed Vital Signs Vital Sign Reading Time Taken Comments Blood Pressure 116/63 02/16/2016 8:42 AM Sourced from [facility] EDT Conversion Pulse [...]
--- OUTSIDE RECORDS SUMMARY | 2020-07-20 13:16 | XMS_ITS | Encounter Summary ---
:1945 Author Organization [facility] Address [address] [place] [address] Care Team Providers Name Role Phone MD Lopez Primary Care Provider Encounter Details Date Type Department Care Team Description 09/23/2014 Orders Only Radiology and Cardiology Apd Conversion, Results Results Provider, [address] [place] [phone] Social History Tobacco Use Types Packs/Day Years Used Date Former Smoker Alcohol Use Drinks/Week oz/Week Comments Not Asked Sex Assigned at Date Recorded Not on file documented as of this encounter Plan of Treatment Not on filedocumented as of this encounter Procedures Procedure Name Priority Date/Time Associated Diagnosis Comme nts VITAMIN D, 25-HYDROXY Routine 09/23/2014 Result s for this procedure are i n the results section . documented in this encounter Results Vitamin D, 25-Hydroxy (09/23/2014) 25-OH Vit D Total 63.5 (External 30.0 - 100.0 [facility]) CONVERSION Specimen Performing Organization Address City/State/ZIP Code Phon e Number [facility] [address] [place], [place] [address] [facility] documented in this encounter Visit Diagnoses Not on filedocumented in this encounter
--- OUTSIDE RECORDS SUMMARY | 2020-07-20 13:16 | XMS_ITS | Encounter Summary ---
:1945 Author Organization [place] [address] Care Team Providers Name Role Phone MD Lopez Primary Care Provider Encounter Details Date Type Department Care Team Description 11/21/2014 Abstract Mireille Love Conversion Apd Conversion, Flowsheet Results Provider, [address] [place] [address] Social History Tobacco Use Types Packs/Day Years Used Date Former Smoker Alcohol Use Drinks/Week oz/Week Comments Not Asked Sex Assigned at Date Recorded Not on file documented as of this encounter Last Filed Vital Signs Vital Sign Reading Time Taken Comments Blood Pressure 102/58 11/21/2014 10:32 Sourced from [facility] AM EDT Conversion Pulse - - Temperature - - Respiratory Rate - - Oxygen Saturation - - Inhaled Oxygen - - Concentration Weight 62.9 kg (138 lb 10.7 11/21/2014 10:32 Sourced fr om [facility] oz) AM EDT Conversion Height - - Body Mass Index 20.18 10/23/2010 1:40 PM EDT documented in this encounter Plan of Treatment Not on filedocumented as of this encounter Visit Diagnoses Not on filedocumented in this encounter
--- OUTSIDE RECORDS SUMMARY | 2020-07-20 13:16 | XMS_ITS | Encounter Summary ---
:1945 Author Organization [facility] Address [address] [place] [address] Care Team Providers Name Role Phone MD Lopez Primary Care Provider Encounter Details Date Type Department Care Team Description 09/23/2014 Orders Only Radiology and Cardiology Apd Conversion, Results Results Provider, [address] [place] [phone] Social History Tobacco Use Types Packs/Day Years Used Date Former Smoker Alcohol Use Drinks/Week oz/Week Comments Not Asked Sex Assigned at Date Recorded Not on file documented as of this encounter Plan of Treatment Not on filedocumented as of this encounter Procedures Procedure Name Priority Date/Time Associated Diagnosis Comme nts PROLACTIN Routine 09/23/2014 Results for thi s procedure are in the resu lts section. documented in this encounter Results Prolactin (09/23/2014) Pathologist Sig nature Prolactin 5.2 (External Lab) 4.0 - 15.2 [facility] Specimen Performing Organization Address City/State/ZIP Code Phon e Number [facility] [address] [place], [place] [address] [facility] documented in this encounter Visit Diagnoses Not on filedocumented in this encounter
--- OUTSIDE RECORDS SUMMARY | 2020-07-20 13:16 | XMS_ITS | Encounter Summary ---
:1945 Author Organization [facility] Address One [facility] [place] [address] Care Team Providers Name Role Phone MD Lopez Primary Care Provider Encounter Details Date Type Department Care Team Description 12/22/2012 Interpretation Only Radiology at [facility] Ce nter None [address] [facility] [place] [phone] Social History Tobacco Use Types Packs/Day Years Used Date Former Smoker Alcohol Use Drinks/Week oz/Week Comments Not Asked Sex Assigned at Date Recorded Not on file documented as of this encounter Plan of Treatment Not on filedocumented as of this encounter Procedures Procedure Name Priority Date/Time Associated Diagnosis Comme nts XR SKULL COMPLETE Routine 12/22/2012 1:09 PM Res ults for this MIN 4 VIEWS EDT procedure are i n the results section. documented in this encounter Results XR Skull Complete Min 4 views (12/22/2012 1:09 PM EDT) Specimen Narrative Performed At [facility] Historical Result [facility] Principal Warehouse Manager: ??MILO ??MYRNA SKULL - FOUR VIEWS: CLINICAL HISTORY: ??A 67-year-old with bony growth, ri ght forehead. Metallic surgical wires project over the lateral orbits and a plate and screws projects over the region of the left inferior orbital wall. There is apparent dense soft tissue prominence at the anterior forehead region. ??Most of the nasal bones and associated soft tissue not identified. ??Correlation with clinical situation is recommended. To assess for reported bony growth at the right forehe ad, CT scan of the brain should be considered. Milo Norris MD Mckayla [id number] CC: Procedure Note Department, Radiology - 10/12/2018 12:36 PM EDT [facility] Historical Result Principal Warehouse Manager: MILO NORRIS SKULL - FOUR VIEWS: CLINICAL HISTORY: A 67-year-old with ana paula ny growth, right forehead. Metallic surgical wires project over the lateral orbits and a pl ate and screws projects over the region of the left inferior orbital wall. There is apparent dense soft tissue prom inence at the anterior forehead region. Most of the nasal bones and associated soft tissue n ot identified. Correlation with clinical situation is recommended. To assess for reported bony growth at th e right forehead, CT scan of the brain should be considered. Milo Norris MD Mckayla [id number] CC: Performing Organization Address City/State/ZIP Code Phon e Number AFFILIATED SITES RADIOLOGY [facility] [address] [place] [address] documented in this encounter Visit Diagnoses Not on filedocumented in this encounter
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
--- OUTSIDE RECORDS SUMMARY | 2020-07-20 13:16 | XMS_ITS | Encounter Summary ---
:1945 Author Organization [facility] [place] [address] Care Team Providers Name Role Phone MD Lopez Primary Care Provider Encounter Details Date Type Department Care Team Description 03/14/2012 Orders Only Radiology and Cardiology [facility] Conversion, Results Results Provider, [address] [place] [phone] Social History Tobacco Use Types Packs/Day Years Used Date Former Smoker Alcohol Use Drinks/Week oz/Week Comments Not Asked Sex Assigned at Date Recorded Not on file documented as of this encounter Plan of Treatment Not on filedocumented as of this encounter Procedures Procedure Name Priority Date/Time Associated Diagnosis Comme nts LIPID PANEL (REFLEX Routine 03/14/2012 Results for this DIRECT LDL) procedure are i n the results section . documented in this encounter Results Lipid Panel (03/14/2012) Pathologist Sig nature Chol/HDL Ratio 3.1 (ExtL) 3.5 - 5.0 [facility] CONVERSION VLDL 9.6 (External [facility]) CONVERSION LDL Cholesterol 101 (External [facility]) CONVERSION HDL 54 (External 40 - 60 [facility]) CONVERSION Triglycerides 48 (External 30 - 150 [facility]) CONVERSION Chol, Total 165 (External 0 - 200 [facility]) CONVERSION Specimen Performing Organization Address City/State/ZIP Code Phon e Number [facility] [address] [place], [place] [address] [facility] documented in this encounter Visit Diagnoses Not on filedocumented in this encounter
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
--- OUTSIDE RECORDS SUMMARY | 2020-07-20 13:16 | XMS_ITS | Encounter Summary ---
:1945 Author Organization [facility] [place] [address] Care Team Providers Name Role Phone MD Lopez Primary Care Provider Encounter Details Date Type Department Care Team Description 02/27/2015 Abstract [facility] Conversion [facility] Conversion, Flowsheet Results Provider, [address] [place] [address] Social History Tobacco Use Types Packs/Day Years Used Date Former Smoker Alcohol Use Drinks/Week oz/Week Comments Yes 7 Cans of beer 7.0 Sex Assigned at Date Recorded Not on file documented as of this encounter Last Filed Vital Signs Vital Sign Reading Time Taken Comments Blood Pressure 108/60 02/27/2015 2:57 Sourced from [facility] D PM EST Conversion Pulse - - Temperature - - Respiratory Rate - - Oxygen Saturation - - Inhaled Oxygen - - Concentration Weight 66 kg (145 lb 8.1 02/27/2015 2:57 Sourced from [facility] oz) PM EST Conversion Height 178 cm (5' 10.08) 02/27/2015 2:57 Sourced from [facility] PM EST Conversion Body Mass Index 20.83 02/27/2015 2:57 PM EST documented in this encounter Plan of Treatment Not on filedocumented as of this encounter Visit Diagnoses Not on filedocumented in this encounter
--- OUTSIDE RECORDS SUMMARY | 2020-07-20 13:16 | XMS_ITS | Encounter Summary ---
:1945 Author Organization [facility] Address [address] [place] [address] Care Team Providers Name Role Phone MD Lopez Primary Care Provider Encounter Details Date Type Department Care Team Description 03/14/2012 Orders Only Radiology and Cardiology Apd Conversion, Results Results Provider, [address] [place] [phone] Social History Tobacco Use Types Packs/Day Years Used Date Former Smoker Alcohol Use Drinks/Week oz/Week Comments Not Asked Sex Assigned at Date Recorded Not on file documented as of this encounter Plan of Treatment Not on filedocumented as of this encounter Procedures Procedure Name Priority Date/Time Associated Diagnosis Comme nts TESTOSTERONE, TOTAL Routine 03/14/2012 Results for this procedure are i n the results section . documented in this encounter Results Testosterone, total (03/14/2012) Pathologist Sig nature Testo Total 347 (ExtL) 348 - 1,197 [facility] CONVERSION Specimen Performing Organization Address City/State/ZIP Code Phon e Number [facility] [address] [place], [place] [address] [facility] documented in this encounter Visit Diagnoses Not on filedocumented in this encounter
--- OUTSIDE RECORDS SUMMARY | 2020-07-20 13:16 | XMS_ITS | Encounter Summary ---
:1945 Author Organization [facility] [place] [address] Care Team Providers Name Role Phone MD Lopez Primary Care Provider Encounter Details Date Type Department Care Team Description 09/23/2014 Orders Only Radiology and Cardiology Apd Conversion, Results Results Provider, [address] [place] [phone] Social History Tobacco Use Types Packs/Day Years Used Date Former Smoker Alcohol Use Drinks/Week oz/Week Comments Not Asked Sex Assigned at Date Recorded Not on file documented as of this encounter Plan of Treatment Not on filedocumented as of this encounter Procedures Procedure Name Priority Date/Time Associated Diagnosis Comme nts VITAMIN B12 Routine 09/23/2014 Results for thi s procedure are in the resu lts section. documented in this encounter Results Vitamin B12 (09/23/2014) Pathologist Sig nature Vitamin B-12 1,147 (Ext) 211 - 946 [facility] Specimen Performing Organization Address City/State/ZIP Code Phon e Number [facility] [address] [place], [place] [address] [facility] documented in this encounter Visit Diagnoses Not on filedocumented in this encounter
--- OUTSIDE RECORDS SUMMARY | 2020-07-20 13:16 | XMS_ITS | Encounter Summary ---
:1945 Author Organization [facility] [place] [address] Care Team Providers Name Role Phone MD Lopez Primary Care Provider Encounter Details Date Type Department Care Team Description 09/20/2014 Abstract [facility] Conversion Apd Conversion, Flowsheet Results Provider, [address] [place] [address] Social History Tobacco Use Types Packs/Day Years Used Date Former Smoker Alcohol Use Drinks/Week oz/Week Comments Not Asked Sex Assigned at Date Recorded Not on file documented as of this encounter Last Filed Vital Signs Vital Sign Reading Time Taken Comments Blood Pressure 122/68 09/20/2014 10:55 Sourced from AP D AM EDT Conversion Pulse - - Temperature - - Respiratory Rate - - Oxygen Saturation - - Inhaled Oxygen - - Concentration Weight 63 kg (138 lb 14.2 09/20/2014 10:55 Sourced from APD oz) AM EDT Conversion Height - - Body Mass Index 20.22 10/23/2010 1:40 PM EDT documented in this encounter Plan of Treatment Not on filedocumented as of this encounter Visit Diagnoses Not on filedocumented in this encounter
--- OUTSIDE RECORDS SUMMARY | 2020-07-20 13:16 | XMS_ITS | Encounter Summary ---
:1945 Author Organization [facility] [place] [address] Care Team Providers Name Role Phone Katherine Marroquin MD Primary Care Provider Encounter Details Date Type Department Care Team Description 01/16/[address] [facility] Lori Perez MD [address] [place] [address] [facility] [address]-DERMATOLOGY [phone] [place], [place] [address] [phone] Social History Tobacco Use Types Packs/Day Years Used Date Former Smoker Alcohol Use Drinks/Week oz/Week Comments Yes 7 Cans of beer 7.0 Sex Assigned at Date Recorded Not on file documented as of this encounter Miscellaneous Notes Telephone Encounter - Lori Perez MD - 01/20/2015 8:16 AM EDT I called and spoke with Mr. Rg regarding treatment options, after further discussion with Dr. Solares. We discussed again ED&C versus clinical surveillance, since the edges of the biopsy were narrowly negative. Pt would prefer clinical surveillance. I advised him to watch out for regrowth or t enderness at the site and seek re-evaluation if such occurs. Otherwise we will plan for a yearly full skin exam. Amada, can you please cancel Mr. Rg's appointment with me today at 4:40? Thank you very much. elephone Encounter - Lori Perez MD - 01/19/2015 4:31 PM EDT I called hoping to re-discuss ED&C vs clinical monitoring and make sure I understand what pt prefers. No answer at home # and pt not present at work #. Telephone Encounter - Lori Perez MD - 01/16/2015 4:34 PM EDT I called with biopsy results, which showed a pigmented BCC on the left clavicle, narrowly negative in the examined sections. I discussed treatment options including observation, ED&C, and excisionand recommended ED&C. Pt is in agreement with this plan and will expect a phone call to schedule. He asked which pharmacy received his prescriptions and I informed him it was the [facility] in [facility]. documented in this encounter Plan of Treatment Not on filedocumented as of this encounter Visit Diagnoses Not on filedocumented in this encounter
--- OUTSIDE RECORDS SUMMARY | 2020-07-20 13:16 | XMS_ITS | Encounter Summary ---
:1945 Author Organization [facility] [place] [address] Care Team Providers Name Role Phone Katherine Marroquin MD Primary Care Provider Encounter Details Date Type Department Care Team Description 12/21/2014 Surgery Gastroenterology at [facility] Ryne Stevens UPPER GASTROINTESTINAL [facility] Wallace Mosqueda MD ENDOSCOPY,[place] [address] [facility] SINGLE OR MULTIPLE ([facility] [phone] Cm) [place] [address] [phone] Social History Tobacco Use Types Packs/Day Years Used Date Former Smoker Alcohol Use Drinks/Week oz/Week Comments Yes 7 Cans of beer 7.0 Sex Assigned at Date Recorded Not on file documented as of this encounter Last Filed Vital Signs Vital Sign Reading Time Taken Comments Blood Pressure 99/57 12/21/2014 12:49 PM EDT Pulse 54 12/21/2014 12:49 PM EDT Temperature 36.6 ??C (97.9 ??F) 12/21/2014 10:30 AM EDT Respiratory Rate 12 12/21/2014 12:49 PM EDT Oxygen Saturation 98% 12/21/2014 12:49 PM EDT Inhaled Oxygen Concentration - - Weight - - Height - - Body Mass Index - - documented in this encounter Discharge Instructions Boyd Melgar RN - 12/21/2014 UPPER GI ENDOSCOPY WHAT TO EXPECT AFTER THE PROCEDURE Medications You may have a mild sore throat. Ice chips, popsicles, over the counter throat lozenges or spray may help numb your throat. This procedure should not cause a fever. Call your healthcare provider or seek immediate medical attention if: You have trouble swallowing. You have belly pain. Your stools are black or tarlike or have streaks of blood. You are sick to your stomach or cannot keep fluids down. Watch closely for changes in your health, and be sure to contact your doctor IF Your throat still hurts after a day or two You do not get better as expected. Colonoscopy What to expect after the procedure You may feel a little more gassy or bloated than usual. This is normal. You should expect the return of normal bowel function in the 2 to 3 days. Activity Because of the sedation that you received your judgement and reaction time are effected ?? Go home and rest quietly for the remainder of the day. You may resume your normal activities tomorrow. ?? Change from one position to the next slowly. You may lose your balance unexpectedly ?? Be careful on stairs, as you may be unsteady on your feet FOR THE NEXT 24 HRS ?? DO NOT DRIVE OR OPERATE ANY MACHINERY ?? DO NOT DRINK ALCOHOLIC BEVERAGES ?? DO NOT SIGN LEGAL DOCUMENTS ?? If you are a smoker: DO NOT SMOKE WHILE YOU ARE ALONE Diet ?? Start by eating small portions of foods that ordinarily will not upset your stomach . Avoid gas producing foods for the next few days ?? Be gentle with what you choose to start with ?? Drink plenty of fluids ( unless your doctor has told you not to). IV SITE-- slight redness, or tenderness is normal. You can use warm compresses if you become concerned. If the tenderness +/or redness increases or foul drainage and a red streak occurs, please contact your PCP immediately When shoud you call for help? Call 911 anytime you think you may need emergency care. For example If you pass out ( loss of consciousness) If you pass maroon or bloody stools If you have severe belly pain Call your doctor now or seek immediate medical care If your stools are black and tarlike If your stools have streaks of blood, but you did not have a biopsy or any polyps removed If you have belly pain, or your belly is swollen and firm If you vomit If you have a fever If you are very dizzy Watch closely for changes in your health, and be sure to contact your doctor if you have any problems Your doctor will let you know when you will need your next colonoscopy. The results of your test and your risk for colorectal cancer will help your doctor decide how often you need to be checked. Friday-Friday Same Day Endo [phone]-[phone] Otherwise contact [phone] and ask to speak to the machine tool dresser coil connector repairer Follow up care is a mittal part of your treatment and safety. Be sure to make and go to all appointments, and call your doctor if you are having problems. Discharge instructions reviewed with patient who expresses understanding documented in this encounter Medications at Time of Discharge Medication Sig Dispensed Refills Start Date End Date fish oil-omega-3 fatty Take 2 g by mouth 0 acids 1,000 mg Capsule daily. aspirin 325 mg tablet 0 01/02/2010 zinc sulfate (ZINCATE) Take 220 mg by mouth 0 04/21/2019 220 (50) mg Capsule daily. Reported on 08/15/2016 GLUC HWANG/CHONDR HWANG A Take 1,000 mg by 0 04/21/2019 NA/NA/C/SE (GLUCOSAM-SOD mouth daily. CHONDRO-VIT C-MICHELLE ORAL) potassium chloride Take by mouth daily. 0 04/21/2019 (K-DUR) 10 mEq tablet CIS Free Text Med - 0 01/02/201004/21 Ginkoba CIS Free Text Med - 0 01/02/201004/21 calcium citrate with magnesium VITAMIN B COMPLEX ORAL 0 01/02/2010 documented as of this encounter H&P Notes Ryne Stevens MD - 12/21/2014 10:42 AM EDT Gastroenterology and Hepatology Pre-Procedure History and Physical Exam Procedure: Colonoscopy: EGD Indication: anemia Patient Active Problem List Diagnosis Code ??? Right foot pain 729.5 EXAM: HEENT: Airway examined, oropharynx clear Mallampati Score: II (soft palate, uvula, fauces visible) LUNGS: Clear to auscultation HEART: Regular rate and rhythm, normal S1, S2 ABDOMEN: Normal bowel sounds, soft, non tender, non distended, A/P Proceed with the planned endoscopic procedure. ASA 2 - Patient with mild systemic disease with no functional limitations Sedation Plan: moderate (conscious sedation) Risks and benefits of the procedure explained to the patient. Consent signed. documented in this encounter Plan of Treatment Not on filedocumented as of this encounter Procedures Procedure Name Priority Date/Time Associated Comments Diagnosis SURGICAL PATHOLOGY Routine 12/21/2014 12:41 Resul ts for this REPORT PM EDT procedure are i n the results section. SPECIMEN TO PATHOLOGY Routine 12/21/2014 12:41 Re sults for this PM EDT procedure are i n the results section. SPECIMEN TO PATHOLOGY Routine 12/21/2014 12:41 Re sults for this PM EDT procedure are i n the results section. UPPER GI ENDOSCOPY Routine 12/21/2014 11:40 Resul ts for this AM EDT procedure are i n the results section. COLONOSCOPY Routine 12/21/2014 11:39 Results for this AM EDT procedure are i n the results section. COLONOSCOPY, DIAGNOSTIC 12/21/2014 11:37 Anemia AM EDT UPPER GASTROINTESTINAL 12/21/2014 11:37 Anemia ENDOSCOPY,WITH BIOPSY AM EDT SINGLE OR MULTIPLE (WRVU 2.49) documented in this encounter Results Surgical Pathology Report (12/21/2014 12:41 PM EDT) Surgical Pathology The signing pathologist has (i) examined the relevant preparation(s) [facility] specimen(s) and (ii) rendered or confirmed the diagnos is(es). Accession Number: [id number] . ? Surgical Pathology DIAGNOSIS A - Duodenum, biopsy: ?Duodenal mucosa within normal limits. B - Irregular z line, biopsy: ? 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 with intestinal metaplasia, ?? see note. 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 ?? No dysplasia is identified. CR-0 12/22/14 GRD 12/22/14 Verified by: ? Yaquelin YOO, Jimmie Dallas ?Pathologist ?(Electronic Sig nature) The attending pathologist whose signature appears on t his report has reviewed all diagnostic slides and has edited the peggy s and/or microscopic portion of the report in yuly dering the final pathologic diagnosis. CLINICAL INFORMATION Specimen Submitted: A - Bx of duodenum r/o sprue B - Bx of irregular z line r/o milton ??'s Clinical History: Patient with anemia Clinical Diagnosis: Same SPECIMEN PROCESSING A - Labeled/Fixative: Biopsy of duodenum, rule out spr ue, formalin. Quantity/Size: Eight, 0.2-0.3 cm. Tissue Description: Soft, yellow-aly tissue. Sections/Processing: (T2) B - Labeled/Fixative: Biopsy of irregular Z line, rule out Milton ?'s, formalin. Quantity/Size: Three, 0.2-0.3 cm. Tissue Description: Soft, yellow-aly tissue. Sections/Processing: (T1) ??ejr Specimen Performing Organization Address City/State/ZIP Code Phon e Number [address] [facility] SPECIMEN TO PATHOLOGY (12/21/2014 12:41 PM EDT) Specimen AP Specimen Narrative Performed At Specimen requisition ordered. ??Separate Pathology rep ort to follow [facility] Performing Organization Address City/State/ZIP [place] [address] CERNER MILLENNIUM SPECIMEN TO PATHOLOGY (12/21/2014 12:41 PM EDT) Specimen AP Specimen Narrative Performed At Specimen requisition ordered. ??Separate Pathology rep ort to follow [facility] Performing Organization Address City/State/ZIP Code Phon e Number [address] CERNER MILLENNI[facility] UPPER GI ENDOSCOPY (12/21/2014 11:40 AM EDT) UPPER GI ENDOSCOPY [facility] Endoscopy Patient Name: Sunil Rg ? Procedure Date: 12/21/2014 11:40 AM ? Date of : 1945 ? Age: 69 ? Order #: [id number] ? Procedure: ? Upper GI endoscopy Indications: ? Anemia Providers: ? Ryne Stevens MD, Mirta Lewis, ? RN, Diana jacobo RN Referring : ?Ashanti Matt MD Medicines: ? Midazolam 3 mg IV, Fentanyl 150 ? micrograms IV Complications: ? No immediate complications. Procedure: ? The procedure, indications, benefits, ? risks and alternatives were explained ? to the patient. Franciscai jose ? discussed were potentia l ? complications including , but not ? limited to, bleeding, p erforation, ? infection, missing a ca ncer, and ? adverse medication reac tions. The ? Endoscope was introduce d through the ? mouth, and advanced to the third part ? of duodenum. The patien t tolerated ? the procedure well. The upper GI ? endoscopy was accomplis hed without ? difficulty. The patient tolerated the ? procedure well. ? Findings: ? The Z-line was irregular and was found 39 cm fr om the ? incisors. Biopsies were taken with a cold force ps for ? histology. ? There was no esophagitis. ? Small hiatal hernia from 39-41 cm ? The stomach was normal. ? The examined duodenum was normal. Biopsies for ? histology were taken with a cold forceps for fo r ? evaluation of celiac disease. ? Impression: ?- Z-line irregular, 39 cm fr om the ? incisors. Biopsied. ? - Normal stomach. ? - Normal examined duode num. Biopsied. Recommendation: ?- Await pathology results. ? Ryne Stevens MD 12/21/2014 11:57 AM This report has been signed electronically. Number of Addenda: 0 Note Initiated On: 12/21/2014 11:40 AM Specimen Performing Organization Address City/State/ZIP Code Phon e Number [facility] COLONOSCOPY (12/21/2014 11:39 AM EDT) Pathologist Sig nature COLONOSCOPY [facility] Endoscopy Patient Name: Sunil Rg ? Procedure Date: 12/21/2014 11:39 AM ? Date of : 1945 ? Age: 69 ? Order #: [id number] ? Procedure: ? Colonoscopy Indications: ? Anemia, Follow-up for history of ? adenomatous polyps in t colon Providers: ? Ryne Stevens MD, Mirta Lewis, ? RN, Diana jacobo RN Referring : ?Ashanti aMtt MD Medicines: ? Midazolam 3 mg IV, Fentanyl 100 ? micrograms IV Complications: ? No immediate complications. Procedure: ? The procedure, indications, benefits, ? risks and alternatives were explained ? to the patient. Elton garcia ? discussed were potentia l ? complications including , but not ? limited to, bleeding, p erforation, ? infection, missing a ca ncer, and ? adverse medication reac tions. The ? patient was placed in t he left ? lateral decubitus posit ion, and a ? digital rectal exam was performed. ? The Colonoscope was ins erted in the ? anus and under direct v isualization, ? advanced to the termina l ileum. ? Careful inspection was made as the ? colonoscope was witha aysha. The ? colonoscopy was perform ed without ? difficulty. The patient tolerated the ? procedure well. The cleo keshia of the ? bowel preparation was e xcellent. ? Scope withdrawal time w as 12 minutes. ? Findings: ? A few small and large-mouthed diverticula were found ? in the sigmoid colon and in the transverse colo n. ? The terminal ileum appeared normal. ? Internal hemorrhoids were found during retrofle xion. ? The hemorrhoids were medium-sized. ? Impression: ?- Diverticulosis in the sigm oid colon ? and in the transverse c olon. ? - The examined portion of the ileum ? was normal. ? - Internal hemorrhoids. ? - No specimens collecte d. Recommendation: ?- Repeat colonoscopy in 7 year s for ? surveillance. ? Ryne Stevens MD 12/21/2014 12:47 PM This report has been signed electronically. Number of Addenda: 0 Note Initiated On: 12/21/2014 11:39 AM Specimen Performing Organization Address City/State/ZIP Code Phon e Number [facility] documented in this encounter Visit Diagnoses Not on filedocumented in this encounter Administered Medications Inactive Administered Medications - up to 3 most recent administrations Medication Order MAR Action Action Date Dose Rate Site fentaNYL 50 mcg/mL multi-dose Given 12/21/2014 12:07 PM EDT 50 m cg injection ONCE PRN, Starting Fri12/21/14 at 1142, Until Fri12/21/14 at 1823, Intra-Operative (Intra-Procedure), Routine Given 12/21/2014 11:58 AM EDT 50 mcg Given 12/21/2014 11:49 AM EDT 50 mcg midazolam (PF) (VERSED) 1 mg/mL multi-dose Given 12/21/2014 12:1 0 PM EDT 1 mg injection ONCE PRN, Starting Fri12/21/14 at 1142, Until Fri12/21/14 at 1823, Intra-Operative (Intra-Procedure), Routine Given 12/21/2014 12:07 PM EDT 1 mg Given 12/21/2014 11:58 AM EDT 1 mg documented in this encounter
--- OUTSIDE RECORDS SUMMARY | 2020-07-20 13:16 | XMS_ITS | Encounter Summary ---
:1945 Author Organization [facility] Address [address] [place] [address] Care Team Providers Name Role Phone MD Lopez Primary Care Provider Encounter Details Date Type Department Care Team Description 03/10/2015 Orders Only Radiology and Cardiology Apd Conversion, Results Results Provider, [address] [place] [phone] Social History Tobacco Use Types Packs/Day Years Used Date Former Smoker Alcohol Use Drinks/Week oz/Week Comments Yes 7 Cans of beer 7.0 Sex Assigned at Date Recorded Not on file documented as of this encounter Plan of Treatment Not on filedocumented as of this encounter Procedures Procedure Name Priority Date/Time Associated Diagnosis Comme nts TSH Routine 03/10/2015 Results for thi s procedure are in the resu lts section. documented in this encounter Results TSH (03/10/2015) Pathologist Sig nature TSH 2.660 (External 0.358 - 3.740 [facility]) CONVERSION Specimen Performing Organization Address City/State/ZIP Code Phon e Number [facility] CONVERSION [address] [place], [place] [address] [facility] CONVERSION documented in this encounter Visit Diagnoses Not on filedocumented in this encounter
--- OUTSIDE RECORDS SUMMARY | 2020-07-20 13:16 | XMS_ITS | Encounter Summary ---
:1945 Author Organization [facility] Address [address] [place] [address] Care Team Providers Name Role Phone MD Lopez Primary Care Provider Encounter Details Date Type Department Care Team Description 03/10/2015 Orders Only Radiology and Cardiology Apd Conversion, Results Results Provider, [address] [place] [phone] Social History Tobacco Use Types Packs/Day Years Used Date Former Smoker Alcohol Use Drinks/Week oz/Week Comments Yes 7 Cans of beer 7.0 Sex Assigned at Date Recorded Not on file documented as of this encounter Plan of Treatment Not on filedocumented as of this encounter Procedures Procedure Name Priority Date/Time Associated Diagnosis Comme nts PSA (ULTRASENSITIVE) Routine 03/10/2015 Results for this procedure are i n the results section . documented in this encounter Results PSA (03/10/2015) Pathologist Sig nature PSA Total 1.32 (External 0 - 3.99 [facility] (Ultrasensitive) Lab) CONVERSION Specimen Performing Organization Address City/State/ZIP Code Phon e Number [facility] CONVERSION [address] [place], [place] [address] [facility] CON[facility] documented in this encounter Visit Diagnoses Not on filedocumented in this encounter
--- OUTSIDE RECORDS SUMMARY | 2020-07-20 13:16 | XMS_ITS | Encounter Summary ---
:1945 Author Organization [facility] Address [address] [place] [address] Care Team Providers Name Role Phone MD Lopez Primary Care Provider Encounter Details Date Type Department Care Team Description 03/14/2012 Orders Only Radiology and Cardiology Apd Conversion, Results Results Provider, [address] [place] [phone] Social History Tobacco Use Types Packs/Day Years Used Date Former Smoker Alcohol Use Drinks/Week oz/Week Comments Not Asked Sex Assigned at Date Recorded Not on file documented as of this encounter Plan of Treatment Not on filedocumented as of this encounter Procedures Procedure Name Priority Date/Time Associated Diagnosis Comme nts TSH Routine 03/14/2012 Results for thi s procedure are in the resu lts section. documented in this encounter Results TSH (03/14/2012) Pathologist Sig nature TSH 1.460 (External 0.358 - 3.74 [facility]) CONVERSION Specimen Performing Organization Address City/State/ZIP Code Phon e Number [facility] CONVERSION [address] [place], [place] [address] [facility] documented in this encounter Visit Diagnoses Not on filedocumented in this encounter
--- OUTSIDE RECORDS SUMMARY | 2020-07-20 13:16 | XMS_ITS | Encounter Summary ---
:1945 Author Organization [facility] Address [address] [place] [address] Care Team Providers Name Role Phone MD Lopez Primary Care Provider Encounter Details Date Type Department Care Team Description 03/14/2012 Orders Only Radiology and Cardiology Apd Conversion, Results Results Provider, [address] [place] [phone] Social History Tobacco Use Types Packs/Day Years Used Date Former Smoker Alcohol Use Drinks/Week oz/Week Comments Not Asked Sex Assigned at Date Recorded Not on file documented as of this encounter Plan of Treatment Not on filedocumented as of this encounter Procedures Procedure Name Priority Date/Time Associated Diagnosis Comme nts VITAMIN B12 Routine 03/14/2012 Results for thi s procedure are in the resu lts section. documented in this encounter Results Vitamin B12 (03/14/2012) Pathologist Sig nature Vitamin B-12 858 (External Lab) [phone] [facility] DAY CONVERSION Specimen Performing Organization Address City/State/ZIP Code Phon e Number [facility] CONVERSION [address] [place], [place] [address] [facility] CONVERSION documented in this encounter Visit Diagnoses Not on filedocumented in this encounter
--- OUTSIDE RECORDS SUMMARY | 2020-07-20 13:16 | XMS_ITS | Encounter Summary ---
:1945 Author Organization [facility] Address [address] [facility] [place] [address] Care Team Providers Name Role Phone MD Lopez Primary Care Provider Encounter Details Date Type Department Care Team Description 09/23/2014 Orders Only Radiology and Cardiology Apd Conversion, Results Results Provider, [address] [place] [phone] Social History Tobacco Use Types Packs/Day Years Used Date Former Smoker Alcohol Use Drinks/Week oz/Week Comments Not Asked Sex Assigned at Date Recorded Not on file documented as of this encounter Plan of Treatment Not on filedocumented as of this encounter Procedures Procedure Name Priority Date/Time Associated Diagnosis Comme nts CORTISOL Routine 09/23/2014 Results for thi s procedure are in the resu lts section. documented in this encounter Results Cortisol (09/23/2014) Pathologist Sig nature Cortisol 14.1 (External Lab) 2.3 - 19.4 [facility] DAY CONVERSION Specimen Performing Organization Address City/State/ZIP Code Phon e Number [facility] DAY CONVERSION [address] [place], [place] [address] [facility] DAY CONVERSION documented in this encounter Visit Diagnoses Not on filedocumented in this encounter
--- OUTSIDE RECORDS SUMMARY | 2020-07-20 13:16 | XMS_ITS | Encounter Summary ---
:1945 Author Organization [facility] [place] [address] Care Team Providers Name Role Phone Katherine Marroquin MD Primary Care Provider Encounter Details Date Type Department Care Team Description 12/21/2014 Hospital Encounter Gastroenterology at [facility] Ryne Stevens, [facility] [place] [address] [facility] [phone] [place] [id number] [phone] Social History Tobacco Use Types Packs/Day Years [...] to be checked. Friday-Friday Same Day Endo [phone]-[id number] Otherwise contact [phone] and ask to speak to the case manager specialist electronic engineering technician Follow up care is a mittal part [...] (i) examined the relevant preparation(s) for the [facility] Report specimen(s) and (ii) rendered or confirmed the diagnos is(es). Accession Number: [id number] . ? Surgical Pathology DIAGNOSIS A - [...] Organization Address City/State/[place] [address] CERNER MILLENNIUM SPECIMEN TO PATHOLOGY (12/21/2014 12:41 PM EDT) Specimen AP Specimen Narrative Performed At Specimen requisition ordered. ??Separate Pathology rep ort to follow [facility] Performing Organization Address City/[facility]/[place] [address] CERNER MILLENNIUM SPECIMEN TO PATHOLOGY (12/21/2014 12:41 PM EDT) Specimen AP Specimen Narrative Performed At Specimen requisition ordered. ??Separate Pathology rep ort to follow [facility] Performing Organization Address City/State/[place] [address] CERNER MILLENNIUM UPPER GI ENDOSCOPY (12/21/2014 11:40 AM EDT) UPPER GI ENDOSCOPY [facility] Patient Name: Sunil Rg ? Procedure Date: 12/21/2014 11:40 AM ? Date of : 1945 ? Age: 69 ? Order #: [id number] ? Procedure: ? Upper GI endoscopy Indications: ? Anemia Providers: ? Rnye Stevens MD, Mirta Lewis, ? RN, Diana [...] 11:39 AM EDT) Pathologist Sig nature COLONOSCOPY [facility] End[facility] Patient Name: Sunil Rg ? Procedure Date: 12/21/2014 11:39 AM ? Date of : 1945 ? Age: 69 ? Order #: [id number] ? Procedure: ? Colonoscopy Indications: ? Anemia, Follow-up for history of ? adenomatous polyps in t colon Providers: ? Ryne Stevens MD, Mirta Lewis, ? RN, Diana jacobo RN Referring MD: ?Ashanti Matt MD Medicines: ? Midazolam 3 [...] was made as the ? colonoscope was withdra wn. The ? colonoscopy was perform ed without ? difficulty. The patient tolerated the ? procedure well. The cleo lityanick of the ? bowel preparation was e [...]
--- OUTSIDE RECORDS SUMMARY | 2020-07-20 13:17 | XMS_ITS | Encounter Summary ---
:1945 [place] [address] Care Team Providers Name Role Phone Cathie Matt MD Primary Care Provider Reason for Visit Reason Onset Date Comments Right Foot Pain 10/31/2010 Encounter Details Date Type Department Care Team Description 10/31/2010 Telephone Internal Medicine at [facility] Sarita Jha APRN Right Foot Pain [facility] [address] [facility] [place] [address] [place] [address] Social History Tobacco Use Types Packs/Day Years Used Date Former Smoker Alcohol Use Drinks/Week oz/Week Comments Not Asked Sex Assigned at Date Recorded Not on file documented as of this encounter Miscellaneous Notes Telephone Encounter - Sarita Jha APRN - 10/31/2010 11:00 AM EDT called to let him know I will ref. him to orthopedics in f/u of his pain and abnml x-ray. Brief email with Dr. Daniels who advised office visit prior to any additional images. documented in this encounter Plan of Treatment Not on filedocumented as of this encounter Visit Diagnoses Not on filedocumented in this encounter
--- OUTSIDE RECORDS SUMMARY | 2020-07-20 13:17 | XMS_ITS | Encounter Summary ---
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) [address] [place] [address] GENERAL INTERNAL [phone] [address] [place] [address] [phone] Social History Tobacco Use Types Packs/Day Years Used Date Former Smoker Alcohol Use Drinks/Week oz/Week Comments Not Asked Sex Assigned at Date Recorded Not on file documented as of this encounter Last Filed Vital Signs Vital Sign Reading Time Taken Comments Blood Pressure 108/61 10/23/2010 1:40 PM EDT Pulse 64 10/23/2010 1:40 PM EDT Temperature - - Respiratory Rate - - Oxygen Saturation - - Inhaled Oxygen Concentration - - Weight 65.8 kg (145 lb) 10/23/2010 1:40 PM EDT Height 176.5 cm (5' 9.5) 10/23/2010 1:40 PM EDT Body Mass Index 21.11 10/23/2010 1:40 PM EDT documented in this encounter Patient Instructions Patient InstructionsSarita Jha APRN - 10/23/2010 1:57 PM EDT Aleve 1 tab twice a day with food. documented in this encounter Progress Notes Sarita Jha APRN - 10/23/2010 2:07 PM EDT Subjective: Patient ID: Sunil Rg is a 65 y.o. male. HPI Our first visit- R foot pain and swelling x6 weeks. Started after he spent close to 5 weeks on his hands and knees refinishing his wood floors. The dorsal surface of both feet were rubbing on the floor during this time. Now, he has noted more swelling over the big toe area. occ feels tingling into the big toe and it hurts more w/tying his shoes tight. no home regimes tried. Review of Systems Objective: Physical Exam nad, nml gait. R vs: L foot: mild increased swelling over the 1st metatarsal. FROM 08/16 skin: noted hyperpigmentation and chapped appearance over the dorsum of bilat feet. +csm Assessment and Plan: R Foot pain: noted bony enlargement on the R 1st metatarsal area. ? bony contusion. no evidence of fx. ice, aleve i po bid x10d, chk film. If all neg, consider Podiatry ref. documented in this encounter Plan of Treatment Not on filedocumented as of this encounter Results XR foot minimum 3 views (10/23/2010 2:51 PM EDT) Specimen Impressions Performed At IMPRESSION: RAD 1. ??Pes planus. 2. 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 If the patient presents with limited subtalar motion and an exam sugg estive of coalition a CT may be useful to evalulate the subtalar joint more fully. Film and interpretation reviewed by the attending Narrative Performed At RAD AP, OBLIQUE, AND LATERAL VIEWS OF THE RI GHT FOOT: INDICATION: ??First metatarsal pain and swelling of the right foot. HISTORY: ??Pain and swelling. TECHNIQUE: ??AP, oblique, and lateral views of the rig ht foot were obtained. COMPARISON: ??There was no film availabl e for comparison. FINDINGS: ??There is loss of the longitudinal arch of the foot with pes planus. No injury is apparent at the first MTP joint. In the a nkle, there does not appear to be a joint effusion. The contour of the midf oot on the lateral projection suggests possible subtalar coalition at the middle facet joint between the talus and calcaneus. Procedure Note Department, Radiology - 10/24/2010 11:59 AM EDT AP, OBLIQUE, AND LATERAL VIEWS OF THE RI GHT FOOT: INDICATION: First metatarsal pain and s welling of the right foot. HISTORY: Pain and swelling. TECHNIQUE: AP, oblique, and lateral vie ws of the right foot were obtained. COMPARISON: There was no film available for comparison. FINDINGS: There is loss of the longitud inal arch of the foot with pes planus. No injury is apparent at the first MTP j oint. In the ankle, there does not appear to be a joint effusion. The conto ur of the midfoot on the lateral projection suggests possible subtalar co alition at the middle facet joint between the talus and calcaneus. IMPRESSION IMPRESSION: 1. Pes planus. 2. Possible subtalar coalition at the r ight middle facet joint. If the patient presents with limited subtalar motion an d an exam suggestive of coalition a CT may be useful to evalulate the subtalar joint more fully. Film and interpretation reviewed by the attending Performing Organization Address City/State/ZIP Code [facility] e Number DH RAD RAD [address] [facility] [place] [address] documented in this encounter Visit Diagnoses Diagnosis Foot pain, right - Primary Pain in limb documented in this encounter
--- OUTSIDE RECORDS SUMMARY | 2020-07-20 13:17 | XMS_ITS | Encounter Summary ---
:1945 Author Organization [facility] [place] [address] Care Team Providers Name Role Phone Cathie Matt MD Primary Care Provider Reason for Referral Surgical (Routine) Status Reason Specialty Diagnoses / Referred By Referred To Procedures Contact Contact Closed Consult, Orthopaedic Diagnoses Right foot pain Sarita Jha [facility] Test & Treat Surgery / A, DISPOSAL WORKER 3a Orthopaedics [facility] [address] [place], [place] INTERNAL [address] Phone: [place], [place] [phone] Electronically signed by Ashanti Matt MD at Encounter Details Date Type Department Care Team Description 10/31/2010 Orders Only Internal Medicine at Sarita Jha Rig ht foot pain [facility] 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 WORKER (Primary Dx) [address] [place] [address] GENERAL INTERNAL [phone] [place], [place] [address] [phone] Social History Tobacco Use Types Packs/Day Years Used Date Former Smoker Alcohol Use Drinks/Week oz/Week Comments Not Asked Sex Assigned at Date Recorded Not on file documented as of this encounter Plan of Treatment Scheduled Referrals Name Type Priority Associated Order Schedule Diagnoses REFERRAL TO Outpatient Referral Routine Right foot pain Order ed: ORTHOPAEDICS 10/31/2010 documented as of this encounter Visit Diagnoses Diagnosis Right foot pain - Primary Pain in limb documented in this encounter
--- OUTSIDE RECORDS SUMMARY | 2020-07-20 13:17 | XMS_ITS | Encounter Summary ---
:1945 Author Organization [facility] [place] [address] Care Team Providers Name Role Phone Cathie Matt MD Primary Care Provider Encounter Details Date Type Department Care Team Description 10/23/2010 Hospital Encounter Internal Medicine at Ashanti Matt MD [address] [place] [address] [phone] [place] [address] [phone] Social History Tobacco Use Types Packs/Day Years Used Date Former Smoker Alcohol Use Drinks/Week oz/Week Comments Not Asked Sex Assigned at Date Recorded Not on file documented as of this encounter Medications at Time of Discharge Medication Sig Dispensed Refills Start Date End Date aspirin 325 mg tablet 0 01/02/2010 [facility] - Ginkoba 0 01/03/20 10 04/21/2019 [facility] - calcium citrate with 0 01/02/2010 04/21/2019 magnesium [facility] - prosta-metto 0 12/21/2014 [facility] - Vitamin E-400 0 12/21/2014 ascorbic acid (VITAMIN C) 1,000 mg tablet 0 01/02/2010 12/21/2014 VITAMIN B COMPLEX ORAL 0 01/02/2010 documented as of this encounter Plan of Treatment Not on filedocumented as of this encounter Visit Diagnoses Not on filedocumented in this encounter
--- OUTSIDE RECORDS SUMMARY | 2020-07-20 13:17 | XMS_ITS | Encounter Summary ---
:1945 Author Organization [facility] Address [address] [facility] [place] [address] Care Team Providers Name Role Phone Cathie Matt MD Primary Care Provider Encounter Details Date Type Department Care Team Description 10/23/2010 Hospital Encounter [facility]Ray at [facility] Foot pain, right [address] [place] [address] [place] [address] Social History Tobacco Use Types Packs/Day Years [...] Priority Date/Time Associated Diagnosis Comme nts XR FOOT MINIMUM 3 Routine 10/23/2010 2:51 PM Foot pain, right Results for this VIEWS EDT procedure are i n the results section. documented in this encounter Results XR foot minimum 3 [...] reviewed by the attending Narrative Performed At [facility] AP, OBLIQUE, AND LATERAL VIEWS OF THE [facility] FOOT: INDICATION: ??First metatarsal pain and swelling [...] AP, OBLIQUE, AND LATERAL VIEWS OF THE [facility] FOOT: INDICATION: First metatarsal pain and s [...] the attending Performing Organization Address City/State/ZIP Code Phon e Number RAD RAD [address] [facility] [place] [address] documented in this encounter Visit Diagnoses Diagnosis Foot pain, right Pain in limb documented in this encounter
[2020-07-20 15:22] LABS: ALT 23 U/L (16-63); AST 17 U/L (15-37); Albumin 3.9 g/dL (3.4-5.0); Alkaline Phosphatase 45 U/L (46-116); Anion Gap 9.1 mmol/L (3-11); BUN 19 mg/dL (7-18); Bilirubin, Total 0.6 mg/dL (0.2-1.0); CO2 29.9 mmol/L (21.0-32.0); CREATININE 0.9 mg/dL (0.70-1.30); Calcium 8.9 mg/dL (8.5-10.1); Calculated LDL 116 mg/dL (<100); Chloride 105 mmol/L (98-107); Cholesterol 190 mg/dL (<200); Glucose 96 mg/dL (74-106); HDL Cholesterol 65 mg/dL (40-60); Potassium 4.8 mmol/L (3.5-5.1); Sodium 144 mmol/L (136-145); Total Protein 6.6 g/dL (6.4-8.2); Triglyceride 46 mg/dL (<150)
[2020-07-20 15:30] LABS: Vitamin D 25 Total 54.1 ng/mL (30-100)
[2020-07-20 22:05] LABS: PSA, Screening 1.7 ng/mL (0.0-6.5)
== END 2020-07-20 13:10 | disposition home or self-care (01) ==
LOC: NCHCN 13:09
PROVIDERS: PCP Family Medicine; Visit Provider Family Medicine
DX: E23.2 Diabetes insipidus (principal); R53.83 Other fatigue; A69.20 Lyme disease, unspecified; N41.9 Inflammatory disease of prostate, unspecified; N52.9 Male erectile dysfunction, unspecified; Z12.5 Encounter for screening for malignant neoplasm of prostate
CPT/HCPCS: 80053; 80061; 82306; 84153; 85027

== ENCOUNTER 2020-08-15 13:28 | Outpatient (CLI) | payer OTHER, SELFPAY ==
--- NOTE | 2020-08-15 13:00 | DI.RAD_ITS ---
Exam(s) XR SHOULDER LT COMPLETE 2+V EXAM: XR SHOULDER LT COMPLETE 2+V CLINICAL HISTORY: left shoulder pain. TECHNIQUE: 2D digital imaging was performed. COMPARISON: No exams were available for comparison FINDINGS: There are mild degenerative changes at the acromioclavicular joint. The glenohumeral joint is well m aintained. The bones are intact and normally mineralized. The soft tissues are unremarkable. IMPRESSION: DATA REPOSITORY: RADIATION DOSE DELIVERED:
--- NOTE | 2020-08-15 13:00 | DI.RAD_ITS ---
Exam(s) XR SHOULDER RT COMPLETE 2+V EXAM: XR SHOULDER RT COMPLETE 2+V CLINICAL HISTORY: right shoulder pain. TECHNIQUE: 2D digital imaging was performed. COMPARISON: No exams were available for comparison FINDINGS: The right shoulder is well maintained. The bones are intact and normally mineralized. The soft tiss ues are unremarkable. IMPRESSION: DATA REPOSITORY: RADIATION DOSE DELIVERED:
== END 2020-08-15 13:29 | disposition home or self-care (01) ==
LOC: DIORS 13:28
PROVIDERS: PCP Family Medicine; Referring Provider Family Medicine; Visit Provider Student in an Organized Health Care Education/Training Program
DX: M25.512 Pain in left shoulder (principal); M25.511 Pain in right shoulder; M19.012 Primary osteoarthritis, left shoulder; M19.011 Primary osteoarthritis, right shoulder
CPT/HCPCS: 99203; 73030

== ENCOUNTER → 2020-09-07 09:28 | Outpatient (BNVA) | payer OTHER, SELFPAY | PROVIDERS: PCP Family Medicine; Referring Provider Family Medicine; Visit Provider Physical Therapy Assistant | DX: K22.70 Barrett's esophagus without dysplasia (principal) | CPT/HCPCS: 99214 ==

== ENCOUNTER 2020-09-13 02:58 | Outpatient (CLI) | payer OTHER, SELFPAY ==
[2020-09-13 11:32] LABS: Source Nasal/Nares
[2020-09-13 15:18] LABS: COVID-19 PCR Negative (Negative)
== END 2020-09-13 02:59 | disposition home or self-care (01) ==
LOC: LBO 02:58
PROVIDERS: PCP Family Medicine; Visit Provider Surgery
DX: Z20.822 Contact with and (suspected) exposure to COVID-19 (principal); Z01.818 Encounter for other preprocedural examination
CPT/HCPCS: 87635

== ENCOUNTER 2020-09-15 12:51 | Day surgery (SDC) | payer OTHER, SELFPAY ==
[2020-09-15 13:00] VITALS: BP 108/61; PULSE 85; RESP 16; TEMP 36.5; O2SAT 96
[2020-09-15] MEDS: Lactated Ringers 1,000 ML 80 ML IV (13:36)
--- NOTE | 2020-09-15 13:51 | ANES.PREOP_ITS ---
General Info Date of Service Date Performed: 09/15/20 Height: 5 ft 9 in Weight: 59.9 kg Body Mass Index (BMI): 19.5 Surgical Procedure: Operation Date: 09/15/20 12:20 Proposed Procedures Side Surgeon p Gastroscopy Gale Rock, DO Meds Allergies and Home Medications Allergies Allergy/AdvReac Type Severity Reaction Status Date / Time ciprofloxacin [From Cipro] Allergy Intermediate unknown Verified 09/14/20 09:50 Home Medication Medication Instructions Recorded cannabidiol 100 mg/mL oral solution 100 mg PO ONCE PRN ml 08/11/20 cholecalciferol (vitamin D3) 25 25 mcg PO DAILY 08/11/20 mcg (1,000 unit) capsule ginkgo biloba 40 mg tablet 40 mg PO TID 08/11/20 ibuprofen 200 mg capsule 200 mg PO Q6H PRN 08/11/20 lactobacillus combination no.9 4 4,000 mmu cells PO DAILY 08/11/20 billion cell capsule omega-3 fatty acids 1,000 mg 1,000 mg PO DAILY 08/11/20 capsule tamsulosin 0.4 mg capsule 0.4 mg PO DAILY 08/11/20 vitamin K2 100 mcg capsule 100 mcg PO DAILY 08/11/20 zinc acetate 50 mg (zinc) capsule 50 mg PO DAILY 08/11/20 Current Visit Medications: Current Medications Generic Name Dose Route Start Last Admin Trade Name Freq PRN Reason Stop Dose Admin Ringer's Solution 1,000 mls @ 80 mls/hr 09/15/20 06:00 09/15/20 13:36 IV 10/14/20 23:59 80 mls/hr INFUSION KRISTIAN Administration IV Miscellaneous Supplies 1 each 09/15/20 06:00 Iv Access IV 10/14/20 23:59 DIRECTED KRISTIAN Sodium Chloride 0 ml 09/15/20 06:00 Normal Saline Flush 10 Ml Syr IV 10/14/20 23:59 PRN PRN Sodium Chloride 0 ml 09/15/20 06:00 Normal Saline 10 Ml Vial IJ 10/14/20 23:59 DIRECTED PRN Sterile Water 0 ml 09/15/20 06:00 Water,Injection,Sterile 10 Ml Vial IJ 10/14/20 23:59 DIRECTED PRN PFSH Active Problems Active Problems: Problem Status Onset Code 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 stated he has not had to have corrective interventions for this. Diabetes insipidus Fatigue History of basal cell cancer Neuropathy Patent foramen ovale with atrial septal aneurysm pt. states after his work up this is what he was told he had Prostatitis [place] spotted fever 02/2020 Scoliosis Surgical History Surgical History (Updated 09/15/20 @ 13:28 by Johann Person) H/O vasectomy Hx of facial fracture repair Hx of tonsillectomy Tobacco Smoking/Tobacco Use Status: Former Tobacco Use Alcohol Alcohol Intake: current Alcohol intake frequency: 0-2 drinks per day Alcohol type: beer Substance Use Substance use: Never Substance use type: does not use Vital Signs and Lab Results Vital Signs Most Recent Vital Signs in EMR: Most Recent Vital Signs Temp Pulse Resp BP Pulse Ox 36.5 C 85 16 108/61 96 09/15/20 13:00 09/15/20 13:00 09/15/20 13:00 09/15/20 13:00 09/15/20 13:00 Lab Results Blood Type / Crossmatch: No Data to Display Complete Blood Count: No Data to Display Complete Metabolic Panel: No Data to Display Liver Function Panel: No Data to Display Coagulation Panel: No Data to Display Cardiac Panel: No Data to Display Arterial Blood Gas: No Data to Display Venous Blood Gas: No Data to Display Pancreas Panel: No Data to Display Thyroid Panel: No Data to Display Infectious Disease: Coronavirus (COVID-19)(PCR) Negative (Negative) 09/13/20 08:59 09/13/20 Coronavirus 2019 Source Nasal/nares 09/13/20 08:59 09/13/20 Blood Cultures: No Data to Display Toxicology Panel: No Data to Display Anesthesia Assessment and Plan Anesthesia History Personal History: No History of Anesthesia Complications Family History: No Family History of Anesthesia Complications Exercise Tolerance Exercise Tolerance: Metabolic Equivalents>4 Pertinent Negatives Pertinent Negatives: No Major Cardiovascular Symptoms or Complaints, No Major Pulmonary Symptoms or Complaints and No History of CVA/TIA Cardiac & Pulmonary Exam Cardiac Exam: Normal S1/S2 Heart Sounds Pulmonary Exam: Clear Bilateral Breath Sounds Airway Exam Known Difficult Airway: No Mallampati Class: 1 Mouth Opening: Normal (> 3cm) Thyromental Distance: Greater than 3 cm Neck Range of Motion: Full ROM Neck Circumference: Normal Teeth Condition: Normal Dentition ASA Classification ASA Score: ASA 2 Emergency Case?: No NPO Status NPO Status: NPO Clears >2 hours, Solids >8 hours Anesthesia Plan Resuscitation Status: Full Code Anesthesia Technique: General Anesthesia Airway Planned: Natural Airway Monitors Used: Standard Monitors
[2020-09-15 13:56] VITALS: BMI 19.5
--- NOTE | 2020-09-15 14:46 | W.PM.ENDDOP ---
Date of service: 09/15/20 Time of Service: 14:46 Endoscopy Report DATE OF PROCEDURE: 09/15/20 PRE-OP DIAGNOSIS: hx of milton's POST-OP DIAGNOSIS: other (hiatal hernia/esophagitis ) SURGEON: Gale Rock ANESTHESIA TYPE: General:No Airway ESTIMATED BLOOD LOSS: 1 PATHOLOGY: other COMPLICATIONS: None DISPOSITION: same day PROCEDURE DESCRIPTION: After informed consent was obtained the patient was take to the procedure room and placed in a supine position. Monitors were applied and a time out was done. The patients name, date of , procedure type, allergies to medications and metal in their body was reviewed. A bite block was placed and the patient was sedated. Once sedated and comfortable the gastroscope was advanced through the oropharynx which was grossly normal into the esophagus. The proximal and mid-esophagus were nl. In the distal esophagus there was noted to have esophagitis. There is a small hiatal heria- 2cm. There are x2 lg tongues of waht appear to be Milton's, as seen under NBI. Multiple biopsy's are taken. The scope was advanced into the stomach and through the pylorus into the 3rd portion of the duodenum. The duodenum was noted to be nl. Biopsies were done, all specimens are retrieved and no bleeding is noted. The scope was retracted back into the stomach and biopsies were done to rule out H. pylori. There were no ulcers or gastritis. The scope was retroflexed. The cardia and fundus were noted to be normal. There small 2cm a hiatal hernia noted- it appears to be a type II. The scope was retracted back into the esophagus and biopsies were done of the GE junction to rule out Milton's. The Z line was irregular. The GE junction was at 38 cm. The scope was removed and the patient was woken up and taken back to [facility] in stable condition. My office will send a letter with the results of the biopsies in approximately 3 weeks time. He will be started on Protonix He was given information on diet and lifestyle modification
--- NOTE | 2020-09-15 14:50 | BOWEL_PTH ---
PATIENT: Sunil Rg LOC: [facility] U#:[id number] AGE/SX: 75/M ROOM: RE09/15/[address]: Gale Rock : 1945 BED: DIS: 09/15/2020 SPEC #: [id number] RECD: 09/15/20 16:23 STATUS: PAUL REKaveh #: [id number] BLAZE: 09/15/20 14:[address]: Gale Rcok DEPT: Surgical Specimen RECD BY: Jeri Davenport ENTERED: 09/15/20 16:24 SP TYPE: Bowel OTHR DR: Carmina Narvaez Tissues: 1 - BIOPSY BOWEL 2 - BIOPSY BOWEL 3 - STOMACH BIOPSY 4 - STOMACH BIOPSY 5 - ESOPHAGUS BIOPSY 6 - ESOPHAGUS BIOPSY Procedures: GROSS AND MICRO LEVEL 4 Comments: [id number]
--- NOTE | 2020-09-15 14:52 | W.PM.DSUDISC ---
Discharge Plan Disposition Patient Disposition: HOME Condition: Good Discharge Details Reason For Visit: [facility] Attending Provider: [place] Primary Care Provider: Carmina Narvaez Home Meds and New Rx's Prescriptions: No Action cannabidiol 100 mg/mL solution 100 mg PO ONCE PRNRF: 0 omega-3 fatty acids [Fish Oil Concentrate] 1,000 mg capsule 1,000 mg PO DAILY RF: 0 cholecalciferol (vitamin D3) 25 mcg (1,000 unit) capsule 25 mcg PO DAILY RF: 0 vitamin K2 100 mcg capsule 100 mcg PO DAILY RF: 0 ibuprofen 200 mg capsule 200 mg PO Q6H PRNRF: 0 ginkgo biloba 40 mg tablet 40 mg PO TID RF: 0 zinc acetate 50 mg (zinc) capsule 50 mg PO DAILY RF: 0 Adult 50 Plus Probiotic 4 billion cell capsule 4,000 mmu cells PO DAILY RF: 0 tamsulosin [Flomax] 0.4 mg capsule 0.4 mg PO DAILY RF: 0 Discharge Instructions Additional Instructions: [facility] EGD's Post-Op Instructions Instructions for Everyone who is given Anesthesia: For your safety, please do the following for the next twenty-four (24) hours: *Do Not operate a motor vehicle (car, truck, motorcycle, etc.) *Do Not drink alcoholic beverages or use any recreational drugs for the first 24 hours or while taking pain medications. The medications in your body may have a reaction that can be dangerous. *Do Not make any important decisions or sign any important papers. Findings:hiatal hernia esophagitis Continue with lifestyle modifications: no alcohol, tobacco products, Aspirin or NSAID's (ibuprofen, Motrin, Naprosyn, aleve, etc), soda pop/any carbonated beverages, caffeine (including tea & chocolate), and acidic foods, (tomatoes, citrus, onions, peppermints) spicy or fried/fatty foods. Do not lie down for 30 minutes after eating, and do not eat 2 hours prior to bedtime. Avoid wearing tight fitting clothing/ belts. Follow up:Will send a letter in 3-4 wks w/ results and when to repeat the EGD. 1. No lifting over 20 pounds or strenuous activity for the first 24 hours after your procedure. After 24 hours there are no restrictions on your activity but you may feel fatigued for a few days. 2. After you arrive home you may have a light meal and return to your normal diet as you can tolerate it without feeling sick to your stomach. 3. You may have a mild sore throat for 24-48hrs. Gargle with salt water 5-6 times a day as needed for sore throat. Call the office at [phone] (Office) or [phone] (Hospital) right away if you notice any of the following: a.Vomiting of blood or ?coffee ground stools?. b.Chest pain or shortness of breathe. 5. If there are questions regarding the findings of your procedure, please contact your doctor 6. If you are unable to contact your doctor with a problem, contact the hospital at [phone]. 7. Continue all your regular medications unless directed otherwise. I understand the above instructions and have no questions. Signature of Patient or Adult Escort Name of Responsible Adult Escort Signature of Nurse Date/Time Activity:: see above Diet:: see above DS: Diagnosis Discharge Diagnosis (1) Esophagitis determined by endoscopy: Status: Acute (2) Hiatal hernia with GERD: Status: Acute
[2020-09-15 14:58] VITALS: BP 102/61; PULSE 81; RESP 16; TEMP 36.4; O2SAT 94
--- NOTE | 2020-09-15 14:59 | W.ANESPOSTOP ---
Postoperative Evaluation Date, Time and Location Date Performed: 09/15/20 Time Performed: 14:59 Patient Location: Day Surgery Unit Vital Signs Most Recent Imported Vital Signs: Most Recent Vital Signs Temp Pulse Resp BP Pulse Ox 36.5 C 85 16 108/61 96 09/15/20 13:00 09/15/20 13:00 09/15/20 13:00 09/15/20 13:00 09/15/20 13:00 Most Recent Manually Entered Vital Signs: Adult Blood Pressure: 102/61 Heart Rate: 86 Respirations: 12 Oxygen Saturation (%): 95 Temperature (C): 36.4 C Pain Score (0-10 Scale): 0 Pain Score Most Recent Pain Score: Most Recent Pain Score Pain Level 0 09/15/20 13:00 Assessment Mental Status: Awake (Alert & Oriented to Patient Baseline) Airway and Respiratory Function: Patent airway with normal (patient baseline) respiratory exam Cardiovascular Function: Hemodynamically Stable Hydration Status: Adequately Hydrated Nausea & Vomiting: No Nausea or Vomiting Pain: Pt. Denies Any Pain Peripheral Nerve Block: Patient did not receive a nerve block
[2020-09-15 15:00] VITALS: BP 102/61; PULSE 86; RESP 12; TEMPC 36.4; O2SAT 95
[2020-09-15 15:24] VITALS: BP 103/62; PULSE 67; RESP 16; TEMP 36.5; O2SAT 99
== END 2020-09-15 16:00 | disposition home or self-care (01) ==
PROVIDERS: PCP Family Medicine; Visit Provider Surgery
PROC: 0DJ68ZZ Inspection of Stomach, Via Natural or Artificial Opening Endoscopic (ICD-10-PCS; CPT 43235; principal; 2020-09-15 12:15)
DX: K21.00 Gastro-esophageal reflux disease with esophagitis, without bleeding (principal); K44.9 Diaphragmatic hernia without obstruction or gangrene
CPT/HCPCS: 43239; 88305; J2001

== ENCOUNTER → 2020-10-18 09:27 | Outpatient (BNVA) | payer OTHER, SELFPAY | PROVIDERS: PCP Family Medicine; Referring Provider Family Medicine; Visit Provider Student in an Organized Health Care Education/Training Program | DX: M19.012 Primary osteoarthritis, left shoulder (principal); M19.011 Primary osteoarthritis, right shoulder; M75.101 Unspecified rotator cuff tear or rupture of right shoulder, not specified as traumatic; G25.89 Other specified extrapyramidal and movement disorders | CPT/HCPCS: 99213 ==

== ENCOUNTER 2020-11-14 02:21 | Outpatient (CLI) | payer OTHER, SELFPAY ==
--- NOTE | 2020-11-14 07:01 | DI.MRI_ITS ---
Exam(s) MR UPPER JOINT RT WO CLINICAL HISTORY: r shoulder pain,ARTHRITIS RT GLENOHUMERAL JOINT,RT ROTATOR CUFF TEAR,. TECHNIQUE: Multiplanar multisequence MRI was performed. COMPARISON: None FINDINGS: MR examination of the shoulder was performed according to the usual protocol. There is no significant effusion of the glenohumeral joint. No fluid in the subacromial subdeltoid bu rsa. Bones and labrum: There are mild hypertrophic degenerative changes with slight signal abnormalities i n the acromion and clavicle at the AC joint. Glenoid labrum appears mildly effaced no convincing tear is demonstrated on this noncontrast study. Rotator cuff: Supraspinatus tendon shows mildly abnormal signal distally and there is apparent linea r 2 x 4 millimeter in diameter inferior surface tearing at the humeral footprint., Subscapularis, inf raspinatus, and teres minor muscles and tendons show normal signal and no evidence of a tear. Rotator interval structures are unremarkable with no evidence of a tear. Biceps tendon and anchor: Biceps tendon and anchor show normal signal and no evidence of a tear. Nando ps tendon is normally positioned in the bicipital groove. IMPRESSION: Minimal inferior surface tearing of supraspinatus tendon at the humeral footprint as described above. Minimal supraspinatus tendinosis. No other significant findings apart from degenerative changes at the AC joint. Glenoid labrum not well visualized but appears somewhat effaced without evidence of convincing tear. DATA REPOSITORY:
== END 2020-11-14 02:41 ==
PROVIDERS: PCP Family Medicine; Visit Provider Student in an Organized Health Care Education/Training Program
DX: M19.011 Primary osteoarthritis, right shoulder (principal); M75.101 Unspecified rotator cuff tear or rupture of right shoulder, not specified as traumatic; M75.81 Other shoulder lesions, right shoulder
CPT/HCPCS: 73221

== ENCOUNTER → 2020-11-21 08:33 | Outpatient (BNVA) | payer OTHER, SELFPAY | PROVIDERS: PCP Family Medicine; Referring Provider Family Medicine; Visit Provider Student in an Organized Health Care Education/Training Program | DX: M75.51 Bursitis of right shoulder (principal); M19.012 Primary osteoarthritis, left shoulder; M19.011 Primary osteoarthritis, right shoulder; M75.101 Unspecified rotator cuff tear or rupture of right shoulder, not specified as traumatic; G25.89 Other specified extrapyramidal and movement disorders; M75.41 Impingement syndrome of right shoulder; M75.42 Impingement syndrome of left shoulder | CPT/HCPCS: 99213 ==

== ENCOUNTER 2021-02-21 16:16 | Outpatient (REF) | payer MEDICARE, SELFPAY ==
[2021-02-23 15:52] LABS: COVID-19 RT-PCR UVMMC Result Negative (Negative)
== END 2021-02-21 16:17 | disposition home or self-care (01) ==
LOC: NCHCN 16:16
PROVIDERS: PCP Family Medicine; Visit Provider Family Medicine
DX: Z20.822 Contact with and (suspected) exposure to COVID-19 (principal); B97.89 Other viral agents as the cause of diseases classified elsewhere
CPT/HCPCS: U0003

== ENCOUNTER 2021-04-20 12:57 | Outpatient (CLI) | payer MEDICARE, SELFPAY ==
--- NOTE | 2021-05-22 12:45 | W.CARDEVENT ---
Date of service: 05/22/21 Time of Service: 12:45 Cardiac Event Recorder Referring Provider:: Carmina Shipley Indications:: Syncope Cardiac Event Note: This is a 30-day event monitor reportedly ordered for syncope Rhythm throughout was atrial fibrillation. Average heart rate overall was 87 No significant ventricular dysrhythmias were documented There was no bradycardia, no high-grade AV block, no pauses greater than 3 seconds Patient symptoms corresponded to atrial fibrillation rate generally about 100
== END 2021-04-20 12:58 | disposition home or self-care (01) ==
LOC: RT 12:59
PROVIDERS: PCP Family Medicine; Visit Provider Family Medicine
DX: R55 Syncope and collapse (principal)
CPT/HCPCS: 93270

== ENCOUNTER 2021-05-17 01:42 | Outpatient (CLI) | payer MEDICARE, SELFPAY ==
--- NOTE | 2021-05-17 10:30 | DI.US_ITS ---
APPROVED REPORT EXAM: Comprehensive 2D, Doppler, and color-flow Echocardiogram Other Information Study Quality: Adequate Conclusion Normal left ventricular wall thickness and chamber size. Estimated ejection fraction is 45 to 50% wi th mild global hypokinesis Normal right ventricular size and systolic function The atria are severely dilated Trileaflet aortic valve with trace regurgitation. There is no aortic stenosis Mildly thickened mitral leaflets with mild regurgitation Normal tricuspid valve with mild regurgitation. Estimated right ventricular systolic pressure is 18 mmHg The patient was in atrial fibrillation at a controlled rate throughout the study Wall motion Left Ventricle The left ventricle is normal size. Left ventricular systolic function is mildly decreased. There is n ormal left ventricular wall thickness. There is global hypokinesis of the left ventricle. There is no ventricular septal defect visualized. LVEF is 45-50%. Right Ventricle Right ventricle is borderline dilated. The right ventricular systolic function is normal. The RVSP is 17.8 mmHg. Atria Left atrium is severely dilated. Right atrium is severely dilated. The interatrial septum is intact w ith no evidence for an atrial septal defect. Aortic Valve The aortic valve is normal in structure. Aortic valve is trileaflet. There is no aortic valvular sten osis. Trace aortic regurgitation. Mitral Valve Mitral valve leaflets are mildly thickened. No evidence of mitral valve stenosis. mild mitral regurgi tation. Tricuspid Valve The tricuspid valve is normal in structure. There is no tricuspid valve stenosis. Mild tricuspid regu rgitation. Pulmonic Valve The pulmonary valve is normal in structure. There is no pulmonic valvular stenosis. Trace pulmonic re gurgitation. Great Vessels The aortic root is normal in size. Ascending aorta is not well visualized. IVC is normal in size and collapses >50% with inspiration. Pericardium There is no pericardial effusion. 2D Dimensions IVSD d PLAX 0.80 cm M: 0.6-1.2 LV Vol A2C d MOD 109.5 mL LVPW d PLAX 0.81 cm M: 0.6 - 1.2 LV Vol A4C d MOD 101.2 mL LVID d PLAX 5.06 cm M: 4.2 - 5.8 LA vol/ BSA A2C s A-L 47.1 mL/m2 LVDs 3.90 cm M: 2.5 - 4.0 LA vol/ BSA A4C s A-L 44.0 mL/m2 Ao Root d 2.77 cm M: 3.1 - 3.7 LA Vol/ BSA Biplane s A-L 46.8 mL/m2 RA Area A4C 19.13 cm2 LA Area A4C s MOD 23.11 cm2 RA Vol/ BSA A4C s A-L 31.2 mL/m2 LA Area A2C s MOD 23.28 cm2 LV EF Teichholz 45.2 % LV EF A4C MOD 48.0 % LVEF ([facility]) 44.73 % M: 52 - 72 LV EF A2C MOD 45.2 % LV Volume 83.99 mL M: 62 - 150 LV EF Biplane MOD 44.7 % LV Volume Index 47.99 mL/m2 M: 34 - 74 SV 47.85 mL LV Vol Biplane MOD 107.0 mL SV Index 27.29 mL/m2 FS 22.55 % M-Mode TAPSE 2.37 cm (M/F) >1.7 LV Diastology MV E' medial 0.111 (>0.07 m/s) E/A Ratio 2.8 LV E/e MED 6.40 (<14) MV E Vmax 0.71 (0.4-1.3 m/s) MV E' lateral 0.122 (>0.1 m/s) MV A Vmax 0.25 (0.4-1.3 m/s) LV E/e LAT 5.85 (<14) MV E/A Ratio 2.68 MV E/E' medial 6.41 MV E/E' lateral 5.86 Aortic Valve LVOT Area 3.24 cm2 AoV Area Vmax 2.97 cm2 LVOT Vmax 0.90 m/s AoV Area/ BSA (Vmax) 1.69 cm2/m2 LVOT Mean Kana. 0.60 m/s MACHO Mean Kana. 2.81 cm2 LVOT Peak Grad 3.2 mmHg MACHO Mean Kana. Index 1.60 cm2/m2 LVOT Mean Grad 1.6 mmHg AR DT 2791 msec LVOT VTI 0.183 m AR PHT 809 msec LVOT Diam s 2.00 cm AoV Vmax 0.98 m/s Velocity Ratio 0.91 AoV Mean Kana. 0.69 m/s AoV Peak Grad 3.9 mmHg LVOT SV 59.42 mL AoV Mean Grad 2.1 mmHg AoV VTI 0.183 m AoV Area VTI 3.25 cm2 AoV Area/ BSA (VTI) 1.85 cm/m2 Mitral Valve MV DT 177 (160-240 msec) MV PHT 51 msec MV Area PHT 4.28 cm2 MV VTI 0.223 m MV Area VTI 2.66 (4.0-6.0 cm2) Pulmonary Valve PV Vmax 0.71 (0.5-1.5 m/s) RVOT Peak Gr. 0.96 mmHg PV Peak Grad 2.0 mmHg RVOT Mean Gr. 0.55 mmHg PV Mean Grad 1.1 mmHg RVOT VTI 0.104 m PV VTI 0.148 m RVOT Vmax 0.49 m/s Tricuspid Valve TR Peak Grad 14.8 mmHg TR Vmax 1.92 m/s RA Pressure 3.00 mmHg RVSP (TR) 17.8 mmHg
== END 2021-05-17 02:02 ==
PROVIDERS: PCP Family Medicine; Visit Provider Family Medicine
DX: R55 Syncope and collapse (principal)
CPT/HCPCS: 93306

== ENCOUNTER 2021-05-22 12:45 | Outpatient (CLI) | payer MEDICARE, SELFPAY | END 2021-05-22 12:46 | LOC: CARDO 05-23 10:25 | PROVIDERS: PCP Family Medicine; Referring Provider Family Medicine; Visit Provider Internal Medicine Cardiovascular Disease | DX: R55 Syncope and collapse (principal); I48.91 Unspecified atrial fibrillation | CPT/HCPCS: 93272 ==

== ENCOUNTER → 2021-09-07 00:40 | Outpatient (CLI) | payer MEDICARE, SELFPAY ==
--- NOTE | 2021-09-07 | DI.US_ITS ---
Exam(s) US BREAST LT LIMITED EXAM: US BREAST LT LIMITED CLINICAL HISTORY: LT BREAST MASS, N63.0, F/U TO ABNL MAMMO, R92.8 TECHNIQUE: Ultrasound left breast performed using standard protocol. COMPARISON: No exams were available for comparison FINDINGS: No solid or cystic masses, hypoechoic foci, areas of abnormal shadowing, or areas of skin thickening. Small amount of breast tissue in the medius subareolar region. IMPRESSION: No sonographically suspicious finding. Findings consistent with mild asymmetric gynecomastia. BI-RADS Category 2 - Benign Findings DATA REPOSITORY:
--- NOTE | 2021-09-07 | DI.MAMMO_ITS ---
Exam(s) MAMMO DIAGNOSTIC BI EXAM: MAMMO DIAGNOSTIC BI CLINICAL HISTORY: LT BREAST MASS, N63.0. COMPARISON: No exams were available for comparison [id number] TECHNIQUE: Craniocaudal and mediolateral oblique Full Field Digital Mammography views of both breast s with Computer Aided Diagnosis followed by Tomosynthesis and left breast ultrasound. FINDINGS: Mammography/Tomosynthesis: Masses/Architectural Distortion: None seen. There is mild tissue development in the subareolar regio n of the left breast consistent with mild asymmetric gynecomastia. Microcalcifications: No suspicious pleomorphic-type are seen. Skin Thickening/Nipple Retraction: None. Left breast US: Echotexture: A small area of glandular tissue noted in the subareolar region.. Shadowing: No suspicious foci. Cyst: None. Solid lesions: None seen. Ductal dilation: None. IMPRESSION: 1. No evidence of malignancy is noted. Findings are consistent with mild asymmetric gynecomastia of t he left breast. BI-RADS Category 2 - Benign Findings Breast Density - Category A - Almost entirely fatty A negative radiographic report should not delay biopsy if a dominant or clinically suspicious mass is present. Up to ten percent of cancers are not identified on mammography. A negative report may reinforce clinical impression. Adenosis and dense breasts may obscure an underlying neoplasm. False positive reports average 6 to 10%. Patient will receive a letter notifying them of these results.
== END ==
PROVIDERS: PCP Family Medicine; Visit Provider Family Medicine
DX: R92.8 Other abnormal and inconclusive findings on diagnostic imaging of breast (principal); N62 Hypertrophy of breast; N63.20 Unspecified lump in the left breast, unspecified quadrant
CPT/HCPCS: 76642; 77062; 77066; G0279

== ENCOUNTER 2023-01-06 12:24 | Outpatient (REF) | payer MEDICARE, SELFPAY ==
[2023-01-06 16:25] LABS: ALT 24 U/L (16-63); AST 16 U/L (15-37); Albumin 3.6 g/dL (3.4-5.0); Alkaline Phosphatase 53 U/L (46-116); Anion Gap 8.4 mmol/L (3-11); BUN 20 mg/dL (7-18); Bilirubin, Total 0.7 mg/dL (0.2-1.0); CO2 27.6 mmol/L (21.0-32.0); Calcium 9.3 mg/dL (8.5-10.1); Calculated LDL 109 mg/dL (<100); Chloride 105 mmol/L (98-107); Cholesterol 178 mg/dL (<200); Glucose 93 mg/dL (74-106); HDL Cholesterol 64 mg/dL (40-60); Potassium 4.7 mmol/L (3.5-5.1); Sodium 141 mmol/L (136-145); Total Protein 6.5 g/dL (6.4-8.2); Triglyceride 29 mg/dL (<150)
[2023-01-06 17:37] LABS: Vitamin D 25 Total 55.3 ng/mL (30-100)
[2023-01-07 18:23] LABS: PSA, Screening 1.4 ng/mL (<=6.5)
== END 2023-01-06 12:25 | disposition home or self-care (01) ==
LOC: LBN 12:24
PROVIDERS: PCP Family Medicine; Visit Provider Family Medicine
DX: E23.2 Diabetes insipidus (principal); A69.20 Lyme disease, unspecified; I48.91 Unspecified atrial fibrillation; N40.0 Benign prostatic hyperplasia without lower urinary tract symptoms; Z12.5 Encounter for screening for malignant neoplasm of prostate; R79.89 Other specified abnormal findings of blood chemistry; Z79.899 Other long term (current) drug therapy
CPT/HCPCS: 80053; 80061; 82306; 84153

== ENCOUNTER 2023-02-13 13:01 | Outpatient (CLI) | payer MEDICARE, SELFPAY ==
--- NOTE | 2023-02-13 13:00 | RT.EKG_ITS ---
APPROVED REPORT Exam: Resting ECG Reason for Exam: cardiac evaluation Patient Location: O HR:70 bpm ECG Measurements Heart Rate 70 AXIS MD [id number] P [id number] QRSd 112 QRS 53 QT 399 T 68 QTc 431 Conclusion Atrial fibrillation...? atrial activity Ventricular premature complex...V complex w/ short R-R interval Low voltage, extremity leads...all extremity leads <0.5mV Baseline wander in lead(s) V1
== END 2023-02-13 13:02 | disposition home or self-care (01) ==
LOC: DI.CARD 13:01
PROVIDERS: PCP Family Medicine; Visit Provider Internal Medicine Cardiovascular Disease
DX: I25.3 Aneurysm of heart (principal); I48.0 Paroxysmal atrial fibrillation
CPT/HCPCS: 93010

== ENCOUNTER → 2023-02-13 13:58 | Outpatient (BNVA) | payer MEDICARE, SELFPAY | PROVIDERS: PCP Family Medicine; Referring Provider Family Medicine; Visit Provider Internal Medicine Cardiovascular Disease | DX: I48.0 Paroxysmal atrial fibrillation (principal) | CPT/HCPCS: 93005; 99213 ==

== ENCOUNTER → 2023-08-14 13:17 | Outpatient (BNVA) | payer MEDICARE, SELFPAY | PROVIDERS: PCP Family Medicine; Referring Provider Family Medicine; Visit Provider Internal Medicine Cardiovascular Disease | DX: I48.0 Paroxysmal atrial fibrillation (principal) | CPT/HCPCS: 99213 ==

== ENCOUNTER 2023-11-03 21:06 | Outpatient (REF) | payer MEDICARE, SELFPAY ==
[2023-11-03 15:21] LABS: Abs Immature Grans 0.04 10^3/uL (0.0-0.06); Absolute Basophil Count 0.03 10^3/uL (0.0-0.2); Absolute Eosinophil Count 0.06 10^3/uL (0.0-0.7); Absolute Lymphocyte Count 1.24 10^3/uL (1.2-3.4); Absolute Monocyte Count 0.57 10^3/uL (0.1-0.8); Absolute Neutrophil Count 6.28 10^3/uL (1.2-6.7); Basophils % 0.4 %; Eosinophils % 0.7 %; HCT 37.5 % (40.0-50.0); HGB 12.1 g/dL (13.5-17.5); Immature Grans % 0.5 %; Lymphocytes % 15.1 %; MCHC 32.3 % (32.0-36.0); MCV 93 fL (80-95); MPV 9.9 fL (8.0-11.0); Monocytes % 6.9 %; Neutrophils % 76.4 %; Platelet Count 353 10^3/uL (130-400); RBC 4.04 10^6/uL (4.36-5.78); RDW 13.2 % (11.8-14.1); RDW-SD 44.9 fL; WBC 8.22 10^3/uL (4.4-10.8)
[2023-11-03 15:49] LABS: ALT 20 U/L (16-63); AST 12 U/L (15-37); Albumin 3.4 g/dL (3.4-5.0); Alkaline Phosphatase 67 U/L (46-116); Anion Gap 8.3 mmol/L (3-11); BUN 24 mg/dL (7-18); CO2 27.7 mmol/L (21.0-32.0); CREATININE 1.1 mg/dL (0.70-1.30); Calcium 8.5 mg/dL (8.5-10.1); Chloride 105 mmol/L (98-107); Estimated GFR 69.14 (mL/min/1.73m2); Glucose 81 mg/dL (74-106); Potassium 4.4 mmol/L (3.5-5.1); Sodium 141 mmol/L (136-145); Total Protein 6.1 g/dL (6.4-8.2)
[2023-11-05 10:11] LABS: Lyme Ab w Rflx to Lyme Confirm Positive (Negative)
[2023-11-05 13:03] LABS: Lyme IgG Ab Positive (Negative); Lyme IgM Ab Positive (Negative)
== END 2023-11-03 21:07 | disposition home or self-care (01) ==
LOC: LBN 21:06
PROVIDERS: PCP Family Medicine; Visit Provider Nurse Practitioner Family
DX: R21 Rash and other nonspecific skin eruption (principal)
CPT/HCPCS: 80053; 86617; 85025; 86618

== ENCOUNTER 2023-12-29 16:30 | Outpatient (REF) | payer MEDICARE, SELFPAY ==
[2023-12-29 18:16] LABS: Abs Immature Grans 0.01 10^3/uL (0.0-0.06); Absolute Basophil Count 0.03 10^3/uL (0.0-0.2); Absolute Eosinophil Count 0.22 10^3/uL (0.0-0.7); Absolute Lymphocyte Count 1.38 10^3/uL (1.2-3.4); Absolute Monocyte Count 0.47 10^3/uL (0.1-0.8); Absolute Neutrophil Count 4.09 10^3/uL (1.2-6.7); Basophils % 0.5 %; Eosinophils % 3.5 %; HCT 40.3 % (40.0-50.0); HGB 12.8 g/dL (13.5-17.5); Immature Grans % 0.2 %; Lymphocytes % 22.3 %; MCHC 31.8 % (32.0-36.0); MCV 94 fL (80-95); MPV 10.5 fL (8.0-11.0); Monocytes % 7.6 %; Neutrophils % 65.9 %; Platelet Count 327 10^3/uL (130-400); RBC 4.27 10^6/uL (4.36-5.78); RDW-SD 48.4 fL; Reticulocyte 0.9 % (0.5-2.4)
[2023-12-29 18:28] LABS: Iron 94 ug/dL (65-175); Total Iron Binding Capacity 301 ug/dL (250-450); Transferrin Sat 31 % (20-55)
[2023-12-29 18:53] LABS: Ferritin 109 ng/mL (26-388); Vitamin B12 457 pg/mL (193-986)
== END 2023-12-29 16:31 | disposition home or self-care (01) ==
LOC: NCHCN 16:30
PROVIDERS: PCP Family Medicine; Visit Provider Family Medicine
DX: D64.9 Anemia, unspecified (principal)
CPT/HCPCS: 82607; 82728; 83540; 83550; 85025; 85045

== ENCOUNTER 2024-04-15 14:55 | Emergency (ER) | payer MEDICARE, SELFPAY ==
[2024-04-15] VITALS (9 sets, daily range): BP systolic 124–147; BP diastolic 74–85; PULSE 74–94; RESP 11–20; TEMP 36.3–36.8; O2SAT 97–98
--- NOTE | 2024-04-15 16:00 | DI.CT_ITS ---
Exam(s) CT ABDOMEN PELVIS W EXAM: CT ABDOMEN PELVIS W CLINICAL HISTORY: LLQ pain, guarding, dif urinating abd BM. TECHNIQUE: Imaging Protocol: Axial computed tomography images with coronal and sagittal reformatted images were created and reviewed CONTRAST MATERIAL: Intravenous: Omnipaque 350 Contrast volume:100 ml Oral: no COMPARISON: No exams were available for comparison FINDINGS: ABDOMEN and PELVIS: Exam is mildly limited by motion. These and also limited by lack of intra-abdominal fat and lack of oral contrast. Lung Bases: No acute findings. Liver: Normal density. Several cysts. No follow-up recommended. No suspicious mass. Gallbladder and biliary tract: No radiodense calculus. No wall thickening or pericholecystic fluid. No biliary dilation. Pancreas: Normal density. No abnormal calcifications or inflammatory process. No evidence of mass. Spleen: Normal. Kidneys: Normal size, contour and axis. No radiodense stones. Moderate to severe left hydronephrosis . The proximal ureter is dilated but cannot be traced into the pelvis. No obstructing stone is visi ble. Mild delay in left nephrogram. Small amount of fluid surrounding the left kidney. No suspicio us masses seen. Adrenal glands: No masses seen. Vasculature: Abdominal aorta non-dilated. Soft tissues: Unremarkable. Bladder: No gross wall thickening. No calculi.No focal mass. Bowel: No obstruction. Sigmoid diverticulosis. No evidence of diverticulitis. There is a large qu antity of stool distending the cecum through transverse colon. The descending and sigmoid show littl e stool. There is fecalization of distal small bowel indicating stasis. Appendix normal. Peritoneal cavity: No ascites. No focal collection. No mesenteric inflammatory response. No free air . Bones: Old moderate L1 compression fracture. Degenerative disc changes at L4-5 and L5-S1. Reproductive organs: Prostate is enlarged and impresses on the base of the bladder. Lymph nodes: No pathologically enlarged lymph nodes. IMPRESSION:: Moderate to severe left hydronephrosis. No evidence of obstructing stone. Large quantity of stool in the cecum through transverse colon. Diverticulosis of the sigmoid without evidence of diverticulitis. RADIATION DOSE DELIVERED: Total DLP DATA REPOSITORY: All CT scans at this facility are submitted to the National Radiology Data Registry (NRDR) Dose Index Registry (DIR) with the [employer] (A[employer]). RADIATION OPTIMIZATION: All CT scans at this facility use at least one of these dose optimization te chniques: automated exposure control; mA and/or kV adjustment per patient size (includes targeted exa ms where dose is matched to clinical indication); or iterative reconstruction.
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
[2024-04-15 16:44] LABS: Lactate 1.3 mmol/L (0.6-1.4)
[2024-04-15 16:46] LABS: Abs Immature Grans 0.06 10^3/uL (0.0-0.06); Absolute Lymphocyte Count 0.67 10^3/uL (1.2-3.4); Absolute Monocyte Count 0.73 10^3/uL (0.1-0.8); Basophils % 0.2 %; Eosinophils % 0.2 %; HCT 41.1 % (40.0-50.0); HGB 13.6 g/dL (13.5-17.5); Immature Grans % 0.5 %; Lymphocytes % 5.1 %; MCH 30.3 pg (27.0-33.0); MCHC 33.1 % (32.0-36.0); MCV 92 fL (80-95); MPV 10.5 fL (8.0-11.0); Monocytes % 5.6 %; Neutrophils % 88.4 %; Platelet Count 278 10^3/uL (130-400); RBC 4.49 10^6/uL (4.36-5.78); RDW 13.2 % (11.8-14.1); RDW-SD 44.4 fL; WBC 13.08 10^3/uL (4.4-10.8)
[2024-04-15 16:47] LABS: Absolute Basophil Count 0.03 10^3/uL (0.0-0.2); Absolute Eosinophil Count 0.03 10^3/uL (0.0-0.7); Absolute Neutrophil Count 11.56 10^3/uL (1.2-6.7)
[2024-04-15 16:48] LABS: Bilirubin Negative (Negative); Blood Negative (Negative); Clarity Clear (Clear); Glucose Negative (Negative); Ketones 15 mg/dL (Negative); Leukocyte Esterase Negative (Negative); Nitrite Negative (Negative); Specific Gravity >= 1.030 (1.005-1.025); Urobilinogen 0.2 mg/dL (Up to 0.2)
[2024-04-15] MEDS: MORPHine 10 MG/ML VIAL 2 MG IVP (16:57)
[2024-04-15] MEDS: Normal Saline 500 ML IV (16:58)
[2024-04-15] MEDS: Normal Saline - Diluent 50 ML VIAL IJ (16:59)
[2024-04-15 17:05] LABS: ALT 18 U/L (16-63); AST 16 U/L (15-37); Albumin 3.6 g/dL (3.4-5.0); Alkaline Phosphatase 63 U/L (46-116); Anion Gap 7.8 mmol/L (3-11); BUN 22 mg/dL (7-18); Bilirubin, Total 0.76 mg/dL (0.2-1.0); CO2 26.2 mmol/L (21.0-32.0); CREATININE 1.4 mg/dL (0.70-1.30); Chloride 102 mmol/L (98-107); Estimated GFR 51.77 (mL/min/1.73m2); Glucose 97 mg/dL (74-106); Lipase 42 U/L (<78); Potassium 4.8 mmol/L (3.5-5.1); Sodium 136 mmol/L (136-145); Total Protein 6.5 g/dL (6.4-8.2)
[2024-04-15] MEDS: Omnipaque 350 MG/ML 100 ML BTL IJ (17:05)
[2024-04-15 17:16] LABS: Calcium 9.1 mg/dL (8.5-10.1)
[2024-04-15] MEDS: Magnesium Citrate 300 ML BTL PO (19:23)
--- NOTE | 2024-04-17 07:35 | NUR.NOTE ---
Access chart to reconcile EKG orders with EKG's in [facility]. Order cancelled due to no EKG in [facility]. Nursing Note:
== END 2024-04-15 19:30 | disposition home or self-care (01) ==
PROVIDERS: Emergency Provider Physician Assistant; PCP Family Medicine
DX: R10.30 Lower abdominal pain, unspecified (principal); R79.89 Other specified abnormal findings of blood chemistry; N13.30 Unspecified hydronephrosis; R19.5 Other fecal abnormalities; Z86.79 Personal history of other diseases of the circulatory system; R30.0 Dysuria
CPT/HCPCS: 51798; 80053; 83690; 96361; 96374; 99285; 74177; 81003; 83605; 85025; 99284; J2270; J3490

== ENCOUNTER → 2024-04-20 10:54 | Outpatient (BNVA) | payer MEDICARE, SELFPAY | PROVIDERS: PCP Family Medicine; Referring Provider Family Medicine; Visit Provider Nurse Practitioner Gerontology | DX: N13.30 Unspecified hydronephrosis (principal); N40.1 Benign prostatic hyperplasia with lower urinary tract symptoms; R35.0 Frequency of micturition; N13.8 Other obstructive and reflux uropathy; Z80.42 Family history of malignant neoplasm of prostate; E23.2 Diabetes insipidus | CPT/HCPCS: 51798; 99215 ==

== ENCOUNTER 2024-04-27 02:27 | Outpatient (CLI) | payer MEDICARE, SELFPAY ==
--- NOTE | 2024-04-27 07:00 | DI.NM_ITS ---
Exam(s) NM DTPA RENOGRAM W LASIX CLINICAL HISTORY: left hydronephrosis,n13.30. COMPARISON: CT CT ABDOMEN PELVIS W from 04/15/2024 EXAMINATION: Dose: 9.8 mCi Tc-99m MAG3 Images: Immediately for 1 minute followed by dynamic for 45 minutes. Eighteenmg Lasix was administere d after peak uptake in the renal cortex at 12 min. Imaging carried out to [address] opped at this time due to patient's urgency to void. FINDINGS: Time to peak: Right: 2 minutes, < 5 min normal Left: 6 minutes, < 5 min normal Curve Appearance: Right: Normal. Left: T1/2 (Lasix to half-Lasix) 18 min. Mild delay in washout curve. (< 10 min normal, 10-15 min Low grade obstruction, 15-20 min moderate,. 20 min high grade) Split renal function: Right: 58.1 % Left: 41.9 % IMPRESSION: 1. Left hydronephrosis and moderate grade obstruction.
[2024-04-27] MEDS: Furosemide 40 MG/4 ML VIAL 18 MG IVP (10:20)
== END 2024-04-27 02:47 ==
LOC: DI 02:27
PROVIDERS: PCP Family Medicine; Visit Provider Nurse Practitioner Gerontology
DX: N13.30 Unspecified hydronephrosis (principal)
CPT/HCPCS: 78708; J1940

== ENCOUNTER → 2024-05-17 14:26 | Outpatient (BNVA) | payer MEDICARE, SELFPAY | PROVIDERS: PCP Family Medicine; Referring Provider Family Medicine; Visit Provider Nurse Practitioner Gerontology | DX: R35.1 Nocturia (principal); N40.1 Benign prostatic hyperplasia with lower urinary tract symptoms; N13.30 Unspecified hydronephrosis | CPT/HCPCS: 99214 ==

== ENCOUNTER 2024-06-08 15:08 | Outpatient (REF) | payer MEDICARE, SELFPAY ==
[2024-06-08 15:55] LABS: Bilirubin Negative (Negative); Glucose Negative (Negative); Ketones Negative (Negative); Leukocyte Esterase Negative (Negative); Nitrite Negative (Negative); Specific Gravity 1.025 (1.005-1.025); Urobilinogen 0.2 mg/dL (Up to 0.2)
[2024-06-08 16:16] LABS: Blood Large (Negative)
[2024-06-08 16:17] LABS: RBC >50 HPF (0-2)
[2024-06-08 16:22] LABS: WBC Color Interference HPF (0-5)
[2024-06-08 16:23] LABS: Bacteria Color Interference HPF (Negative); C & S Indicated? No; Casts Color Interference LPF (Negative); Crystals Color Interference HPF (Negative); Epithelial Cells Color Interference HPF (Negative); Mucus Color Interference (Negative); Other Cells Color Interference (Negative)
[2024-06-08 17:45] LABS: Clarity Color Interference (Clear)
== END 2024-06-08 15:09 | disposition home or self-care (01) ==
LOC: NCHCN 15:08
PROVIDERS: PCP Family Medicine; Visit Provider Family Medicine
DX: R31.9 Hematuria, unspecified (principal)
CPT/HCPCS: 81003; 81015

== ENCOUNTER 2024-10-22 14:05 | Outpatient (REF) | payer MEDICARE, SELFPAY ==
[2024-10-22 15:09] LABS: Abs Immature Grans 0.03 10^3/uL (0.0-0.06); HCT 34.8 % (40.0-50.0); HGB 11.6 g/dL (13.5-17.5); Immature Grans % 0.4 %; MCH 29.7 pg (27.0-33.0); MCHC 33.3 % (32.0-36.0); MCV 89 fL (80-95); MPV 10.1 fL (8.0-11.0); Platelet Count 248 10^3/uL (130-400); RBC 3.90 10^6/uL (4.36-5.78); RDW 12.9 % (11.8-14.1); RDW-SD 42.6 fL; WBC 7.46 10^3/uL (4.4-10.8)
[2024-10-22 15:48] LABS: ALT 21 U/L (16-63); AST 15 U/L (15-37); Albumin 3.1 g/dL (3.4-5.0); Alkaline Phosphatase 73 U/L (46-116); Anion Gap 9.0 mmol/L (3-11); BUN 16 mg/dL (7-18); Bilirubin, Total 0.4 mg/dL (0.2-1.0); CO2 29.0 mmol/L (21.0-32.0); Calcium 8.8 mg/dL (8.5-10.1); Chloride 99 mmol/L (98-107); Estimated GFR 90.58 (mL/min/1.73m2); Glucose 91 mg/dL (74-106); Potassium 4.7 mmol/L (3.5-5.1); Sodium 137 mmol/L (136-145); Total Protein 6.4 g/dL (6.4-8.2)
[2024-10-25 16:15] LABS: B. miyamotoi PCR Negative (Negative); Babesia divergens/MO-1 Negative (Negative); Ehrlichia muris eauclairensis Negative (Negative)
== END 2024-10-22 14:06 | disposition home or self-care (01) ==
LOC: NCHCN 14:05
PROVIDERS: PCP Family Medicine; Visit Provider Family Medicine
DX: R53.1 Weakness (principal)
CPT/HCPCS: 80053; 87798; 85025; 87086

== ENCOUNTER 2025-04-09 20:40 | Inpatient (IN) | payer MEDICARE, SELFPAY ==
[2025-04-09] VITALS (16 sets, daily range): BP systolic 86–133; BP diastolic 41–61; PULSE 99–133; RESP 16–34; TEMP 37.2–37.4; O2SAT 95–97
--- NOTE | 2025-04-09 20:45 | RT.EKG_ITS ---
APPROVED REPORT Exam: Resting ECG Reason for Exam: chest pain Patient Location: E HR:120 bpm ECG Measurements Heart Rate 120 AXIS NM [id number] P [id number] QRSd 90 QRS 23 QT 302 T [id number] QTc 428 Conclusion Atrial fibrillation...V-rate 93-165, irreg A-activity Multiple ventricular premature complexes...V complexes w/ short R-R intervls Low voltage, extremity and precordial leads...extremity<0.5mV, precordial<1.0mV
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
--- NOTE | 2025-04-09 21:00 | DI.RAD_ITS ---
Exam(s) XR PORTABLE CHEST AP EXAM: XR PORTABLE CHEST AP CLINICAL HISTORY: righ sidedchest pain. TECHNIQUE: 2D digital imaging was performed. COMPARISON: CT CT ABDOMEN PELVIS W from 04/15/2024 FINDINGS: Single AP portable view. Heart size is upper normal. The mediastinum is not widened. Mild increased markings the posterior basal segments of both lower lobes, most which are vascular but cannot exclude mild additional infiltrate in the right lung base. There are no pleural effusions.. IMPRESSION: Subtle increased markings right lung base. No pleural effusions. DATA REPOSITORY: RADIATION DOSE DELIVERED:
[2025-04-09 21:29] LABS: BE (Venous) 2 mmol/L (-2-3); HCO3 (Venous) 26 mmol/L (23-28); O2 Sat (Venous) 77 %; TCO2 (Venous) 24 mmol/L (24-29); pCO2 (Venous) 37 mmHg (41-51); pO2 (Venous) 39 mmHg
[2025-04-09 21:31] LABS: Abs Immature Grans 0.05 10^3/uL (0.0-0.06); HCT 34.1 % (40.0-50.0); HGB 11.1 g/dL (13.5-17.5); Immature Grans % 0.4 %; MCH 29.3 pg (27.0-33.0); MCHC 32.6 % (32.0-36.0); MCV 90 fL (80-95); MPV 9.1 fL (8.0-11.0); Platelet Count 275 10^3/uL (130-400); RBC 3.79 10^6/uL (4.36-5.78); RDW 13.5 % (11.8-14.1); RDW-SD 44.7 fL; WBC 12.45 10^3/uL (4.4-10.8)
[2025-04-09] MEDS: Normal Saline 250 ML 500 ML IV (21:35)
[2025-04-09] MEDS: ACETAMINOPHEN 1,000 MG/100 ML BAG 400 MG IVPB (21:37)
[2025-04-09 21:49] LABS: Troponin I 6 ng/L (<54)
[2025-04-09 21:51] LABS: ALT 15 U/L (10-49); AST 18 U/L (<34); Albumin 4.0 g/dL (3.2-5.0); Alkaline Phosphatase 44 U/L (46-116); Anion Gap 7.7 mmol/L (3-11); BUN 27 mg/dL (9-23); Bilirubin, Total 0.6 mg/dL (0.2-1.2); CO2 25.3 mmol/L (20.0-31.0); Calcium 8.7 mg/dL (8.3-10.6); Chloride 108 mmol/L (98-107); Glucose 95 mg/dL (74-106); Magnesium 1.6 mg/dL (1.6-2.6); Potassium 4.1 mmol/L (3.5-5.1); Sodium 141 mmol/L (136-145); Total Protein 6.3 g/dL (5.7-8.2)
[2025-04-09 22:09] LABS: COVID-19 PCR Negative (Negative); RSV PCR Negative (Negative)
[2025-04-09] MEDS: Normal Saline 1,000 ML 1000 ML IV (22:28)
[2025-04-09] MEDS: cefTRIAXone 2 GM/50 ML BAG IVPB (22:30)
--- NOTE | 2025-04-09 22:31 | DI.VRAD_ITS ---
PROCEDURE INFORMATION: Exam: XR Chest Exam date and time: 04/09/2025 9:32 PM Age: 79 years old Clinical indication: Other: Right sided chest pain TECHNIQUE: Imaging protocol: Radiologic exam of the chest. Views: 1 view. COMPARISON: CT ABDOMEN PELVIS W 04/15/2024 5:02 PM FINDINGS: Lungs: Unremarkable. No consolidation. Pleural spaces: Unremarkable. No pleural effusion. No pneumothorax. Heart/Mediastinum: Unremarkable. No cardiomegaly. Bones/joints: Unremarkable. IMPRESSION: No acute findings. Dictated and Authenticated by: Renae Monreal MD. Orderin Britany Nix MD
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
[2025-04-09 22:50] LABS: Troponin I 7 ng/L (<54)
[2025-04-09] MEDS: AZITHROMYCIN 500 MG in Normal Saline 250 ML 250 MG IVPB (23:11)
--- NOTE | 2025-04-09 23:54 | W.PC.ACHO ---
Registration Status: REG ER Primary Language: Preferred Language: ED Information & Data Chief Complaint GenMedical 04/09/25 20:56 Triage Note PT states that he had sudden 04/09/25 20:43 onset of shaking SOB and R chest pain chest Medical / Surgical History (Last Reviewed 08/14/23 @ 13:34 by Lulu Maloney MD) Patent foramen ovale with atrial septal aneurysm Atrial septal aneurysm History of basal cell cancer Neuropathy [place] spotted fever Prostatitis Diabetes insipidus Fatigue Scoliosis (Last Reviewed 08/14/23 @ 13:34 by Lulu Maloney MD) History of esophagogastroduodenoscopy (EGD) (~09/2020) H/O vasectomy Hx of tonsillectomy Hx of facial fracture repair Most Recent Vital Signs Temperature 37.4 C 04/09/25 21:15 Temperature Source Oral 04/09/25 21:15 Pulse 122 H 04/09/25 22:38 Pulse 120 H 04/09/25 22:38 Respiratory Rate 26 H 04/09/25 22:38 Respiratory Effort Short of Breath 04/09/25 21:45 Respiratory Depth Normal 04/09/25 21:45 Respiratory Pattern Normal 04/09/25 21:45 Blood Pressure 105/51 L 04/09/25 22:38 Blood Pressure Mean 58 04/09/25 22:38 Pulse Oximetry 96 04/09/25 22:38 Oxygen Delivery Method Room Air 04/09/25 20:52 Oxygen Flow Rate 0 04/09/25 20:43 Pain Level 8 04/09/25 20:43 Allergies ciprofloxacin (From Cipro) Allergy (Intermediate, Verified 04/09/25 20:54) unknown rash lorazepam Adverse Reaction (Verified 04/09/25 20:54) Visual Disturbances Double vision IV IV Catheter Type [Left Forearm Peripheral IV ] IV Catheter Gauge [Left 18 Forearm] Diagnostics 04/09/25 04/09/25 04/09/25 Range/Units 23:45 22:17 21:22 WBC 12.45 H (4.4-10.8) 10^3/uL RBC 3.79 L (4.36-5.78) 10^6/uL Hgb 11.1 L (13.5-17.5) g/dL Hct 34.1 L (40.0-50.0) % MCV 90 (80-95) fL MCH 29.3 (27.0-33.0) pg MCHC 32.6 (32.0-36.0) % RDW 13.5 (11.8-14.1) % Plt Count 275 (130-400) 10^3/uL MPV 9.1 (8.0-11.0) fL Immature Gran % 0.4 % Neutrophils % 92.7 % Lymphocytes % 3.8 % Monocytes % 2.3 % Eosinophils % 0.6 % Basophils % 0.2 % Nucleated RBC % 0.0 (0.0-0.3) % Absolute Neutrophils 11.54 H (1.2-6.7) 10^3/uL Absolute Lymphocytes 0.47 L (1.2-3.4) 10^3/uL Absolute Monocytes 0.29 (0.1-0.8) 10^3/uL Absolute Eosinophils 0.07 (0.0-0.7) 10^3/uL Absolute Basophils 0.02 (0.0-0.2) 10^3/uL VBG pH 7.46 H (7.31-7.41) VBG pCO2 37 L (41-51) mmHg VBG pO2 39 mmHg VBG HCO3 26 (23-28) mmol/L VBG Total CO2 24 (24-29) mmol/L VBG O2 Saturation 77 % VBG Base Excess 2 (-2-3) mmol/L VBG Lactate 1.4 (<or=2.0) mmol/L Sodium 141 (136-145) mmol/L Potassium 4.1 (3.5-5.1) mmol/L Chloride 108 H (98-107) mmol/L Carbon Dioxide 25.3 (20.0-31.0) mmol/L Anion Gap 7.7 (3-11) mmol/L BUN 27 H (9-23) mg/dL Creatinine 0.99 (0.73-1.18) mg/dL Est GFR (CKD-EPI 2020) 72.97 (mL/min/1.73m2) Glucose 95 (74-106) mg/dL Calcium 8.7 (8.3-10.6) mg/dL Magnesium 1.6 (1.6-2.6) mg/dL Total Bilirubin 0.6 (0.2-1.2) mg/dL AST 18 (<34) U/L ALT 15 (10-49) U/L Alkaline Phosphatase 44 L (46-116) U/L Troponin I Pending 7 6 (<54) ng/L Total Protein 6.3 (5.7-8.2) g/dL Albumin 4.0 (3.2-5.0) g/dL Urine Color Urine Clarity Urine pH Ur Specific [place] Urine Protein Urine Ketones Urine Blood Urine Nitrite Urine Bilirubin Urine Urobilinogen Ur Leukocyte Esterase Urine Glucose COVID-19 Source SARS-CoV-2 (PCR) (Negative) Influenza Type A (PCR) (Negative) Influenza Type B (PCR) (Negative) RSV (PCR) (Negative) 04/09/25 Range/Units 20:50 WBC (4.4-10.8) 10^3/uL RBC (4.36-5.78) 10^6/uL Hgb (13.5-17.5) g/dL Hct (40.0-50.0) % MCV (80-95) fL MCH (27.0-33.0) pg MCHC (32.0-36.0) % RDW (11.8-14.1) % Plt Count (130-400) 10^3/uL MPV (8.0-11.0) fL Immature Gran % % Neutrophils % % Lymphocytes % % Monocytes % % Eosinophils % % Basophils % % Nucleated RBC % (0.0-0.3) % Absolute Neutrophils (1.2-6.7) 10^3/uL Absolute Lymphocytes (1.2-3.4) 10^3/uL Absolute Monocytes (0.1-0.8) 10^3/uL Absolute Eosinophils (0.0-0.7) 10^3/uL Absolute Basophils (0.0-0.2) 10^3/uL VBG pH (7.31-7.41) VBG pCO2 (41-51) mmHg VBG pO2 mmHg VBG HCO3 (23-28) mmol/L VBG Total CO2 (24-29) mmol/L VBG O2 Saturation % VBG Base Excess (-2-3) mmol/L VBG Lactate (<or=2.0) mmol/L Sodium (136-145) mmol/L Potassium (3.5-5.1) mmol/L Chloride (98-107) mmol/L Carbon Dioxide (20.0-31.0) mmol/L Anion Gap (3-11) mmol/L BUN (9-23) mg/dL Creatinine (0.73-1.18) mg/dL Est GFR (CKD-EPI 2020) (mL/min/1.73m2) Glucose (74-106) mg/dL Calcium (8.3-10.6) mg/dL Magnesium (1.6-2.6) mg/dL Total Bilirubin (0.2-1.2) mg/dL AST (<34) U/L ALT (10-49) U/L Alkaline Phosphatase (46-116) U/L Troponin I (<54) ng/L Total Protein (5.7-8.2) g/dL Albumin (3.2-5.0) g/dL Urine Color Pending Urine Clarity Pending Urine pH Pending Ur Specific [place] Pending Urine Protein Pending Urine Ketones Pending Urine Blood Pending Urine Nitrite Pending Urine Bilirubin Pending Urine Urobilinogen Pending Ur Leukocyte Esterase Pending Urine Glucose Pending COVID-19 Source Nasopharynx SARS-CoV-2 (PCR) Negative (Negative) Influenza Type A (PCR) Negative (Negative) Influenza Type B (PCR) Negative (Negative) RSV (PCR) Negative (Negative) 04/09/25 22:17 Blood Culture - Pending Blood 04/09/25 21:22 Blood Culture - Pending Blood Intake and Output - 24 Hour Total 04/09/25 20:40 thru 04/09/25 23:01 Intake Total 400 Balance 400 Weight 61.235 kg Intake: IV 400 Falls Risk Assessment History of Falls No History 04/09/25 20:52 Contributing Factors No Factors 04/09/25 20:52 Ambulatory Aids Independent 04/09/25 20:52 Tubes/Lines None 04/09/25 20:52 Gait Evaluation No gait disturbance 04/09/25 20:52 Cognition No cognitive impairment 04/09/25 20:52 Fall Total Score 0 04/09/25 20:52 Level of Risk Standard/Low Risk 04/09/25 20:52 Problems (Last Reviewed 08/14/23 @ 13:34 by Lulu Maloney MD) SIRS (systemic inflammatory response syndrome) (Acute) CAP (community acquired pneumonia) (Acute) Paroxysmal atrial fibrillation (Chronic) Attestation Statement: By documenting the first initial, last name, and credentials of the reporting nurse below, both parties acknowledge that all relevant information regarding the patient handoff has been communicated, and that all questions have been addressed to ensure continuity and safety of care. Additional Patient Information/Comments: Admit to Med/surg rm 226 through the ED for chest pain, SOB, shaky, body chills. Pt is afebrile. A&O x4. Pt feels weak. Chest x-ray normal but suspecting pneumonia. Elevated WBC's 12.45. Trop. Negative. Received 1250 NS & 1 G Rocephin. And Neg. for flu /RSV/ COVID. Report Received From: Called @ [id number], spoke w/ RAMONITA Anderson.
[2025-04-10] VITALS (28 sets, daily range): BP systolic 81–107; BP diastolic 45–68; PULSE 64–118; RESP 16–26; TEMP 37.1–37.3; O2SAT 90–96
[2025-04-10 00:08] LABS: Glucose Negative (Negative)
--- NOTE | 2025-04-10 00:30 | DI.CT_ITS ---
Exam(s) CT CHEST PE CTA EXAM: CT CHEST PE CTA CLINICAL HISTORY: Pleuritic right chest pain, respiratory alkalosis. TECHNIQUE: Imaging Protocol: CT angiography of the chest was performed using pulmonary embolus protocol. Multi planar reconstructions were performed. CONTRAST MATERIAL: Intravenous: Omnipaque 350 Contrast volume: 100 cc COMPARISON: CR,XR XR PORTABLE CHEST AP from 04/09/2025 FINDINGS: CHEST: PULMONARY ARTERIES: There are no intraluminal filling defects to suggest acute pulmonary emboli. LUNGS: There is significant size infiltrate in the right lower lobe and right middle lobe. There is also a small right pleural effusion. No left pleural effusion. Minimal increased markings in the left lower lobe.. MEDIASTINUM: There is no hilar nor mediastinal adenopathy. Visualized thyroid unremarkable. CARDIAC: Cardiomegaly. No pericardial effusion. The diameter of the ascending thoracic aorta is upper normal. There is no dissection. Ventricular ratio is 1:1. PARTIALLY VISUALIZED UPPERMOST ABDOMEN: There is mild contrast reflux into the intrahepatic IVC. There is a 1.2 cm hypodensity in the right hepatic lobe which cannot be adequately studied on this type of CT scan. Can be further studied with ultrasound Another similar finding is seen medially in the right lobe of the liver. OSSEOUS: Chronic L1 compression fracture. No acute fractures evident. No significant osseous lesions.. IMPRESSION: 1. There is prominent infiltrate in the right middle lobe and right lower lobe. There is a small right pleural effusion.. 2. No evidence of pulmonary emboli. Preliminary V rad report was reviewed. RADIATION DOSE DELIVERED: 97.83mGy.cm Total DLP DATA REPOSITORY: All CT scans at this facility are submitted to the National Radiology Data Registry (NRDR) Dose Index Registry (DIR) with the [employer] (ACR). RADIATION OPTIMIZATION: All CT scans at this facility use at least one of these dose optimization techniques: automated exposure control; mA and/or kV adjustment per patient size (includes targeted exams where dose is matched to clinical indication); or iterative reconstruction.
[2025-04-10 01:00] LABS: Troponin I 7 ng/L (<54)
[2025-04-10] MEDS: Normal Saline Flush 10 ML SYR IVP ×2 (01:29→08:43)
[2025-04-10] MEDS: Normal Saline - Diluent 50 ML VIAL IJ (01:29)
[2025-04-10] MEDS: Omnipaque 350 MG/ML 100 ML BTL IJ (01:30)
--- NOTE | 2025-04-10 02:41 | DI.VRAD_ITS ---
PROCEDURE INFORMATION: Exam: CTA Chest With Contrast Exam date and time: 04/10/2025 2:09 AM Age: 79 years old Clinical indication: Other: Respiratory alkalosis; Other: Pleuritic right chest pain; Additional info: Pleuritic right chest pain, respiratory alkalosis TECHNIQUE: Imaging protocol: Computed tomographic angiography of the chest with contrast. Exam focused on the arteries. 3D rendering (Not supervised by radiologist): MIP and/or 3D reconstructed images were created by the technologist. Contrast material: OMNI 350; Contrast volume: 100 ml; Contrast route: INTRAVENOUS (IV); COMPARISON: CR XR PORTABLE CHEST AP 04/09/2025 9:32 PM FINDINGS: Pulmonary arteries: No pulmonary embolism identified. Aorta: No thoracic aortic aneurysm or dissection. Thyroid: Thyroid gland partially obscured by artifact but normal in size. Lungs: Extensive patchy pulmonary opacity in the dependent portions of the right middle and lower lobes with an appearance suspicious for pneumonia or aspiration. A component of atelectasis is likely also present. Mild dependent atelectasis on the left. Pleural spaces: Small right pleural effusion. No left-sided pleural effusion. No pneumothorax. Heart: Cardiomegaly with multichamber dilatation. Prominent dilatation of the left atrium suggesting mitral valve dysfunction. Prominent dilatation of the right cardiac chambers with an appearance suspicious for right heart failure. Coronary arteries: Coronary artery calcification. Lymph nodes: No pathologically enlarged mediastinal or hilar lymph nodes. Diaphragm: Small hiatal hernia Liver: Small indeterminate hypoattenuating hepatic lesions, incompletely characterized but most likely small cysts and/or hemangiomas. Bones/joints: Lower ribs partially excluded from view and incompletely evaluated. Otherwise, no acute fracture seen among the bones of the chest. Old compression fracture deformity at L1 with involvement of the superior and inferior endplates resulting in moderate loss of anterior vertebral height. Soft tissues: No gross soft tissue mass or fluid collection seen in the chest wall. IMPRESSION: 1. Pneumonia or aspiration in the right middle and lower lobes. 2. Small right pleural effusion. 3. Additional findings, as above. Dictated and Authenticated by: Eusebio Fortune MD. Orderin Mervin Isbell MD
--- NOTE | 2025-04-10 03:27 | NUR.NOTE ---
Report given to RAMONITA Figueroa on Med/Surg prior to patient transfer to floor. Pt BP began to drop and were sustained. Pt denies lightheadedness/dizziness and A&Ox4. Hospitalist called and came to evaluate. Pt started on maintenance IV fluids per provider order for floor. Pt BPs continued to be low. With consult with hospitalist, pt to transfer to ICU as Med/Surg overflow.
[2025-04-10] MEDS: Acetaminophen 325 MG TAB 650 MG PO ×3 (04:18→13:57)
[2025-04-10] MEDS: Normal Saline 1,000 ML 50 ML IV (05:40)
--- NOTE | 2025-04-10 05:50 | W.PC.ACHO ---
Registration Status: REG ER Primary Language: Preferred Language: ED Information & Data Chief Complaint GenMedical 04/09/25 20:56 Triage Note PT states that he had sudden 04/09/25 20:43 onset of shaking SOB and R chest pain chest Medical / Surgical History (Last Reviewed 08/14/23 @ 13:34 by Lulu Maloney MD) Patent foramen ovale with atrial septal aneurysm Atrial septal aneurysm History of basal cell cancer Neuropathy [place] spotted fever Prostatitis Diabetes insipidus Fatigue Scoliosis (Last Reviewed 08/14/23 @ 13:34 by Lulu Maloney MD) History of esophagogastroduodenoscopy (EGD) (~09/2020) H/O vasectomy Hx of tonsillectomy Hx of facial fracture repair Most Recent Vital Signs Temperature 37.3 C 04/10/25 00:46 Temperature Source Oral 04/09/25 21:15 Pulse 101 H 04/10/25 02:45 Pulse 99 H 04/10/25 02:45 Respiratory Rate 25 H 04/10/25 02:45 Respiratory Effort Short of Breath 04/09/25 21:45 Respiratory Depth Normal 04/09/25 21:45 Respiratory Pattern Normal 04/09/25 21:45 Blood Pressure 91/50 L 04/10/25 02:45 Blood Pressure Mean 63 04/10/25 02:45 Pulse Oximetry 92 04/10/25 02:45 Oxygen Delivery Method Room Air 04/09/25 20:52 Oxygen Flow Rate 0 04/09/25 20:43 Pain Level 8 04/09/25 20:43 Allergies ciprofloxacin (From Cipro) Allergy (Intermediate, Verified 04/09/25 20:54) unknown rash lorazepam Adverse Reaction (Verified 04/09/25 20:54) Visual Disturbances Double vision Active Medications Generic Name Dose Route Start Last Admin Trade Name Freq PRN Reason Stop Dose Admin Iohexol 100 ml 04/10/25 01:30 04/10/25 01:30 Omnipaque 350 Mg/Ml 100 Ml Btl IJ 05/10/25 23:59 100 ml DIRECTED KRISTIAN Administration Sodium Chloride 50 ml 04/10/25 01:30 04/10/25 01:29 Normal Saline - Diluent 50 Ml Vial IJ 50 ml DIRECTED KRISTIAN Administration Sodium Chloride 0 ml 04/10/25 01:29 04/10/25 01:29 Normal Saline Flush 10 Ml Syr IVP 10 ml PRN PRN Administration IV IV Catheter Type [Left Forearm Peripheral IV ] IV Catheter Gauge [Left 18 Forearm] Diagnostics 04/10/25 04/09/25 04/09/25 Range/Units 00:27 23:48 22:17 WBC (4.4-10.8) 10^3/uL RBC (4.36-5.78) 10^6/uL Hgb (13.5-17.5) g/dL Hct (40.0-50.0) % MCV (80-95) fL MCH (27.0-33.0) pg MCHC (32.0-36.0) % RDW (11.8-14.1) % Plt Count (130-400) 10^3/uL MPV (8.0-11.0) fL Immature Gran % % Neutrophils % % Lymphocytes % % Monocytes % % Eosinophils % % Basophils % % Nucleated RBC % (0.0-0.3) % Absolute Neutrophils (1.2-6.7) 10^3/uL Absolute Lymphocytes (1.2-3.4) 10^3/uL Absolute Monocytes (0.1-0.8) 10^3/uL Absolute Eosinophils (0.0-0.7) 10^3/uL Absolute Basophils (0.0-0.2) 10^3/uL VBG pH (7.31-7.41) VBG pCO2 (41-51) mmHg VBG pO2 mmHg VBG HCO3 (23-28) mmol/L VBG Total CO2 (24-29) mmol/L VBG O2 Saturation % VBG Base Excess (-2-3) mmol/L VBG Lactate (<or=2.0) mmol/L Sodium (136-145) mmol/L Potassium (3.5-5.1) mmol/L Chloride (98-107) mmol/L Carbon Dioxide (20.0-31.0) mmol/L Anion Gap (3-11) mmol/L BUN (9-23) mg/dL Creatinine (0.73-1.18) mg/dL Est GFR (CKD-EPI 2020) (mL/min/1.73m2) Glucose (74-106) mg/dL Calcium (8.3-10.6) mg/dL Magnesium (1.6-2.6) mg/dL Total Bilirubin (0.2-1.2) mg/dL AST (<34) U/L ALT (10-49) U/L Alkaline Phosphatase (46-116) U/L Troponin I 7 7 (<54) ng/L Total Protein (5.7-8.2) g/dL Albumin (3.2-5.0) g/dL Urine Color Yellow (Yellow) Urine Clarity Clear (Clear) Urine pH 5.5 (5-8) Ur Specific [place] 1.025 (1.005-1.025) Urine Protein Negative (Neg-Trace) mg/dL Urine Ketones Negative (Negative) mg/dL Urine Blood Negative (Negative) Urine Nitrite Negative (Negative) Urine Bilirubin Negative (Negative) Urine Urobilinogen 0.2 (Up to 0.2) mg/dL Ur Leukocyte Esterase Negative (Negative) Urine Glucose Negative (Negative) mg/dL COVID-19 Source SARS-CoV-2 (PCR) (Negative) Influenza Type A (PCR) (Negative) Influenza Type B (PCR) (Negative) RSV (PCR) (Negative) 04/09/25 04/09/25 Range/Units 21:22 20:50 WBC 12.45 H (4.4-10.8) 10^3/uL RBC 3.79 L (4.36-5.78) 10^6/uL Hgb 11.1 L (13.5-17.5) g/dL Hct 34.1 L (40.0-50.0) % MCV 90 (80-95) fL MCH 29.3 (27.0-33.0) pg MCHC 32.6 (32.0-36.0) % RDW 13.5 (11.8-14.1) % Plt Count 275 (130-400) 10^3/uL MPV 9.1 (8.0-11.0) fL Immature Gran % 0.4 % Neutrophils % 92.7 % Lymphocytes % 3.8 % Monocytes % 2.3 % Eosinophils % 0.6 % Basophils % 0.2 % Nucleated RBC % 0.0 (0.0-0.3) % Absolute Neutrophils 11.54 H (1.2-6.7) 10^3/uL Absolute Lymphocytes 0.47 L (1.2-3.4) 10^3/uL Absolute Monocytes 0.29 (0.1-0.8) 10^3/uL Absolute Eosinophils 0.07 (0.0-0.7) 10^3/uL Absolute Basophils 0.02 (0.0-0.2) 10^3/uL VBG pH 7.46 H (7.31-7.41) VBG pCO2 37 L (41-51) mmHg VBG pO2 39 mmHg VBG HCO3 26 (23-28) mmol/L VBG Total CO2 24 (24-29) mmol/L VBG O2 Saturation 77 % VBG Base Excess 2 (-2-3) mmol/L VBG Lactate 1.4 (<or=2.0) mmol/L Sodium 141 (136-145) mmol/L Potassium 4.1 (3.5-5.1) mmol/L Chloride 108 H (98-107) mmol/L Carbon Dioxide 25.3 (20.0-31.0) mmol/L Anion Gap 7.7 (3-11) mmol/L BUN 27 H (9-23) mg/dL Creatinine 0.99 (0.73-1.18) mg/dL Est GFR (CKD-EPI 2020) 72.97 (mL/min/1.73m2) Glucose 95 (74-106) mg/dL Calcium 8.7 (8.3-10.6) mg/dL Magnesium 1.6 (1.6-2.6) mg/dL Total Bilirubin 0.6 (0.2-1.2) mg/dL AST 18 (<34) U/L ALT 15 (10-49) U/L Alkaline Phosphatase 44 L (46-116) U/L Troponin I 6 (<54) ng/L Total Protein 6.3 (5.7-8.2) g/dL Albumin 4.0 (3.2-5.0) g/dL Urine Color (Yellow) Urine Clarity (Clear) Urine pH (5-8) Ur Specific [place] (1.005-1.025) Urine Protein (Neg-Trace) mg/dL Urine Ketones (Negative) mg/dL Urine Blood (Negative) Urine Nitrite (Negative) Urine Bilirubin (Negative) Urine Urobilinogen (Up to 0.2) mg/dL Ur Leukocyte Esterase (Negative) Urine Glucose (Negative) mg/dL COVID-19 Source Nasopharynx SARS-CoV-2 (PCR) Negative (Negative) Influenza Type A (PCR) Negative (Negative) Influenza Type B (PCR) Negative (Negative) RSV (PCR) Negative (Negative) 04/09/25 22:17 Blood Culture - Pending Blood 04/09/25 21:22 Blood Culture - Pending Blood Intake and Output - 24 Hour Total 04/09/25 20:40 thru 04/10/25 00:21 Intake Total 1650 Balance 1650 Weight 61.235 kg Intake: IV 1650 Falls Risk Assessment History of Falls No History 04/09/25 20:52 Contributing Factors No Factors 04/09/25 20:52 Ambulatory Aids Independent 04/09/25 20:52 Tubes/Lines None 04/09/25 20:52 Gait Evaluation No gait disturbance 04/09/25 20:52 Cognition No cognitive impairment 04/09/25 20:52 Fall Total Score 0 04/09/25 20:52 Level of Risk Standard/Low Risk 04/09/25 20:52 Problems (Last Reviewed 08/14/23 @ 13:34 by Lulu Maloney MD) SIRS (systemic inflammatory response syndrome) (Acute) CAP (community acquired pneumonia) (Acute) Paroxysmal atrial fibrillation (Chronic) Attestation Statement: By documenting the first initial, last name, and credentials of the reporting nurse below, both parties acknowledge that all relevant information regarding the patient handoff has been communicated, and that all questions have been addressed to ensure continuity and safety of care. Additional Patient Information/Comments: Patient was snowshoeing in the morning, but in the afternoon had sudden onset of shortness of breath, right sided chest pain worsened with deep breath, and rigors. On arrival to ED patient was in AF/RVR and chest xray showing pneumonia. Patient has history of AF, but is not on rate controlled medication. Does take eliquis. Serology negative. Was given bolus, and started on antibiotics in the ED. Did develop soft blood pressures in the ED. No pressors needed at the time. is with patient at bedside. Report Received From: RAMONITA Anderson
[2025-04-10 06:37] LABS: HCT 31.0 % (40.0-50.0); HGB 10.2 g/dL (13.5-17.5); MCH 29.7 pg (27.0-33.0); MCHC 32.9 % (32.0-36.0); MCV 90 fL (80-95); MPV 9.4 fL (8.0-11.0); Platelet Count 242 10^3/uL (130-400); RBC 3.43 10^6/uL (4.36-5.78); RDW 13.7 % (11.8-14.1); RDW-SD 45.5 fL; WBC 16.67 10^3/uL (4.4-10.8)
[2025-04-10 07:01] LABS: TSH (W/Ref FT4) 0.49 uIU/mL (0.55-4.78)
[2025-04-10 07:06] LABS: ALT 16 U/L (10-49); AST 17 U/L (<34); Albumin 3.3 g/dL (3.2-5.0); Alkaline Phosphatase 32 U/L (46-116); Anion Gap 10.3 mmol/L (3-11); BUN 23 mg/dL (9-23); Bilirubin, Total 0.9 mg/dL (0.2-1.2); CO2 22.7 mmol/L (20.0-31.0); Calcium 8.0 mg/dL (8.3-10.6); Chloride 109 mmol/L (98-107); Glucose 117 mg/dL (74-106); Magnesium 1.5 mg/dL (1.6-2.6); Potassium 4.3 mmol/L (3.5-5.1); Sodium 142 mmol/L (136-145); Total Protein 5.3 g/dL (5.7-8.2)
[2025-04-10 07:48] LABS: Procalcitonin 0.18 ng/mL
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
[2025-04-10] MEDS: Lactobacillus Acidophilus CAP 1 CAP PO (08:42)
[2025-04-10] MEDS: Apixaban 5 MG TAB PO (08:42)
[2025-04-10] MEDS: Cholecalciferol (Vitamin D3) 1,000 UNIT TAB 2000 UNITS PO (08:42)
[2025-04-10] MEDS: Magnesium Oxide 400 MG TAB PO (08:42)
[2025-04-10] MEDS: Tamsulosin 0.4 MG CAPCR 0.8 MG PO (08:43)
--- NOTE | 2025-04-10 14:50 | PDOC.CMDIS ---
Date of service: 04/10/25 Time of Service: 14:50 LACE Index Scoring Tool Questions: Length of Stay (in days): 1 Was the patient admitted via the E.D.?: Yes E.D. Visits: 1 Answers: Total Score: 5 Risk of Readmission: Low Risk Care Management Discharge Plan Reason for Hospitalization: Pneumonia Discharge Plan: Sunil is discharge home via private vehicle with family. He will follow up with community providers and continue per his discharge plan of care. No new services are indicated at the time of discharge. Patient/Family Education Needs: Review discharge instructions and plan for outpatient follow up. Discuss ask me three. SDOH Health Related Social Needs: Health related social needs education Health related social needs details lives with spouse. Owns their own home Health related social needs details: lives with spouse. Owns their own home
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
== END 2025-04-10 16:25 | disposition home or self-care (01) | DRG 194 ==
LOC: ER 23:26 → ICU 04-10 03:20
PROVIDERS: Admitting Provider Family Medicine; Emergency Provider Emergency Medicine; PCP Family Medicine; Responsible Provider Family Medicine; Visit Provider Family Medicine
DX: J18.9 Pneumonia, unspecified organism (principal); E87.3 Alkalosis; Q21.12 Patent foramen ovale; I25.3 Aneurysm of heart; I48.0 Paroxysmal atrial fibrillation; Z79.01 Long term (current) use of anticoagulants; D72.829 Elevated white blood cell count, unspecified; H90.3 Sensorineural hearing loss, bilateral; K44.9 Diaphragmatic hernia without obstruction or gangrene; K21.9 Gastro-esophageal reflux disease without esophagitis; K22.70 Barrett's esophagus without dysplasia; K58.9 Irritable bowel syndrome, unspecified; D64.9 Anemia, unspecified; K57.30 Diverticulosis of large intestine without perforation or abscess without bleeding; G62.9 Polyneuropathy, unspecified; R07.89 Other chest pain; R00.0 Tachycardia, unspecified
CPT/HCPCS: 00123; 36415; 71275; 80053; 82805; 84145; 85027; 87040; 87637; 93005; 96361; 96365; 96367; 99285; 71045; 81003; 83605; 83735; 84439; 84443; 84484; 85025; 93010; 99223; 99238; J0131; J0456; J0696; J3490